=== PATIENT | female | born 1935 | race Caucasian/White ===

== ENCOUNTER 2016-12-05 21:05 | Inpatient (IN) | payer OTHER, BC ==
--- NOTE | 2016-12-05 21:24 | PDOC ---
[id number] FALL Time Seen by Provider: 12/05/16 21:24 History Source: Patient - History of Present Illness Initial Comments: 12/05/16 23:35 80 year old female s/p fall "legs feeling shaky for 2 days." while using a walker. patient hit head and c/o pain to lumbarsacral area. denies hip pain, headache, neck, fever, cough, chest pain, urinary complaints. patient has history of hypertension, DM Past History - Past Medical History Allergies/Adverse Reactions: Allergies Allergy/AdvReac Type Severity Reaction Status Date / Time amoxicillin [Amoxicillin] Allergy Verified 12/05/16 21:39 Penicillins Allergy Verified 12/05/16 21:39 escitalopram AdvReac Intermediate Verified 12/05/16 21:39 levofloxacin [Levofloxacin] AdvReac Intermediate Verified 12/05/16 21:39 Home Medications: Ambulatory Orders Atorvastatin Calcium 20 mg PO HS 11/23/15 Folic Acid 1 mg PO DAILY 11/23/15 Furosemide [Lasix -] 40 mg PO DAILY 11/23/15 Gabapentin 300 mg PO BID 11/23/15 Montelukast Na [Singulair -] 10 mg PO HS 11/23/15 Diltiazem Cd [Cardizem Cd -] 120 mg PO DAILY #30 cap.cd.24h 11/27/15 Alprazolam 1 mg PO QID #120 tablet MDD 4 03/01/16 Oxycodone HCl/Acetaminophen [Oxycodone-Acetaminophen 10-325] 1 each PO QID #120 tablet MDD 4 03/01/16 Bacitracin - [Bacitracin Topical Ointment -] 1 applic TP DAILY #1 tube 06/20/16 Cephalexin Monohydrate [Keflex -] 500 mg PO BID #14 capsule 06/20/16 Levothyroxine [Synthroid -] 25 mcg PO DAILY 12/05/16 Potassium Chloride 0 meq PO DAILY 12/05/16 Anemia: No Asthma: No Cancer: No Cardiac Disorders: No CVA: No COPD: Yes CHF: No Dementia: No Diabetes: No GI Disorders: No Disorders: Yes (uti) HTN: Yes Hypercholesterolemia: Yes Liver Disease: No Suicide Attempt (Hx): No Seizures: No Thyroid Disease: No - Surgical History Abdominal Surgery: No Cardiac Surgery: No Cholecystectomy: Yes Lung Surgery: No Neurologic Surgery: No - Immunization History Td Vaccination: Yes TDAP Vaccination: Yes Immunization Up to Date: Yes - Psycho/Social/Smoking Cessation Hx Anxiety: No Suicidal Ideation: No Smoking Status: Yes Smoking History: Former smoker Years of Tobacco Use: 0 Have you smoked in the past 12 months: Yes Number of Cigarettes Smoked Daily: 20 If you are a former smoker, when did you quit?: 2016 Cigars Per Day: 0 'Breaking Loose' booklet given: 11/23/15 Hx Alcohol Use: No Drug/Substance Use Hx: No Substance Use Type: None Hx Substance Use Treatment: No Review of Systems - Review of Systems Able to Perform ROS?: Yes Is the patient limited Greek proficient: No Constitutional: No: Symptoms Reported, See HPI, Chills, Diaphoresis, Fever, Loss of Appetite, Malaise, Night Sweats, Weakness, Weight Stable, Unintentional Wgt. Loss, Unexplained wgt Loss, Other Cardiac (ROS): No: Symptoms Reported, See HPI, Chest Pain, Edema, Irregular Heart Rate, Lightheadedness, Palpitations, Syncope, Chest Tightness, Other ABD/GI: No: Symptoms Reported, See HPI, Abdominal Distended, Abd. Pain w/ defecation, Blood Streaked Bowels, Constipated, Diarrhea, Difficulty Swallowing , Nausea, Poor Appetite, Poor Fluid Intake, Rectal Bleeding, Vomiting, Indigestion, Abdominal cramping, Tarry Stools, Other Integumentary: No: Symptoms Reported, See HPI, Bruising, Change in Color, Change in Hair/Nails, Dryness, Erythema, Flushing, Lesions, Lumps, Pallor, Pruritus, Rash, Sweating, Other Neurological: Yes: Weakness *Physical Exam - Vital Signs 12/05/16 23:41 Last Vital Signs Temp Pulse Resp BP Pulse Ox 98.9 F 103 H 20 127/61 82 L 12/05/16 21:35 12/05/16 21:35 12/05/16 21:35 12/05/16 21:35 12/05/16 21:35 12/05/16 23:52 HR: 73 o2 sat 93% on Room air - Physical Exam General Appearance: Yes: Appropriately Dressed Respiratory/Chest: positive: Lungs Clear, Normal Breath Sounds Cardiovascular: positive: Regular Rhythm, Regular Rate Gastrointestinal/Abdominal: positive: Normal Bowel Sounds, Soft Musculoskeletal: positive: Vertebral Tenderness (lumbar sacral area tenderness) Extremity: positive: Normal Capillary Refill, Normal Inspection, Normal Range of Motion Integumentary: positive: Normal Color, Dry, Warm Neurologic: positive: Fully Oriented ED Treatment Course - LABORATORY CBC & Chemistry Diagram: 12/05/16 21:49 12/05/16 21:49 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 - 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: A: near syncope, elderly fall hypokalemia P: potassium replacement cbc cmp ct head cervical spine lumbar sacral spine. patient signed out to Dr. yoo. patient to be admitted under Dr. finley's service *DC/Admit/Observation/Transfer Diagnosis at time of Disposition: Near syncope, Fall in elderly patient, Hypokalemia - Discharge Dispostion Admit: Yes - Referrals
[2016-12-05 22:15] LABS: BASOPHIL 0.2 % (0-2.0); MCHC 33.4 g/dl (32.0-36.0); MEAN CELL VOLUME 92.9 fl (80-96); MEAN PLT VOLUME 8.4 fl (7.5-11.1); NEUTROPHILS 85.3 % (42.8-82.8); PLATELET COUNT 296 K/MM3 (134-434)
[2016-12-05 22:21] LABS: INR 1.19 (0.82-1.09); PROTHROMBIN TIME (PATIENT) 13.1 SEC (9.98-11.88)
[2016-12-05 22:56] LABS: ALBUMIN 3.6 g/dl (3.4-5.0); ANION GAP 12 (8-16); BILIRUBIN,TOTAL 1.2 mg/dL (0.2-1.0); CALCIUM 9.4 mg/dL (8.5-10.1); CO2 43 mmol/L (21-32); COCKROFT - GAULT 32.1215; GLUCOSE,RANDOM 123 mg/dL (74-106); MAGNESIUM 2.6 mg/dL (1.8-2.4); SGOT/AST 17 U/L (15-37); SGPT/ALT 14 U/L (12-78); TOT PROT 7.6 g/dl (6.4-8.2)
[2016-12-05 22:59] LABS: ALK PHOS 140 U/L (45-117); TROPONIN I < 0.02 ng/ml (0.00-0.05)
[2016-12-05] MEDS ORDERED: KCL 10 MEQ IVPB 100 ML IVPB SCH (23:15)
[2016-12-05] MEDS ORDERED: POTASSIUM CHLORIDE TABS 20 MEQ TABLET.ER (FP) PO ONE (23:39)
[2016-12-05] MEDS ORDERED: KCL 10 MEQ IVPB 100 ML IVPB ONE (23:52)
--- NOTE | 2016-12-06 00:12 | PDOC ---
*Physical Exam - Vital Signs Last Vital Signs Temp Pulse Resp BP Pulse Ox 98.9 F 103 H 20 127/61 82 L 12/05/16 21:35 12/05/16 21:35 12/05/16 21:35 12/05/16 21:35 12/05/16 21:35 - Physical Exam Comments: 12/06/16 00:12 The patient was examined by [LAURA Luke] under my direct supervision. I personally evaluated the patient. I concur with the above findings and the plan of care. ED Treatment Course - LABORATORY CBC & Chemistry Diagram: 12/05/16 21:49 12/05/16 21:49 - ADDITIONAL ORDERS Additional order review: Laboratory Results 12/05/16 12/05/16 21:49 21:49 INR 1.19 H Sodium 138 Potassium 2.2 L* D Chloride 83 L D Carbon Dioxide 43 H D Anion Gap 12 BUN 52 H D Creatinine 2.0 H D Creat Clearance w eGFR 23.97 Random Glucose 123 H Calcium 9.4 Magnesium 2.6 H Total Bilirubin 1.2 H D AST 17 ALT 14 D Alkaline Phosphatase 140 H Creatine Kinase 41 Troponin I < 0.02 Total Protein 7.6 Albumin 3.6 12/05/16 21:49 RBC 4.01 MCV 92.9 MCHC 33.4 RDW 16.0 H MPV 8.4 Neutrophils % 85.3 H D Lymphocytes % 7.1 L D Monocytes % 6.4 Eosinophils % 1.0 Basophils % 0.2 - RADIOLOGY Radiology Studies Ordered: Category Date Time Status CHEST X-RAY PORTABLE* [RAD] Stat Radiology 12/05/16 21:39 Completed *DC/Admit/Observation/Transfer Diagnosis at time of Disposition: Near syncope - Referrals Referrals: Lanie Teresa MD [Primary Care Provider] - - Patient Instructions - Post Discharge Activity
[2016-12-06] MEDS ORDERED: POTASSIUM CHLORIDE TABS 20 MEQ TABLET.ER (FP) PO ONE ×3 (00:15→15:32)
[2016-12-06] MEDS: KCL 10 MEQ IVPB 100 ML IVPB SCH ×4 (00:16→17:00)
[2016-12-06] MEDS ORDERED: KCL 10 MEQ IVPB 100 ML IVPB ONE ×2 (01:26→16:45)
[2016-12-06] MEDS ORDERED: LEVOTHYROXINE NA 25 MCG TABLET (FP) ONE (05:55)
[2016-12-06] MEDS: LEVOTHYROXINE NA 25 MCG TABLET (FP) PO SCH (06:04)
--- NOTE | 2016-12-06 09:03 | EKG ---
Test Reason : Blood Pressure : / mmHG Vent. Rate : 076 BPM Atrial Rate : 076 BPM P-R Int : 202 ms QRS Dur : 116 ms QT Int : 406 ms P-R-T Axes : 040 -29 034 degrees QTc Int : 456 ms NORMAL SINUS RHYTHM INCOMPLETE LEFT BUNDLE BRANCH BLOCK NONSPECIFIC ST ABNORMALITY WHEN COMPARED WITH ECG OF 17-JUN-2016 20:45, INCOMPLETE LEFT BUNDLE BRANCH BLOCK IS NOW PRESENT Confirmed by RACHNA CADENA MD ([id number]) on 12/06/2016 9:03:17 AM Referred By: Confirmed By:RACHNA CADENA MD
[2016-12-06] MEDS ORDERED: POTASSIUM CHLORIDE ORAL LIQUID 20 MEQ/15 ML PO SCH (10:00)
[2016-12-06] MEDS ORDERED: PATIENT'S OWN MEDICATION (NON-FORMULARY) (Oxycodone Hcl/Acetaminophen [Oxycodone-Acetamino PO SCH (10:00)
[2016-12-06] MEDS ORDERED: PATIENT'S OWN MEDICATION (NON-FORMULARY) (Alprazolam [Alprazolam] 0.5 MG) PO SCH (10:00)
[2016-12-06] MEDS ORDERED: FUROSEMIDE 40 MG TABLET (FP) PO SCH (10:00)
--- NOTE | 2016-12-06 10:16 | HP ---
Admitting History and Physical - Primary Care Physician PCP: Brenda Tan I - Admission Chief Complaint: fall History of Present Illness: 1 year old female s/p fall "legs feeling shaky for 2 days." while using a walker. patient hit head and c/o pain to lumbarsacral area. denies hip pain, headache, neck, fever, cough, chest pain, urinary complaints. patient has history of hypertension, DM patient was preparing her dinner and was at [facility] when she truned around to put tray on table her legs gave way and she fell no los of consciosnuss no vomitting no diarrhea in days prior to the fall she has fallen before at home History Source: Patient, Medical Record - Past Medical History [employer]: Yes: TIA Cardiovascular: Yes: HTN, Hyperlipdemia Pulmonary: Yes: COPD Gastrointestinal: Yes: GERD Musculoskeletal: Yes: Chronic low back pain Endocrine: Yes: Hypothyroidism - Past Surgical History Past Surgical History: Yes: Cholecystectomy Additional Past Surgical History: righ hip pinning - Smoking History Smoking history: Former smoker Have you smoked in the past 12 months: Yes Aproximately how many cigarettes per day: 20 If you are a former smoker, when did you quit?: 2016 - Alcohol/Substance Use Hx Alcohol Use: No Home Medications - Allergies Allergies/Adverse Reactions: Allergies Allergy/AdvReac Type Severity Reaction Status Date / Time amoxicillin [Amoxicillin] Allergy Verified 12/05/16 21:39 Penicillins Allergy Verified 12/05/16 21:39 escitalopram AdvReac Intermediate Verified 12/05/16 21:39 levofloxacin [Levofloxacin] AdvReac Intermediate Verified 12/05/16 21:39 - Home Medications Home Medications: Ambulatory Orders Atorvastatin Calcium 20 mg PO HS 11/23/15 Folic Acid 1 mg PO DAILY 11/23/15 Furosemide [Lasix -] 40 mg PO DAILY 11/23/15 Gabapentin 300 mg PO BID 11/23/15 Montelukast Na [Singulair -] 10 mg PO HS 11/23/15 Diltiazem Cd [Cardizem Cd -] 120 mg PO DAILY #30 cap.cd.24h 11/27/15 Alprazolam 1 mg PO QID #120 tablet MDD 4 03/01/16 Oxycodone HCl/Acetaminophen [Oxycodone-Acetaminophen 10-325] 1 each PO QID #120 tablet MDD 4 03/01/16 Bacitracin - [Bacitracin Topical Ointment -] 1 applic TP DAILY #1 tube 06/20/16 Cephalexin Monohydrate [Keflex -] 500 mg PO BID #14 capsule 06/20/16 Levothyroxine [Synthroid -] 25 mcg PO DAILY 12/05/16 Potassium Chloride 0 meq PO DAILY 12/05/16 Review of Systems - Review of Systems Constitutional: reports: Other (hungry) HENT: reports: No Symptoms Neck: reports: No Symptoms Cardiovascular: reports: No Symptoms Respiratory: reports: No Symptoms Gastrointestinal: reports: No Symptoms Genitourinary: reports: No Symptoms Physical Examination Vital Signs: Vital Signs Temperature 98.9 F 12/05/16 21:35 Pulse Rate 80 12/06/16 05:46 Respiratory Rate 20 12/06/16 05:46 Blood Pressure 108/52 12/06/16 05:46 O2 Sat by Pulse Oximetry (%) 82 L 12/05/16 21:35 Constitutional: Yes: Calm Neck: Yes: Trachea Midline Cardiovascular: Yes: Regular Rate and Rhythm, S1, S2 Respiratory: Yes: CTA Bilaterally Gastrointestinal: Yes: Normal Bowel Sounds, Soft Edema: Yes (trace) Neurological: Yes: Alert, Oriented Imaging - Results X-ray: Report Reviewed Cat Scan: Report Reviewed Problem List - Problems (1) Fall in elderly patient Assessment/Plan: r/o infectious eitology s eletrolyte imbalance check UA - leukocytosis on labs, hypokalemia PT eval snf placment PMR Code(s): R29.6 - REPEATED FALLS (2) Acute kidney injury Assessment/Plan: iv hydration renal sono urine analysis and lytes renal eval Code(s): N17.9 - ACUTE KIDNEY FAILURE, UNSPECIFIED (3) Hypokalemia Assessment/Plan: repleted recheck K renal on board magneusim level is ok hold duiretic urine lytes Code(s): E87.6 - HYPOKALEMIA (4) HLD (hyperlipidemia) Assessment/Plan: lipid panel statin Code(s): E78.5 - HYPERLIPIDEMIA, UNSPECIFIED (5) HTN (hypertension) Assessment/Plan: BP is ok off meds Code(s): I10 - ESSENTIAL (PRIMARY) HYPERTENSION (6) LBP (low back pain) Assessment/Plan: pain managmeent with dr mercy benson Code(s): M54.5 - LOW BACK PAIN Qualifiers: Chronicity: chronic (7) Hypothyroid Assessment/Plan: synthroid check tsh Code(s): E03.9 - HYPOTHYROIDISM, UNSPECIFIED (8) Anxiety Assessment/Plan: alprazolam Code(s): F41.9 - ANXIETY DISORDER, UNSPECIFIED
[2016-12-06 10:25] LABS: CALCIUM 9.6 mg/dL (8.5-10.1); COCKROFT - GAULT 45.8915; CREATININE 1.4 mg/dL (0.55-1.02); MAGNESIUM 2.5 mg/dL (1.8-2.4)
[2016-12-06] MEDS: FOLIC ACID 1 MG TABLET (FP) PO SCH (10:35)
[2016-12-06] MEDS: GABAPENTIN 300 MG CAPSULE (FP) PO SCH ×2 (10:36→22:40)
[2016-12-06] MEDS: oxyCODONE HCL 5 MG TABLET PO SCH ×2 (10:36→14:41)
[2016-12-06] MEDS: ACETAMINOPHEN 325 MG TABLET (FP) PO SCH ×2 (10:36→14:42)
[2016-12-06] MEDS: ALPRAZolam 0.25 MG TABLET PO SCH ×2 (10:36→14:43)
--- NOTE | 2016-12-06 11:00 | PN ---
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 (short form) - Note 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: ID Consult dictated S/P Mechanical fall Leukocytosis, source unclear Chronic leukocytosis noted on review of prior admissions Azotemia Obtain U/A, c/s Await blood c/s Observe off antibiotics
[2016-12-06] MEDS ORDERED: ACETAMINOPHEN 325 MG TABLET (FP) ONE (11:41)
[2016-12-06] MEDS ORDERED: ALPRAZolam 0.25 MG TABLET ONE (11:42)
[2016-12-06] MEDS ORDERED: dilTIAZem HCL 60 MG TABLET (FP) ONE (11:43)
[2016-12-06] MEDS ORDERED: oxyCODONE HCL 5 MG TABLET ONE ×2 (11:43→11:45)
[2016-12-06] MEDS ORDERED: FOLIC ACID 1 MG TABLET (FP) ONE (11:43)
[2016-12-06] MEDS ORDERED: GABAPENTIN 100 MG CAPSULE (FP) ONE ×2 (11:43→11:44)
--- NOTE | 2016-12-06 11:58 | CON.CARD ---
Consult Consult Specialty:: Cardiology Referred by:: Dr. Teresa Reason for Consultation:: Pre-syncope - History of Present Illness Chief Complaint: Fall at home History of Present Illness: This is a 80 yo former smoker F with medical history of HTN, DM, COPD, and hypothyroidism, who was admitted after falling at home. She states that she was at home when she fell after feeling her legs shaking s/p hip and head trauma. Denies LOC, weakness, STRONG. She also denies any CP, palpitations, dizziness, lightheadedness, or abnormal movements prior or after episode. No current complaints. EMS brought her to ED where she was found to have severe hypokalemia (2.2), STEVEN. Negative CT head. K has been repleted. Admitted for further treatment and work up. - History Source History Provided By: Patient Limitations to Obtaining History: No Limitations - Past Medical History [employer] POL[employer]ER HAND: Yes: TIA Cardio/Vascular: Yes: HTN, Hyperlipdemia Pulmonary: Yes: COPD Gastrointestinal: Yes: GERD Musculoskeletal: Yes: Chronic low back pain Endocrine: Yes: Hypothyroidism - Past Surgical History Past Surgical History: Yes: Cholecystectomy - Alcohol/Substance Use Hx Alcohol Use: No - Smoking History Smoking history: Former smoker Have you smoked in the past 12 months: Yes Aproximately how many cigarettes per day: 20 If you are a former smoker, when did you quit?: 2016 - Social History Usual Living Arrangement: Assisted Living Home Medications - Allergies Allergies/Adverse Reactions: Allergies Allergy/AdvReac Type Severity Reaction Status Date / Time amoxicillin [Amoxicillin] Allergy Verified 12/05/16 21:39 Penicillins Allergy Verified 12/05/16 21:39 escitalopram AdvReac Intermediate Verified 12/05/16 21:39 levofloxacin [Levofloxacin] AdvReac Intermediate Verified 12/05/16 21:39 - Home Medications Home Medications: Ambulatory Orders Atorvastatin Calcium 20 mg PO HS 11/23/15 Folic Acid 1 mg PO DAILY 11/23/15 Furosemide [Lasix -] 40 mg PO DAILY 11/23/15 Gabapentin 300 mg PO BID 11/23/15 Montelukast Na [Singulair -] 10 mg PO HS 11/23/15 Diltiazem Cd [Cardizem Cd -] 120 mg PO DAILY #30 cap.cd.24h 11/27/15 Alprazolam 1 mg PO QID #120 tablet MDD 4 03/01/16 Oxycodone HCl/Acetaminophen [Oxycodone-Acetaminophen 10-325] 1 each PO QID #120 tablet MDD 4 03/01/16 Bacitracin - [Bacitracin Topical Ointment -] 1 applic TP DAILY #1 tube 06/20/16 Cephalexin Monohydrate [Keflex -] 500 mg PO BID #14 capsule 06/20/16 Levothyroxine [Synthroid -] 25 mcg PO DAILY 12/05/16 Potassium Chloride 0 meq PO DAILY 12/05/16 Review of Systems - Review of Systems Constitutional: reports: No Symptoms Cardiovascular: reports: No Symptoms Respiratory: reports: No Symptoms Gastrointestinal: reports: No Symptoms Musculoskeletal: reports: Back Pain Neurological: reports: No Symptoms - Risk Factors Known Risk Factors: Yes: Age, Diabetes Mellitus, Hypertension, Physical Inactivity Vital Signs: Vital Signs Temperature 98.9 F 12/05/16 21:35 Pulse Rate 80 12/06/16 05:46 Respiratory Rate 20 12/06/16 05:46 Blood Pressure 108/52 12/06/16 05:46 O2 Sat by Pulse Oximetry (%) 95 12/05/16 21:40 Constitutional: Yes: Well Nourished (Dry mucosa), No Distress, Calm Eyes: Yes: WNL Respiratory: Yes: WNL, CTA Bilaterally Gastrointestinal: Yes: Normal Bowel Sounds, Soft, Abdomen, Obese Cardiovascular: Yes: Regular Rate and Rhythm JVD: No Carotid Bruit: No Heart Sounds: Yes: S1, S2. No: S3, S4, Bruit Extremities: Yes: WNL (Warm extremities. Chronic skin changes) Edema: No Peripheral Pulses WNL: Yes Neurological: Yes: Alert, Oriented - Other Data Labs, Other Data: CBC, BMP 12/06/16 09:44 INR, PTT INR 1.19 (0.82-1.09) H 12/05/16 21:49 Troponin, BNP 12/05/16 21:49 Trop onin I < 0.02 Cr: 2.0 to 1.4. NSR. Normal axis. Incomplete LBBB. Non-specific ST-T changes. Echo: Report Reviewed (10/2015: Normal EF. Normal LV size and function. Normal RV function. Trace MR. Mild Aortic sclerosis.) Ejection Fraction %: LVEF > or = 40 % (10/2015) Imaging - Results X-ray: Image Reviewed EKG: Image Reviewed Problem List - Problems (1) Acute kidney injury Code(s): N17.9 - ACUTE KIDNEY FAILURE, UNSPECIFIED (2) Fall in elderly patient Code(s): R29.6 - REPEATED FALLS (3) Hypokalemia Code(s): E87.6 - HYPOKALEMIA (4) COPD (chronic obstructive pulmonary disease) Code(s): J44.9 - CHRONIC OBSTRUCTIVE PULMONARY DISEASE, UNSPECIFIED (5) HTN (hypertension) Code(s): I10 - ESSENTIAL (PRIMARY) HYPERTENSION Assessment/Plan 80 yo former smoker F with medical history of HTN, DM, COPD, and hypothyroidism , admitted after a mechanical fall at home. Patient was found to have STEVEN and severe hypokalemia. No CV symptoms. There are no signs of HF, fluid overload, or active CV ischemia. STEVEN likely pre-renal? Work-up by primary team Hypokalemia: No evidence of tachy - bradyarrhythmias. Recs. Telemetry Follow ECG until normalization of electrolytes. Replete K to keep it within the normal limits (4-5). Gentle hydration. Avoid nephrotoxic meds for now. Hold diuretics. Continue other medical therapy. Recommend echocardiogram for functional evaluation. Recommendations discussed with primary team Will follow with you. Thank you.
--- NOTE | 2016-12-06 12:08 | CONS ---
DATE OF CONSULTATION: DATE OF DICTATION: 12/06/2016 HISTORY OF PRESENT ILLNESS: The patient is an 80-year-old female who is evaluated for leukocytosis. Patient was seen in the emergency department. She was taken to the hospital after a mechanical fall at home. Patient states that she was in her kitchen when she lost her balance, her legs gave out, and she fell, sustaining trauma to her coccyx and posterior head. No loss of consciousness was reported. She was evaluated in the emergency room, where a CAT scan of the head was negative for infarct or bleed. She was noted to be hypokalemic. In addition, she was noted to have an elevated white blood cell count. Chest x-ray showed increased markings bilaterally. At the present time, she is awake and alert. She denies any recent febrile illness. She denies any focal complaint other than pain in the coccyx area. No complaints of recent respiratory tract illness. Denies chest pain, shortness of breath, cough, or sputum production. Denies any vomiting or diarrhea. No dysuria or hematuria. No complaints of infected skin wounds. PAST MEDICAL HISTORY: Positive for COPD, hypertension, hyperlipidemia, hypothyroidism, history of cellulitis of the lower extremities in the past. PAST SURGICAL HISTORY: Status post cholecystectomy and hip surgery. ALLERGIES: PENICILLIN and FLUOROQUINOLONES. Patient reports developing rash years ago to PENICILLIN. No history of anaphylaxis. She has tolerated cephalosporins in the past. The nature of the QUINOLONE allergy not clear. SOCIAL HISTORY: Patient lives in the community. She is a former smoker; she stopped 9 months ago after a 50-year history of tobacco use. SYSTEMS REVIEW:Neurologic: No loss of consciousness, seizure activity, or focal weakness. Cardiac: Negative chest pain or palpitations. Respiratory: Negative cough or sputum production. Gastrointestinal: Negative vomiting or diarrhea. Genitourinary: Negative for urinary tract infection. LABORATORY DATA: White count 13.0, 85 neutrophils, 7 lymphocytes, 6 monocytes, hematocrit 37.2, platelet count 296. Chest x-ray shows increased markings bilaterally, no focal infiltrate. PHYSICAL EXAMINATION: General: She is awake and alert, lying in the stretcher. She is in no acute distress. Vital Signs: Temperature 98.9, blood pressure 108/52, pulse 80, regular, respirations 20 per minute. HEENT: Sclerae anicteric. Cardiac: Heart sounds S1, S2. Lungs: Clear. No rhonchi, rales, or wheezing. Abdomen: Soft, obese. No tenderness elicited. No mass, rebound, or rigidity. Extremities: Negative for edema. There was chronic venostasis dermatitis. No cellulitis is noted. IMPRESSION: 1. Leukocytosis, unclear source. 2. Status post mechanical fall with sacral and head trauma. 3. Azotemia. RECOMMENDATIONS: Source of leukocytosis not clear. Obtain urinalysis and urine culture. In the absence of any evidence of urinary tract infection, would observe off antibiotic therapy. Await blood culture results. Repeat CBC. Will follow. Thank you for the kind referral. RACHNA GARNER M.D. JOVANNA/[id number]
[2016-12-06 12:42] LABS: URINE APPEARANCE CLEAR; URINE BILIRUBIN NEGATIVE (NEGATIVE); URINE COLOR STRAW; URINE GLUCOSE (UA) NEGATIVE (NEGATIVE); URINE KETONE NEGATIVE (NEGATIVE); URINE LEUK ESTERASE NEGATIVE (NEGATIVE); URINE NITRITE NEGATIVE (NEGATIVE); URINE PROTEIN NEGATIVE (NEGATIVE); URINE UROBILINOGEN NEGATIVE E.U./dl (0.2-1.0)
[2016-12-06 12:45] LABS: URINE BLOOD 2+ (NEGATIVE)
[2016-12-06 12:47] LABS: URINE HYALINE CAST 8 /lpf; URINE MUCUS RARE; URINE RBC 4 /hpf (0-3); URINE WBC <1 /hpf (3-5)
--- NOTE | 2016-12-06 12:48 | CONSULT ---
Consult - text type - Consultation Consultation Note: Renal Consult for STEVEN and Hypokalemia This is a 80 year old woman with PMhx of Hypertension, Hypothyrodism, COPD, Osteoarthritis who presented s/p fall at home with STEVEN with BUN/Cr of 52/2. Pt reports that her legs felt weak and gave out on her. Denies any LOC or head trauma. No chest pain, palpitations, ABd pain, N/V/D. Pt has been on lasix for mangement of LE edema. Reports not eating or drinking well the last few days. No flank pain. Denies any NSAID use. No recent abx use. No rash. Given KCl supplamentation and IVF in the ED. PMhx: as above Allergies: As per EMR Family Hx: NC Social Hx: Former smoker ROS: As per HPI, all other pertient ros negative Home Meds: Home Medications Medication Instructions Recorded Atorvastatin Calcium 20 mg PO HS 11/23/15 Folic Acid 1 mg PO DAILY 11/23/15 Furosemide [Lasix -] 40 mg PO DAILY 11/23/15 Gabapentin 300 mg PO BID 11/23/15 Montelukast Na [Singulair -] 10 mg PO HS 11/23/15 Diltiazem Cd [Cardizem Cd -] 120 mg PO DAILY #30 cap.cd.24h 11/27/15 Alprazolam 1 mg PO QID #120 tablet MDD 4 03/01/16 Oxycodone HCl/Acetaminophen 1 each PO QID #120 tablet MDD 4 03/01/16 [Oxycodone-Acetaminophen 10-325] Bacitracin - [Bacitracin Topical 1 applic TP DAILY #1 tube 06/20/16 Ointment -] Cephalexin Monohydrate [Keflex -] 500 mg PO BID #14 capsule 06/20/16 Levothyroxine [Synthroid -] 25 mcg PO DAILY 12/05/16 Potassium Chloride 0 meq PO DAILY 12/05/16 Vital Signs Temperature 98.9 F 12/05/16 21:35 Pulse Rate 80 12/06/16 05:46 Respiratory Rate 20 12/06/16 05:46 Blood Pressure 108/52 12/06/16 05:46 O2 Sat by Pulse Oximetry (%) 95 12/05/16 21:40 Intake & Output 12/03/16 12/04/16 12/05/16 12/06/16 23:59 23:59 23:59 23:59 Weight 200 lb Gen: NAD, awake and alert HEENT: NC/AT, Dry MM, No JVD CVS: RRR, No M/R Lungs: + congestion at lung bases Abd: soft NT/ND Ext: Trace edema in LE, no clubbing or cyanosis : No bladder distension CBC, BMP 12/05/16 21:49 12/06/16 09:44 Laboratory Tests 12/05/16 12/05/16 12/06/16 21:49 21:49 09:44 Lymphocytes % 7.1 L D BUN 52 H D 41 H D Creatinine 2.0 H D 1.4 H D Calcium 9.6 Magnesium 2.5 H Urine Protein Urine Blood U Random Total Protein Ur Random Sodium Ur Random Urea Nitrogn 12/06/16 12/06/16 12/06/16 12:26 12:26 12:26 Lymphocytes % BUN Creatinine Calcium Magnesium Urine Protein Negative Urine Blood 2+ H U Random Total Protein Ur Random Sodium Pending Ur Random Urea Nitrogn Pending 12/06/16 12:26 Lymphocytes % BUN Creatinine Calcium Magnesium Urine Protein Urine Blood U Random Total Protein Pending Ur Random Sodium Ur Random Urea Nitrogn Current Medications Acetaminophen (Tylenol -) 325 mg PO QID [facility] Last Admin: 12/06/16 10:36 Dose: 325 mg Alprazolam (Xanax -) 0.5 mg PO QID [facility] Last Admin: 12/06/16 10:36 Dose: 0.5 mg Atorvastatin Calcium (Lipitor -) 20 mg PO [facility] Bacitracin (Bacitracin -) 1 applic TP DAILY [facility] Diltiazem HCl (Cardizem Cd -) 120 mg PO DAILY [facility] Last Admin: 12/06/16 11:35 Dose: 120 mg Folic Acid (Folic Acid -) 1 mg PO DAILY [facility] Last Admin: 12/06/16 10:35 Dose: 1 mg Gabapentin (Neurontin -) 300 mg PO BID [facility] Last Admin: 12/06/16 10:36 Dose: 300 mg Heparin Sodium (Porcine) (Heparin -) 5,000 unit SQ BID [facility] Potassium Chloride (Potassium Chloride 10 Meq Premix Ivpb -) 100 mls @ 100 mls/ hr IVPB Q60M [facility] Stop: 12/06/16 13:59 Potassium Chloride 40 meq/ (Sodium Chloride) 1,020 mls @ 75 mls/hr IVPB ASDIR [facility] Stop: 12/07/16 12:59 Levothyroxine Sodium (Synthroid -) 25 mcg PO DAILY@0700 [facility] Last Admin: 12/06/16 06:04 Dose: 25 mcg Montelukast Sodium (Singulair -) 10 mg PO HS [facility] Oxycodone HCl (Roxicodone -) 10 mg PO QID [facility] Last Admin: 12/06/16 10:36 Dose: 10 mg Potassium Chloride (Potassium Chloride Oral Liquid) 40 meq PO DAILY [facility] Potassium Chloride (Potassium Chloride Oral Liquid) 40 meq PO ONCE ONE Stop: 12/06/16 12:47 A/P 80 year old woman with PMhx of Hypertension, Hypothyrodism, COPD, Osteoarthritis who presented s/p fall at home with STEVEN with BUN/Cr of 52/2. #Acute Kidney Injruy likely due to intravascular volume depletion UA showed nor protein + Blood with only a few RBC's -> heme pigment vs. Rhabdo pigment check repeat CPK FeNa, FeUrea pending Gentle IVF 1/2NS with 40 KCl at 75cc per hour for 24 hours Trend BUN/Cr Dose all meds for Cr Cl less then 30 hold Lasix Avoid JACQUES/ARB for now #Near Syncope/Fall Cardiology following Fall precautions #Hypokalemia with normal serum Mg likey due to diuretics (pt was not taking KCL supplementation) KCL 40meq PO this am and 20meq IV Repeat BMP in evening may benefit from aldactone once volume status is improved #Hypertension BP is at goal Continue Cardizem #High Serum Bicarb (Metabolic alkalosis vs. Metabolic compensation for Respiratory acidosis) Check ABG Thank you Cong Rosa DO
[2016-12-06 13:47] VITALS: BMI 33.6
[2016-12-06 14:00] LABS: ARTERIAL BLD GAS O2 SATURATION 95.6 % (90-98.9); ARTERIAL BLOOD GAS BASE EXCESS 18.4 meq/l (-2-2); ARTERIAL BLOOD GAS HCO3 44.5 meq/L (22-26); ARTERIAL BLOOD GAS PO2 72.9 mmHg (68-100)
[2016-12-06] MEDS ORDERED: POTASSIUM CHLORIDE ORAL LIQUID 20 MEQ/15 ML PO ONE (14:00)
[2016-12-06 14:01] LABS: ALLENS TEST POSITIVE; ART PUNCT SITE RIGHT RADIAL; LPM/O2% 3L; PT. ON O2? YES; TYPE OF O2 NASAL O2
[2016-12-06 14:02] LABS: ARTERIAL BLOOD GAS pH 7.54 (7.35-7.45)
[2016-12-06 15:48] LABS: CALCIUM 9.2 mg/dL (8.5-10.1); COCKROFT - GAULT 38.148; CREATININE 1.6 mg/dL (0.55-1.02)
[2016-12-06] MEDS: SODIUM CHLORIDE 0.45% 1,000 ML with POTASSIUM CHLORIDE 40 MEQ IVPB SCH (16:40)
[2016-12-06] MEDS ORDERED: ACETAMINOPHEN 325 MG TABLET (FP) PO PRN (17:40)
[2016-12-06] MEDS ORDERED: oxyCODONE HCL 5 MG TABLET PO SCH (18:00)
[2016-12-06] MEDS: ALPRAZolam 0.25 MG TABLET PO PRN (22:40)
[2016-12-06] MEDS: ATORVASTATIN CA 20 MG TABLET (FP) PO SCH (22:40)
[2016-12-06] MEDS: MONTELUKAST NA 10 MG TABLET PO SCH (22:40)
[2016-12-06] MEDS: oxyCODONE HCL 5 MG TABLET PO PRN (22:42)
[2016-12-06] MEDS: HEPARIN NA (PORCINE) 5,000 UNITS/ML 1ML VIAL SQ SCH (22:43)
[2016-12-07] MEDS: LEVOTHYROXINE NA 25 MCG TABLET (FP) PO SCH (06:02)
[2016-12-07 07:54] LABS: MEAN PLT VOLUME 8.6 fl (7.5-11.1)
[2016-12-07 08:25] LABS: TROPONIN I < 0.02 ng/ml (0.00-0.05)
[2016-12-07 08:27] LABS: ALBUMIN 3.3 g/dl (3.4-5.0); BILIRUBIN,TOTAL 0.9 mg/dL (0.2-1.0); COCKROFT - GAULT 46.954; CREATININE 1.3 mg/dL (0.55-1.02); MAGNESIUM 2.4 mg/dL (1.8-2.4); PHOSPHOROUS 2.2 mg/dL (2.5-4.9); THYROID STIMULATING HORMONE 3.04 uIU/ml (0.358-3.74); TOT PROT 7.2 g/dl (6.4-8.2)
[2016-12-07 09:06] LABS: WHITE BLOOD COUNT 8.8 K/mm3 (4.0-10.0)
[2016-12-07 09:07] LABS: BASOPHIL 0.6 % (0-2.0); EOSINOPHIL 5.6 % (0-4.5); MCH 31.6 pg (25.7-33.7); MEAN CELL VOLUME 95.7 fl (80-96); NEUTROPHILS 60.4 % (42.8-82.8); PLATELET COUNT 261 K/MM3 (134-434); RDW 16.6 % (11.6-15.6)
--- NOTE | 2016-12-07 09:28 | PN ---
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, Physician Chief Complaint: IN [facility] - Current Medication List Current Medications: Active Medications Acetaminophen (Tylenol -) 325 mg PO Q6H PRN Last Admin: 12/06/16 22:40 Dose: 325 mg Alprazolam (Xanax -) 0.5 mg PO Q6H PRN Last Admin: 12/06/16 22:40 Dose: 0.5 mg Atorvastatin Calcium (Lipitor -) 20 mg PO [facility] Last Admin: 12/06/16 22:40 Dose: 20 mg Bacitracin (Bacitracin -) 1 applic TP DAILY [facility] Diltiazem HCl (Cardizem Cd -) 120 mg PO DAILY [facility] Last Admin: 12/06/16 11:35 Dose: 120 mg Folic Acid (Folic Acid -) 1 mg PO DAILY [facility] Last Admin: 12/06/16 10:35 Dose: 1 mg Gabapentin (Neurontin -) 300 mg PO BID [facility] Last Admin: 12/06/16 22:40 Dose: 300 mg Heparin Sodium (Porcine) (Heparin -) 5,000 unit SQ BID [facility] Last Admin: 12/06/16 22:43 Dose: 5,000 unit Potassium Chloride 40 meq/ (Sodium Chloride) 1,020 mls @ 75 mls/hr IVPB ASDIR [facility] Stop: 12/07/16 14:59 Last Admin: 12/06/16 16:40 Dose: 75 mls/hr Levothyroxine Sodium (Synthroid -) 25 mcg PO DAILY@0700 [facility] Last Admin: 12/07/16 06:02 Dose: 25 mcg Montelukast Sodium (Singulair -) 10 mg PO [facility] Last Admin: 12/06/16 22:40 Dose: 10 mg Oxycodone HCl (Roxicodone -) 10 mg PO Q6H PRN Last Admin: 12/06/16 22:42 Dose: 10 mg Potassium Chloride (Potassium Chloride Oral Liquid) 40 meq PO DAILY [facility] - Objective Vital Signs: Vital Signs Temperature 97.2 F L 12/07/16 02:00 Pulse Rate 60 12/07/16 02:00 Respiratory Rate 20 12/07/16 02:00 Blood Pressure 103/52 12/07/16 02:00 O2 Sat by Pulse Oximetry (%) 95 12/06/16 13:00 Constitutional: Yes: Calm Neck: Yes: WNL Cardiovascular: Yes: WNL Respiratory: Yes: WNL Gastrointestinal: Yes: WNL Edema: No Labs: CBC, BMP 12/07/16 06:30 12/07/16 06:30 INR, PTT INR 1.19 (0.82-1.09) H 12/05/16 21:49 Problem List - Problems (1) Leukocytosis Code(s): D72.829 - ELEVATED WHITE BLOOD CELL COUNT, UNSPECIFIED (2) Acute kidney injury Code(s): N17.9 - ACUTE KIDNEY FAILURE, UNSPECIFIED (3) Fall in elderly patient Code(s): R29.6 - REPEATED FALLS (4) Hypothyroid Code(s): E03.9 - HYPOTHYROIDISM, UNSPECIFIED (5) COPD (chronic obstructive pulmonary disease) Code(s): J44.9 - CHRONIC OBSTRUCTIVE PULMONARY DISEASE, UNSPECIFIED (6) HTN (hypertension) Code(s): I10 - ESSENTIAL (PRIMARY) HYPERTENSION Assessment/Plan (1) Fall in elderly patient Assessment/Plan: PT eval snf placment PMR Code(s): R29.6 - REPEATED FALLS (2) Acute kidney injury Assessment/Plan: iv hydration improved renal eval Code(s): N17.9 - ACUTE KIDNEY FAILURE, UNSPECIFIED (3) Hypokalemia Assessment/Plan: renal on board improving Code(s): E87.6 - HYPOKALEMIA (4) HLD (hyperlipidemia) Assessment/Plan: lipid panel statin Code(s): E78.5 - HYPERLIPIDEMIA, UNSPECIFIED (5) HTN (hypertension) Assessment/Plan: BP is ok echo noted -> defer to cardio Code(s): I10 - ESSENTIAL (PRIMARY) HYPERTENSION (6) LBP (low back pain) Assessment/Plan: pain managmeent with dr mercy benson Code(s): M54.5 - LOW BACK PAIN Qualifiers: Chronicity: chronic (7) Hypothyroid Assessment/Plan: synthroid check tsh -> wnl Code(s): E03.9 - HYPOTHYROIDISM, UNSPECIFIED (8) Anxiety Assessment/Plan: alprazolam Code(s): F41.9 - ANXIETY DISORDER, UNSPECIFIED (9) Leukocytosis Code(s): D72.829 - ELEVATED WHITE BLOOD CELL COUNT, UNSPECIFIED bcx +braulio being monitored off abx id on case wbc now normal [facility] FM
[2016-12-07] MEDS: FOLIC ACID 1 MG TABLET (FP) PO SCH (10:23)
[2016-12-07] MEDS: POTASSIUM CHLORIDE ORAL LIQUID 20 MEQ/15 ML PO ONE ×2 (10:24→10:25)
[2016-12-07] MEDS: GABAPENTIN 300 MG CAPSULE (FP) PO SCH ×2 (10:24→21:32)
[2016-12-07] MEDS: HEPARIN NA (PORCINE) 5,000 UNITS/ML 1ML VIAL SQ SCH ×2 (10:24→21:32)
[2016-12-07] MEDS: BACITRACIN 30 GM TUBE TOPICAL OINTMENT TP SCH (10:25)
--- NOTE | 2016-12-07 10:40 | PN ---
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 (short form) - Note 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: Renal Follow up for STEVEN/Hypokalemia Pt seen and examined at the bedside no acute complaints wants to go home no N/V/D on IVF Vital Signs Temperature 97.2 F L 12/07/16 02:00 Pulse Rate 60 12/07/16 02:00 Respiratory Rate 20 12/07/16 02:00 Blood Pressure 103/52 12/07/16 02:00 O2 Sat by Pulse Oximetry (%) 95 12/06/16 13:00 Intake & Output 12/04/16 12/05/16 12/06/16 12/07/16 23:59 23:59 23:59 23:59 Intake Total 300 400 Balance 300 400 Weight 200 lb 190 lb Gen: NAD, awake and alert CVS: RRR, No M/R Lungs: + congestion at lung bases Abd: soft NT/ND Ext: Trace edema in LE, no clubbing or cyanosis CBC, BMP 12/07/16 06:30 12/07/16 06:30 Current Medications Acetaminophen (Tylenol -) 325 mg PO Q6H PRN Last Admin: 12/06/16 22:40 Dose: 325 mg Alprazolam (Xanax -) 0.5 mg PO Q6H PRN Last Admin: 12/06/16 22:40 Dose: 0.5 mg Atorvastatin Calcium (Lipitor -) 20 mg PO HS [facility] Last Admin: 12/06/16 22:40 Dose: 20 mg Bacitracin (Bacitracin -) 1 applic TP DAILY [facility] Last Admin: 12/07/16 10:25 Dose: 1 applic Diltiazem HCl (Cardizem Cd -) 120 mg PO DAILY [facility] Last Admin: 12/07/16 10:23 Dose: 120 mg Folic Acid (Folic Acid -) 1 mg PO DAILY [facility] Last Admin: 12/07/16 10:23 Dose: 1 mg Gabapentin (Neurontin -) 300 mg PO BID [facility] Last Admin: 12/07/16 10:24 Dose: 300 mg Heparin Sodium (Porcine) (Heparin -) 5,000 unit SQ BID [facility] Last Admin: 12/07/16 10:24 Dose: 5,000 unit Potassium Chloride 40 meq/ (Sodium Chloride) 1,020 mls @ 75 mls/hr IVPB ASDIR [facility] Stop: 12/07/16 14:59 Last Admin: 12/06/16 16:40 Dose: 75 mls/hr Levothyroxine Sodium (Synthroid -) 25 mcg PO DAILY@0700 [facility] Last Admin: 12/07/16 06:02 Dose: 25 mcg Montelukast Sodium (Singulair -) 10 mg PO HS [facility] Last Admin: 12/06/16 22:40 Dose: 10 mg Oxycodone HCl (Roxicodone -) 10 mg PO Q6H PRN Last Admin: 12/06/16 22:42 Dose: 10 mg Potassium Chloride (Potassium Chloride Oral Liquid) 40 meq PO DAILY [facility] Potassium Phos/Sodium Phos (Phos-Nak Packet -) 1 packet PO TID [facility] Stop: 12/09/16 06:01 A/P 80 year old woman with PMhx of Hypertension, Hypothyrodism, COPD, Osteoarthritis who presented s/p fall at home with STEVEN with BUN/Cr of 52/2. #Acute Kidney Injruy likely due to intravascular volume depletion FeUrea consistent with pre-renal injury from volume depletion renal function improving continue gentle IVF Hydration #Near Syncope/Fall Cardiology following Fall precautions #Hypokalemia with normal serum Mg likey due to diuretics (pt was not taking KCL supplementation) Give KCL 80meq PO today and continue Kcl in IVF #Hypertension BP is at goal Continue Cardizem #High Serum Bicarb (Metabolic alkalosis vs. Metabolic compensation for Respiratory acidosis) ABG showed metabolic alkalosis likely from volume contraction #Hypoxia on O2 Continue supplemental O2, work up as per primary Thank you Cong Rosa DO
[2016-12-07] MEDS: POTASSIUM CHLORIDE ORAL LIQUID 20 MEQ/15 ML PO SCH (11:44)
[2016-12-07] MEDS: SODIUM CHLORIDE 0.45% 1,000 ML with POTASSIUM CHLORIDE 40 MEQ IVPB SCH (11:45)
[2016-12-07 12:20] LABS: TROPONIN I < 0.02 ng/ml (0.00-0.05)
--- NOTE | 2016-12-07 12:41 | PN ---
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, Physician History of Present Illness: Lab reports +BC GPCCL x 2 bottles Pt awake and alert Offers no complaints Afebrile WBC now WNL - Current Medication List Current Medications: Active Medications Acetaminophen (Tylenol -) 325 mg PO Q6H PRN Last Admin: 12/06/16 22:40 Dose: 325 mg Alprazolam (Xanax -) 0.5 mg PO Q6H PRN Last Admin: 12/06/16 22:40 Dose: 0.5 mg Atorvastatin Calcium (Lipitor -) 20 mg PO HS [facility] Last Admin: 12/06/16 22:40 Dose: 20 mg Bacitracin (Bacitracin -) 1 applic TP DAILY [facility] Last Admin: 12/07/16 10:25 Dose: 1 applic Diltiazem HCl (Cardizem Cd -) 120 mg PO DAILY [facility] Last Admin: 12/07/16 10:23 Dose: 120 mg Folic Acid (Folic Acid -) 1 mg PO DAILY [facility] Last Admin: 12/07/16 10:23 Dose: 1 mg Gabapentin (Neurontin -) 300 mg PO BID [facility] Last Admin: 12/07/16 10:24 Dose: 300 mg Heparin Sodium (Porcine) (Heparin -) 5,000 unit SQ BID [facility] Last Admin: 12/07/16 10:24 Dose: 5,000 unit Potassium Chloride 40 meq/ (Sodium Chloride) 1,020 mls @ 75 mls/hr IVPB ASDIR [facility] Stop: 12/07/16 14:59 Last Admin: 12/07/16 11:45 Dose: 75 mls/hr Levothyroxine Sodium (Synthroid -) 25 mcg PO DAILY@0700 [facility] Last Admin: 12/07/16 06:02 Dose: 25 mcg Montelukast Sodium (Singulair -) 10 mg PO [facility] Last Admin: 12/06/16 22:40 Dose: 10 mg Oxycodone HCl (Roxicodone -) 10 mg PO Q6H PRN Last Admin: 12/06/16 22:42 Dose: 10 mg Potassium Chloride (Potassium Chloride Oral Liquid) 40 meq PO DAILY [facility] Last Admin: 12/07/16 11:44 Dose: 40 meq Potassium Phos/Sodium Phos (Phos-Nak Packet -) 1 packet PO TID [facility] Stop: 12/09/16 06:01 - Objective Vital Signs: Vital Signs Temperature 97.2 F L 12/07/16 02:00 Pulse Rate 60 12/07/16 02:00 Respiratory Rate 20 12/07/16 02:00 Blood Pressure 103/52 12/07/16 02:00 O2 Sat by Pulse Oximetry (%) 95 12/06/16 13:00 Constitutional: Yes: No Distress Eyes: Yes: Conjunctiva Clear Cardiovascular: Yes: Regular Rate and Rhythm, S1, S2 Respiratory: Yes: CTA Bilaterally Gastrointestinal: Yes: Normal Bowel Sounds, Soft. No: Tenderness Extremities: Yes: Other (+ chronic venous stasis dermatitis) Edema: LLE: Trace, RLE: Trace Labs: CBC, BMP 12/07/16 06:30 12/07/16 06:30 INR, PTT INR 1.19 (0.82-1.09) H 12/05/16 21:49 Assessment/Plan + BC ? significance Leukocytosis-resolved Azotemia Repeat BC x2 Pending c/s, empiric vancomycin
[2016-12-07] MEDS ORDERED: VANCOMYCIN 1 GRAM (PRE-DOCKED) 250 ML IVPB ONE (14:00)
[2016-12-07] MEDS: NAPH,MB-DB/K PH,MBDB POWDER PACKET PO SCH ×2 (14:20→21:33)
[2016-12-07] MEDS: oxyCODONE HCL 5 MG TABLET PO PRN ×2 (15:00→21:32)
[2016-12-07 15:47] LABS: CALCIUM 9.5 mg/dL (8.5-10.1); COCKROFT - GAULT 43.5965; CREATININE 1.4 mg/dL (0.55-1.02)
--- NOTE | 2016-12-07 18:18 | CONSULT ---
Consult - text type - Consultation Consultation Note: NEUROLOGY CONSULTATION is greatly appreciated: This 80 yo RH woman lives one. She claims her son helps out. PMH sig for HTN, Hypothyroidism, Chol, COPD, and chronic back and leg pains. s/ p R hip ORIF. Walks with walker. Maintained on L-thyroxin, diltiazem, atorvastatin, lasix, singulair, alprazolam (1 mg QID), gabapentin (300 mg TID) and oxycodone. Now admitted after few days of increasing weakness in her legs culminating in a fall without LOC. In ER WBC= 13 K. K= 2.2 mg%. Blood cultures x 2 grew Gram + cocci. Now on Vancomicin. CT of head (reviewed): Moderately severe, diffuse atrophy with diffuse periventricular microvascular changes. 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 JONO: No evidence of external head trauma. No bruits. Atrophic changes both shins. Unkempt. NEURO: Awake, alert, Confused. [facility] in [place]. Not [facility]. Cannot recall month or year. Obama. Recalls 0 of 3 at 3 mins. + Glabella, snout. Fluent speech CN: II-XII: Normal Motor: Rigid tone. Minimal cogwheeling on Right. No drift. Normal strength. Reduced KJ's. Normal AJ's. Plantars downgoing. Coord: No FTN dystaxia Sensory: Reduced vibration in feet. Gait: Stands with assistance. Frozen. Spontaneous retropulsion. IMP: Moderately severe, B/L, cerebral dysfunction. OMS, Chronic features. Alzheimers disease +/- Microvascular dementia. Lumbosacral spinal stenosis. Mild extrapyramidal features on the right. All of the above will result in a chronic gait dysfunction and will worsen with toxic- metabolic encephalopathy due to sepsis. SUGGEST: Check B12, TSH, PRP. Continue antibiotics and hydration. Mobilize OOB to chair. PT for gait assessment and Rx with walker. Taper and D/C alprazolam and oxycodine- both will increase risk of falls in the elderly. Begin donepezil 5 mg q AM after breakfast. Neuro f/u as outpatient. support services specialist- patient should not go home alone without significant supervision by [employer]IST or family. Thank you very much, Shankar De Leon MD
[2016-12-07] MEDS: ATORVASTATIN CA 20 MG TABLET (FP) PO SCH (21:32)
[2016-12-07] MEDS: MONTELUKAST NA 10 MG TABLET PO SCH (21:32)
[2016-12-08] MEDS: NAPH,MB-DB/K PH,MBDB POWDER PACKET PO SCH ×3 (06:19→22:24)
[2016-12-08] MEDS: LEVOTHYROXINE NA 25 MCG TABLET (FP) PO SCH (06:19)
--- NOTE | 2016-12-08 08:04 | PN ---
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, Physician Chief Complaint: IN [facility] - Current Medication List Current Medications: Active Medications Acetaminophen (Tylenol -) 325 mg PO Q6H PRN Last Admin: 12/06/16 22:40 Dose: 325 mg Alprazolam (Xanax -) 0.5 mg PO Q6H PRN Last Admin: 12/06/16 22:40 Dose: 0.5 mg Atorvastatin Calcium (Lipitor -) 20 mg PO [facility] Last Admin: 12/07/16 21:32 Dose: 20 mg Bacitracin (Bacitracin -) 1 applic TP DAILY [facility] Last Admin: 12/07/16 10:25 Dose: 1 applic Diltiazem HCl (Cardizem Cd -) 120 mg PO DAILY [facility] Last Admin: 12/07/16 10:23 Dose: 120 mg Donepezil HCl (Aricept -) 5 mg PO DAILY [facility] Folic Acid (Folic Acid -) 1 mg PO DAILY [facility] Last Admin: 12/07/16 10:23 Dose: 1 mg Gabapentin (Neurontin -) 300 mg PO BID [facility] Last Admin: 12/07/16 21:32 Dose: 300 mg Heparin Sodium (Porcine) (Heparin -) 5,000 unit SQ BID [facility] Last Admin: 12/07/16 21:32 Dose: 5,000 unit Levothyroxine Sodium (Synthroid -) 25 mcg PO DAILY@0700 [facility] Last Admin: 12/08/16 06:19 Dose: 25 mcg Montelukast Sodium (Singulair -) 10 mg PO [facility] Last Admin: 12/07/16 21:32 Dose: 10 mg Oxycodone HCl (Roxicodone -) 10 mg PO Q6H PRN Last Admin: 12/07/16 21:32 Dose: 10 mg Potassium Chloride (Potassium Chloride Oral Liquid) 40 meq PO DAILY [facility] Last Admin: 12/07/16 11:44 Dose: 40 meq Potassium Phos/Sodium Phos (Phos-Nak Packet -) 1 packet PO TID [facility] Stop: 12/09/16 06:01 Last Admin: 12/08/16 06:19 Dose: 1 packet - Objective Vital Signs: Vital Signs Temperature 98.1 F 12/08/16 06:00 Pulse Rate 73 12/08/16 06:00 Respiratory Rate 18 12/08/16 06:00 Blood Pressure 112/54 12/08/16 06:00 O2 Sat by Pulse Oximetry (%) 94 L 12/07/16 21:00 Constitutional: Yes: Calm Neck: Yes: WNL Cardiovascular: Yes: WNL Respiratory: Yes: WNL Gastrointestinal: Yes: WNL Edema: No Labs: CBC, BMP 12/07/16 06:30 INR, PTT INR 1.19 (0.82-1.09) H 12/05/16 21:49 Problem List - Problems (1) Leukocytosis Code(s): D72.829 - ELEVATED WHITE BLOOD CELL COUNT, UNSPECIFIED (2) Acute kidney injury Code(s): N17.9 - ACUTE KIDNEY FAILURE, UNSPECIFIED (3) Fall in elderly patient Code(s): R29.6 - REPEATED FALLS (4) Hypothyroid Code(s): E03.9 - HYPOTHYROIDISM, UNSPECIFIED (5) COPD (chronic obstructive pulmonary disease) Code(s): J44.9 - CHRONIC OBSTRUCTIVE PULMONARY DISEASE, UNSPECIFIED (6) HTN (hypertension) Code(s): I10 - ESSENTIAL (PRIMARY) HYPERTENSION Assessment/Plan (1) Fall in elderly patient Assessment/Plan: PT eval snf placment PMR Code(s): R29.6 - REPEATED FALLS (2) Acute kidney injury Assessment/Plan: iv hydration improved -> f/u renal eval Code(s): N17.9 - ACUTE KIDNEY FAILURE, UNSPECIFIED (3) Hypokalemia Assessment/Plan: renal on board improving Code(s): E87.6 - HYPOKALEMIA (4) HLD (hyperlipidemia) Assessment/Plan: lipid panel statin Code(s): E78.5 - HYPERLIPIDEMIA, UNSPECIFIED (5) HTN (hypertension) Assessment/Plan: BP is ok echo noted -> defer to cardio Code(s): I10 - ESSENTIAL (PRIMARY) HYPERTENSION (6) LBP (low back pain) Assessment/Plan: pain managmeent with dr mercy benson Code(s): M54.5 - LOW BACK PAIN Qualifiers: Chronicity: chronic (7) Hypothyroid Assessment/Plan: synthroid check tsh -> wnl Code(s): E03.9 - HYPOTHYROIDISM, UNSPECIFIED (8) Anxiety Assessment/Plan: alprazolam Code(s): F41.9 - ANXIETY DISORDER, UNSPECIFIED (9) Leukocytosis Code(s): D72.829 - ELEVATED WHITE BLOOD CELL COUNT, UNSPECIFIED bcx +braulio being monitored off abx id on case wbc now normal [employer] [facility]
[2016-12-08 08:08] LABS: COCKROFT - GAULT 55.4965; CREATININE 1.1 mg/dL (0.55-1.02)
[2016-12-08 08:17] LABS: THYROID STIMULATING HORMONE 1.7 uIU/ml (0.358-3.74)
[2016-12-08] MEDS: FOLIC ACID 1 MG TABLET (FP) PO SCH (09:37)
[2016-12-08] MEDS: GABAPENTIN 300 MG CAPSULE (FP) PO SCH ×2 (09:37→22:24)
[2016-12-08] MEDS: DONEPEZIL HCL 5 MG TABLET (FP) PO SCH (09:37)
[2016-12-08] MEDS: HEPARIN NA (PORCINE) 5,000 UNITS/ML 1ML VIAL SQ SCH ×2 (09:38→22:25)
[2016-12-08] MEDS: BACITRACIN 30 GM TUBE TOPICAL OINTMENT TP SCH ×2 (09:47→10:32)
[2016-12-08] MEDS: POTASSIUM CHLORIDE ORAL LIQUID 20 MEQ/15 ML PO SCH (10:43)
--- NOTE | 2016-12-08 11:35 | PN ---
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 (short form) - Note 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: Renal Follow up for STEVEN/Hypokalemia Pt seen and examined at the bedside feel better good urine output Vital Signs Temperature 98.1 F 12/08/16 06:00 Pulse Rate 73 12/08/16 06:00 Respiratory Rate 18 12/08/16 06:00 Blood Pressure 112/54 12/08/16 06:00 O2 Sat by Pulse Oximetry (%) 94 L 12/07/16 21:00 Intake & Output 12/05/16 12/06/16 12/07/16 12/08/16 23:59 23:59 23:59 23:59 Intake Total 300 2004 1020 Balance 300 2004 1020 Weight 200 lb 190 lb Gen: NAD, awake and alert CVS: RRR, No M/R Lungs: + congestion at lung bases Abd: soft NT/ND Ext: Trace edema in LE, no clubbing or cyanosis CBC, BMP 12/07/16 06:30 12/08/16 06:15 Current Medications Acetaminophen (Tylenol -) 325 mg PO Q6H PRN Last Admin: 12/06/16 22:40 Dose: 325 mg Alprazolam (Xanax -) 0.5 mg PO Q6H PRN Last Admin: 12/06/16 22:40 Dose: 0.5 mg Atorvastatin Calcium (Lipitor -) 20 mg PO HS [facility] Last Admin: 12/07/16 21:32 Dose: 20 mg Bacitracin (Bacitracin -) 1 applic TP DAILY [facility] Last Admin: 12/08/16 09:47 Dose: 1 applic Diltiazem HCl (Cardizem Cd -) 120 mg PO DAILY [facility] Last Admin: 12/08/16 09:38 Dose: 120 mg Donepezil HCl (Aricept -) 5 mg PO DAILY [facility] Last Admin: 12/08/16 09:37 Dose: 5 mg Folic Acid (Folic Acid -) 1 mg PO DAILY [facility] Last Admin: 12/08/16 09:37 Dose: 1 mg Gabapentin (Neurontin -) 300 mg PO BID [facility] Last Admin: 12/08/16 09:37 Dose: 300 mg Heparin Sodium (Porcine) (Heparin -) 5,000 unit SQ BID [facility] Last Admin: 12/08/16 09:38 Dose: 5,000 unit Levothyroxine Sodium (Synthroid -) 25 mcg PO DAILY@0700 [facility] Last Admin: 12/08/16 06:19 Dose: 25 mcg Montelukast Sodium (Singulair -) 10 mg PO HS [facility] Last Admin: 12/07/16 21:32 Dose: 10 mg Oxycodone HCl (Roxicodone -) 10 mg PO Q6H PRN Last Admin: 12/07/16 21:32 Dose: 10 mg Potassium Chloride (Potassium Chloride Oral Liquid) 40 meq PO DAILY [facility] Last Admin: 12/07/16 11:44 Dose: 40 meq Potassium Phos/Sodium Phos (Phos-Nak Packet -) 1 packet PO TID [facility] Stop: 12/09/16 06:01 Last Admin: 12/08/16 06:19 Dose: 1 packet A/P 80 year old woman with PMhx of Hypertension, Hypothyrodism, COPD, Osteoarthritis who presented s/p fall at home with STEVEN with BUN/Cr of 52/2. #Acute Kidney Injruy likely due to intravascular volume depletion FeUrea consistent with pre-renal injury from volume depletion renal function improved d/c IVF Trend BUN/cr #Near Syncope/Fall Cardiology following Fall precautions #Hypokalemia with normal serum Mg likey due to diuretics (pt was not taking KCL supplementation) continue oral daily KCL for now trend K and Mg #Hypertension BP is at goal Continue Cardizem #High Serum Bicarb (Metabolic alkalosis vs. Metabolic compensation for Respiratory acidosis) ABG showed metabolic alkalosis likely from volume contraction #Hypoxia on O2 Continue supplemental O2, work up as per primary Thank you Cong Rosa DO
[2016-12-08] MEDS: oxyCODONE HCL 5 MG TABLET PO PRN (15:05)
[2016-12-08] MEDS: ALPRAZolam 0.25 MG TABLET PO PRN ×2 (15:42→22:25)
[2016-12-08] MEDS: MONTELUKAST NA 10 MG TABLET PO SCH (22:24)
[2016-12-08] MEDS: ATORVASTATIN CA 20 MG TABLET (FP) PO SCH (22:24)
[2016-12-09] MEDS: LEVOTHYROXINE NA 25 MCG TABLET (FP) PO SCH (06:21)
[2016-12-09] MEDS: NAPH,MB-DB/K PH,MBDB POWDER PACKET PO SCH (06:21)
[2016-12-09 07:16] LABS: BASOPHIL 0.9 % (0-2.0); MCH 31.9 pg (25.7-33.7); MCHC 33.6 g/dl (32.0-36.0); MEAN CELL VOLUME 95.1 fl (80-96); MEAN PLT VOLUME 8.8 fl (7.5-11.1); NEUTROPHILS 68.6 % (42.8-82.8); PLATELET COUNT 253 K/MM3 (134-434); WHITE BLOOD COUNT 9.4 K/mm3 (4.0-10.0)
[2016-12-09 08:06] LABS: ALBUMIN 3.1 g/dl (3.4-5.0); BILIRUBIN,TOTAL 0.7 mg/dL (0.2-1.0); CALCIUM 9.2 mg/dL (8.5-10.1)
[2016-12-09] MEDS: DONEPEZIL HCL 5 MG TABLET (FP) PO SCH (09:02)
[2016-12-09] MEDS: GABAPENTIN 300 MG CAPSULE (FP) PO SCH (09:02)
[2016-12-09] MEDS: POTASSIUM CHLORIDE ORAL LIQUID 20 MEQ/15 ML PO SCH (09:03)
[2016-12-09] MEDS: FOLIC ACID 1 MG TABLET (FP) PO SCH (09:03)
[2016-12-09] MEDS: HEPARIN NA (PORCINE) 5,000 UNITS/ML 1ML VIAL SQ SCH (09:04)
[2016-12-09] MEDS: BACITRACIN 30 GM TUBE TOPICAL OINTMENT TP SCH (09:06)
--- NOTE | 2016-12-09 11:44 | PN ---
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 (short form) - Note 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: Renal Follow up for STEVEN/Hypokalemia Pt seen and examined at the bedside no acute complaints no sob or chest pain no fever or chills good urine output Vital Signs Temperature 99 F 12/09/16 06:23 Pulse Rate 75 12/09/16 06:23 Respiratory Rate 16 12/09/16 06:23 Blood Pressure 107/67 12/09/16 06:23 O2 Sat by Pulse Oximetry (%) 87 L 12/09/16 09:00 Intake & Output 12/06/16 12/07/16 12/08/16 12/09/16 23:59 23:59 23:59 23:59 Intake Total 300 2004 1170 200 Balance 300 2004 1170 200 Weight 190 lb Gen: NAD, awake and alert CVS: RRR, No M/R Lungs: + congestion at lung bases Abd: soft NT/ND Ext: Trace edema in LE, no clubbing or cyanosis CBC, BMP 12/09/16 05:40 12/09/16 05:40 Laboratory Tests 12/09/16 05:40 Calcium 9.2 Albumin 3.1 L Current Medications Acetaminophen (Tylenol -) 325 mg PO Q6H PRN Last Admin: 12/06/16 22:40 Dose: 325 mg Alprazolam (Xanax -) 0.5 mg PO Q6H PRN Last Admin: 12/08/16 22:25 Dose: 0.5 mg Atorvastatin Calcium (Lipitor -) 20 mg PO HS [facility] Last Admin: 12/08/16 22:24 Dose: 20 mg Bacitracin (Bacitracin -) 1 applic TP DAILY [facility] Last Admin: 12/09/16 09:06 Dose: 1 applic Diltiazem HCl (Cardizem Cd -) 120 mg PO DAILY [facility] Last Admin: 12/09/16 09:03 Dose: 120 mg Donepezil HCl (Aricept -) 5 mg PO DAILY [facility] Last Admin: 12/09/16 09:02 Dose: 5 mg Folic Acid (Folic Acid -) 1 mg PO DAILY [facility] Last Admin: 12/09/16 09:03 Dose: 1 mg Gabapentin (Neurontin -) 300 mg PO BID [facility] Last Admin: 12/09/16 09:02 Dose: 300 mg Heparin Sodium (Porcine) (Heparin -) 5,000 unit SQ BID [facility] Last Admin: 12/09/16 09:04 Dose: 5,000 unit Levothyroxine Sodium (Synthroid -) 25 mcg PO DAILY@0700 [facility] Last Admin: 12/09/16 06:21 Dose: 25 mcg Montelukast Sodium (Singulair -) 10 mg PO HS [facility] Last Admin: 12/08/16 22:24 Dose: 10 mg Oxycodone HCl (Roxicodone -) 10 mg PO Q6H PRN Last Admin: 12/08/16 15:05 Dose: 10 mg Potassium Chloride (Potassium Chloride Oral Liquid) 40 meq PO DAILY [facility] Last Admin: 12/09/16 09:03 Dose: 40 meq A/P 80 year old woman with PMhx of Hypertension, Hypothyrodism, COPD, Osteoarthritis who presented s/p fall at home with STEVEN with BUN/Cr of 52/2. #Acute Kidney Injury secondary to intravascular volume depletion Renal function now improved to baseline off diuretics, would continue to hold for now. Can restart if pt develops LE edema. will need monitoring of renal function as outaptient #Hypokalemia with normal serum Mg likey due to diuretics (pt was not taking KCL supplementation) now K WNL #Hypertension BP is at goal Continue Cardizem #High Serum Bicarb (Metabolic alkalosis vs. Metabolic compensation for Respiratory acidosis) ABG showed metabolic alkalosis likely from volume contraction #Hypoxia on O2 Continue supplemental O2, work up as per primary Thank you Cong Rosa DO
--- NOTE | 2016-12-09 12:53 | DS ---
Physical Examination Vital Signs: Vital Signs Temperature 98.3 F 12/09/16 10:00 Pulse Rate 76 12/09/16 10:00 Respiratory Rate 18 12/09/16 10:00 Blood Pressure 121/64 12/09/16 10:00 O2 Sat by Pulse Oximetry (%) 87 L 12/09/16 09:00 Constitutional: Yes: Calm Cardiovascular: Yes: Regular Rate and Rhythm, S1, S2 Respiratory: Yes: CTA Bilaterally Gastrointestinal: Yes: Soft Edema: No Neurological: Yes: Alert, Oriented Labs: CBC, BMP 12/09/16 05:40 12/09/16 05:40 Discharge Summary Reason For Visit: LOW BACK PAIN/PRE SYNCOPE/HYPOKALEMIA Current Active Problems Acute kidney injury (Acute) Bacteremia (Acute) Fall in elderly patient (Acute) Hypokalemia (Acute) Hypothyroid (Acute) Leukocytosis (Acute) Near syncope (Acute) Hospital Course: - Primary Care Physician PCP: Brenda Tan I - Admission Chief Complaint: fall History of Present Illness: 1 year old female s/p fall "legs feeling shaky for 2 days." while using a walker. patient hit head and c/o pain to lumbarsacral area. denies hip pain, headache, neck, fever, cough, chest pain, urinary complaints. 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 Cardiovascular: Yes: HTN, Hyperlipdemia Pulmonary: Yes: COPD Gastrointestinal: Yes: GERD Musculoskeletal: Yes: Chronic low back pain Endocrine: Yes: Hypothyroidism - Past Surgical History Past Surgical History: Yes: Cholecystectomy Additional Past Surgical History: righ hip pinning - Smoking History Smoking history: Former smoker Have you smoked in the past 12 months: Yes Aproximately how many cigarettes per day: 20 If you are a former smoker, when did you quit?: 2016 - Alcohol/Substance Use Hx Alcohol Use: No found to be severly hypokalemic was not taking her KCL supplelement bc it was large pill to swallow and was taking her duiretic thus her renal function elevated and K low- got ivf and extra K and now labs improved 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, multiple falls at home lasix held as edema is better if leg edema starts then restart lasix 20mg daily and monitor lytes and renal fucntion seen by neurology donezapil started xanax once daily as needed pain meds reduced to tid as needed Condition: Improved - Instructions Diet, Activity, Other Instructions: bmp twice a week restart lasix 20mg daily if leg edema develops 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, lives alone ,mulitple falls at home Referrals: Lanie Teresa MD [Primary Care Provider] - [facility] - Home Medications Comprehensive Discharge Medication List: Ambulatory Orders Atorvastatin Calcium 20 mg PO HS 11/23/15 Folic Acid 1 mg PO DAILY 11/23/15 Furosemide [Lasix -] 40 mg PO DAILY 11/23/15 Gabapentin 300 mg PO BID 11/23/15 Montelukast Na [Singulair -] 10 mg PO HS 11/23/15 Diltiazem Cd [Cardizem Cd -] 120 mg PO DAILY #30 cap.cd.24h 11/27/15 Alprazolam 1 mg PO QID #120 tablet MDD 4 03/01/16 Oxycodone HCl/Acetaminophen [Oxycodone-Acetaminophen 10-325] 1 each PO QID #120 tablet MDD 4 03/01/16 Bacitracin - [Bacitracin Topical Ointment -] 1 applic TP DAILY #1 tube 06/20/16 Cephalexin Monohydrate [Keflex -] 500 mg PO BID #14 capsule 06/20/16 Levothyroxine [Synthroid -] 25 mcg PO DAILY 12/05/16 Potassium Chloride 10 meq PO DAILY 12/05/16
--- NOTE | 2016-12-09 12:54 | PN ---
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 (short form) - Note 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: SPOKE TO SON all questions answered awaitng bed [facility] Problem List - Problems (1) Fall in elderly patient Code(s): R29.6 - REPEATED FALLS (2) Acute kidney injury Code(s): N17.9 - ACUTE KIDNEY FAILURE, UNSPECIFIED (3) Hypokalemia Code(s): E87.6 - HYPOKALEMIA (4) HLD (hyperlipidemia) Code(s): E78.5 - HYPERLIPIDEMIA, UNSPECIFIED (5) HTN (hypertension) Code(s): I10 - ESSENTIAL (PRIMARY) HYPERTENSION (6) LBP (low back pain) Code(s): M54.5 - LOW BACK PAIN Qualifiers: Chronicity: chronic (7) Hypothyroid Code(s): E03.9 - HYPOTHYROIDISM, UNSPECIFIED (8) Anxiety Code(s): F41.9 - ANXIETY DISORDER, UNSPECIFIED
[2016-12-09] MEDS ORDERED: oxyCODONE HCL 5 MG TABLET PO PRN (12:55)
[2016-12-09] MEDS ORDERED: ALPRAZolam 0.25 MG TABLET PO PRN (12:55)
[2016-12-09 15:02] VITALS: BP 134/61; PULSE 83; TEMP 98.4
== END 2016-12-09 17:30 | DRG 683 ==
LOC: JER 21:05 → JERBED 23:40 → UNDOADMIN 23:54 → JERBED 23:54 → J4S 12-06 13:06
PROVIDERS: ADMIT Family Medicine; ATTEND Family Medicine
DX: N17.9 Acute kidney failure, unspecified (principal); R78.81 Bacteremia; E87.3 Alkalosis; E87.6 Hypokalemia; R55 Syncope and collapse; E03.9 Hypothyroidism, unspecified; D72.829 Elevated white blood cell count, unspecified; I10 Essential (primary) hypertension; E11.9 Type 2 diabetes mellitus without complications; K21.9 Gastro-esophageal reflux disease without esophagitis; Z87.891 Personal history of nicotine dependence; J44.9 Chronic obstructive pulmonary disease, unspecified; F41.9 Anxiety disorder, unspecified; M54.5 Low back pain; M48.07 Spinal stenosis, lumbosacral region; M19.90 Unspecified osteoarthritis, unspecified site; R29.6 Repeated falls; R09.02 Hypoxemia
CPT/HCPCS: 36415; 36600; 70450-TC; 71010-TC; 72100-TC; 72125-TC; 76775-TC; 80048; 80053; 81003; 81015; 82550; 82570; 82607; 82803; 83735; 84100; 84156; 84300; 84443; 84484; 84540; 85025; 85610; 86593; 87040; 87086; 87186; 93005; 93010; 93306-TC; 97116-GP; 97161-GP; 99285-25; J1644

== ENCOUNTER 2018-08-17 10:43 | Inpatient (IN) | payer OTHER, BC ==
[2018-08-17 12:28] LABS: BASO % 1.3 % (0-2.0); EOS % 3.6 % (0-4.5); HEMATOCRIT 37.1 % (32.4-45.2); HEMOGLOBIN 11.5 GM/dL (10.7-15.3); LYMPH % 8.8 % (8-40); MCH 28.8 pg (25.7-33.7); MEAN CELL VOLUME 92.9 fl (80-96); MEAN PLT VOLUME 7.8 fl (7.5-11.1); MONO % 6.8 % (3.8-10.2); NEUT % 79.5 % (42.8-82.8); PLATELET COUNT 329 K/MM3 (134-434); RDW 16.9 % (11.6-15.6)
[2018-08-17 12:39] LABS: INR 1.13 (0.83-1.09); PROTHROMBIN TIME (PATIENT) 13.4 SEC (9.7-13.0)
[2018-08-17 12:42] LABS: ACTIVATED PTT 27.5 SECONDS (25.2-36.5)
[2018-08-17 12:56] LABS: ALBUMIN 2.6 g/dl (3.4-5.0); ALK PHOS 110 U/L (45-117); ANION GAP 6 MMOL/L (8-16); BILIRUBIN,TOTAL 0.4 mg/dL (0.2-1); BLOOD UREA NITROGEN 16 mg/dL (7-18); CALCIUM 8.6 mg/dL (8.5-10.1); CHLORIDE 101 mmol/L (98-107); CO2 33 mmol/L (21-32); CREATININE 1.3 mg/dL (0.55-1.3); GLUCOSE,RANDOM 85 mg/dL (74-106); POTASSIUM 3.9 mmol/L (3.5-5.1); SGOT/AST 12 U/L (15-37); SGPT/ALT 12 U/L (13-61); SODIUM 139 mmol/L (136-145); TOT PROT 7.3 g/dl (6.4-8.2)
[2018-08-17] MEDS ORDERED: VANCOMYCIN 1 GRAM (PRE-DOCKED) 1,000 MG/250 ML BAG IVPB ONE ×2 (13:29→13:54)
[2018-08-17] MEDS ORDERED: AZTREONAM 2 GM in DEXTROSE 5%-WATER 100 ML IVPB ONE (13:29)
--- NOTE | 2018-08-17 14:01 | PDOC ---
History of Present Illness - General History Source: Patient, Family Exam Limitations: No Limitations <Adiel Segundo - Last Filed: 08/17/18 14:25> - History of Present Illness Initial Comments: 08/17/18 16:19 The patient is an 82 year old female with a past medical history of TIA, chronic LE wounds, HTN, and HLD who presents to the emergency department for evaluation of bilateral lower extremity wounds and cellulitis. Patient reports bilateral lower extremity wound with redness. Patient reports she was sent here by her speech and language specialist for IV antibiotics and ID consultation after her wound was swabbed positive for MRSA. She reports she was subsequently given oral antibiotics which caused a yeast infection to develop. Allergies: Amoxicillin, penicillins, silver sulfadiazine, escitalopram, levofloxacin Social History: No reported substance use. PCP: Dr. Teresa <Mohan Back - Last Filed: 08/17/18 16:25> - General Chief Complaint: Wound Stated Complaint: FOOT INFECTION Time Seen by Provider: 08/17/18 11:43 Past History - Past Medical History Anemia: No Asthma: No Cancer: No Cardiac Disorders: No CVA: No COPD: Yes CHF: No Dementia: No Diabetes: No GI Disorders: No Disorders: Yes (uti) HTN: Yes Hypercholesterolemia: Yes Liver Disease: No Seizures: No Thyroid Disease: No - Surgical History Abdominal Surgery: No Cardiac Surgery: No Cholecystectomy: Yes Lung Surgery: No Neurologic Surgery: No - Immunization History Td Vaccination: Yes TDAP Vaccination: Yes Immunization Up to Date: Yes - Suicide/Smoking/Psychosocial Hx Smoking Status: Yes Smoking History: Never smoked Years of Tobacco Use: 0 Have you smoked in the past 12 months: No Number of Cigarettes Smoked Daily: 20 If you are a former smoker, when did you quit?: 2016 Cigars Per Day: 0 Information on smoking cessation initiated: No 'Breaking Loose' booklet given: 11/23/15 Hx Alcohol Use: No Drug/Substance Use Hx: No Substance Use Type: None Hx Substance Use Treatment: No <Adiel Segundo - Last Filed: 08/17/18 14:25> <Mohan Back - Last Filed: 08/17/18 16:25> - Past Medical History Allergies/Adverse Reactions: Allergies Allergy/AdvReac Type Severity Reaction Status Date / Time amoxicillin [Amoxicillin] Allergy Verified 03/16/18 16:01 Penicillins Allergy Verified 03/16/18 16:01 silver sulfadiazine Allergy Verified 07/03/18 13:55 [From Silvadene] escitalopram AdvReac Intermediate Verified 03/16/18 16:01 levofloxacin [Levofloxacin] AdvReac Intermediate Verified 03/16/18 16:01 Home Medications: Ambulatory Orders Atorvastatin Calcium 20 mg PO HS 11/23/15 Folic Acid 1 mg PO DAILY 11/23/15 Gabapentin 300 mg PO BID 11/23/15 Montelukast Na [Singulair -] 10 mg PO HS 11/23/15 Diltiazem Cd [Cardizem Cd -] 120 mg PO DAILY #30 cap.cd.24h 11/27/15 Bacitracin - [Bacitracin Topical Ointment -] 1 applic TP DAILY #1 tube 06/20/16 Alprazolam [Xanax] 1 mg PO DAILY PRN #7 tablet MDD 1 12/09/16 Donepezil HCl [Aricept -] 5 mg PO DAILY #30 tablet 12/09/16 Oxycodone HCl/Acetaminophen [Oxycodone-Acetaminophen 5-325] 1 each PO TID PRN # 10 tablet MDD 3 12/09/16 Potassium Chloride [Potassium Chloride Oral Liquid] 20 meq PO DAILY #60 ml 12/09 Nystatin Powder [Nystop Powder -] 60 gm TP BID #1 powder 08/10/18 Review of Systems - Review of Systems Able to Perform ROS?: Yes Comments:: GENERAL/CONSTITUTIONAL: No fever or chills. No weakness. HEAD, EYES, EARS, NOSE AND THROAT: No change in vision. No ear pain or discharge. No sore throat. CARDIOVASCULAR: No chest pain or shortness of breath. RESPIRATORY: No cough, wheezing, or hemoptysis. GASTROINTESTINAL: No nausea, vomiting, diarrhea or constipation. GENITOURINARY: No dysuria, frequency, or change in urination. MUSCULOSKELETAL: (+)Lower extremity pain with redness. SKIN: No rash NEUROLOGIC: No headache, vertigo, loss of consciousness, or change in strength/ sensation. ENDOCRINE: No increased thirst. No abnormal weight change. HEMATOLOGIC/LYMPHATIC: No anemia, easy bleeding, or history of blood clots. ALLERGIC/IMMUNOLOGIC: No hives or skin allergy. <Mohan Back - Last Filed: 08/17/18 16:25> *Physical Exam - Vital Signs Last Vital Signs Temp Pulse Resp BP Pulse Ox 98.5 F 82 16 86/54 L 95 08/17/18 11:06 08/17/18 11:06 08/17/18 11:06 08/17/18 11:06 08/17/18 11:06 <Adiel Segundo - Last Filed: 08/17/18 14:25> - Vital Signs Last Vital Signs Temp Pulse Resp BP Pulse Ox 98.5 F 82 16 86/54 L 95 08/17/18 11:06 08/17/18 11:06 08/17/18 11:06 08/17/18 11:06 08/17/18 11:06 - Physical Exam Comments: 08/17/18 16:21 GENERAL: Awake, alert, and fully oriented, in no acute distress HEAD: No signs of trauma EYES: PERRLA, EOMI, sclera anicteric, conjunctiva clear ENT: Auricles normal inspection, hearing grossly normal, nares patent. NECK: Normal ROM, supple, no lymphadenopathy, JVD, or masses LUNGS: Breath sounds equal, clear to auscultation bilaterally. No wheezes, and no crackles HEART: Regular rate and rhythm, normal S1 and S2, no murmurs, rubs or gallops ABDOMEN: Soft, nontender, normoactive bowel sounds. No guarding, no rebound. No masses EXTREMITIES: (+)Weeping lower extremities. (+)Desquamation and diffuse erythema along lower extremities from midshine to feet bilaterally. +DP pulses palpable NEUROLOGICAL: Cranial nerves II through XII grossly intact. Normal speech, normal gait SKIN: Warm, Dry, normal turgor, no rashes or lesions noted <Mohan Back - Last Filed: 08/17/18 16:25> Moderate Sedation - Procedure Monitoring Vital Signs: Procedure Monitoring Vital Signs Temperature 98.5 F 08/17/18 11:06 Pulse Rate 82 08/17/18 11:06 Respiratory Rate 16 08/17/18 11:06 Blood Pressure 86/54 L 08/17/18 11:06 O2 Sat by Pulse Oximetry (%) 95 08/17/18 11:06 <Adiel Segundo - Last Filed: 08/17/18 14:25> - Procedure Monitoring Vital Signs: Procedure Monitoring Vital Signs Temperature 98.5 F 08/17/18 11:06 Pulse Rate 82 08/17/18 11:06 Respiratory Rate 16 08/17/18 11:06 Blood Pressure 86/54 L 08/17/18 11:06 O2 Sat by Pulse Oximetry (%) 95 08/17/18 11:06 <Mohan Back - Last Filed: 08/17/18 16:25> Heart Score/ECG Review #1 ECG reviewed & interpreted by me at: 12:00 08/17/18 14:25 NSR 77, low voltage QRS, no std/anna, QTC 416 msec <Adiel Segundo - Last Filed: 08/17/18 14:25> ED Treatment Course - LABORATORY CBC & Chemistry Diagram: 08/17/18 12:04 08/17/18 12:04 - ADDITIONAL ORDERS Additional order review: Laboratory Results 08/17/18 08/17/18 08/17/18 12:04 12:04 12:04 PT with INR INR PTT (Actin FS) Sodium Potassium Chloride Carbon Dioxide Anion Gap BUN Creatinine Creat Clearance w eGFR Random Glucose Lactic Acid 1.3 Calcium Total Bilirubin AST ALT Alkaline Phosphatase Troponin I < 0.02 C-Reactive Protein Cancelled 6.6 H Total Protein Albumin 08/17/18 08/17/18 12:04 12:04 PT with INR 13.40 H INR 1.13 H PTT (Actin FS) 27.5 Sodium 139 Potassium 3.9 Chloride 101 Carbon Dioxide 33 H Anion Gap 6 L BUN 16 Creatinine 1.3 Creat Clearance w eGFR 39.21 Random Glucose 85 Lactic Acid Calcium 8.6 Total Bilirubin 0.4 AST 12 L ALT 12 L Alkaline Phosphatase 110 Troponin I C-Reactive Protein Total Protein 7.3 Albumin 2.6 L 08/17/18 12:04 RBC 4.00 MCV 92.9 MCHC 31.0 L RDW 16.9 H MPV 7.8 D Neutrophils % 79.5 Lymphocytes % 8.8 D Monocytes % 6.8 Eosinophils % 3.6 Basophils % 1.3 - RADIOLOGY Radiology Studies Ordered: Category Date Time Status CHEST X-RAY PORTABLE* [RAD] Stat Radiology 08/17/18 11:43 Taken <Adiel Segundo - Last Filed: 08/17/18 14:25> - LABORATORY CBC & Chemistry Diagram: 08/17/18 12:04 08/17/18 12:04 - ADDITIONAL ORDERS Additional order review: Laboratory Results 08/17/18 08/17/18 08/17/18 12:04 12:04 12:04 PT with INR INR PTT (Actin FS) Sodium Potassium Chloride Carbon Dioxide Anion Gap BUN Creatinine Creat Clearance w eGFR Random Glucose Lactic Acid 1.3 Calcium Total Bilirubin AST ALT Alkaline Phosphatase Troponin I < 0.02 C-Reactive Protein Cancelled 6.6 H Total Protein Albumin 08/17/18 08/17/18 12:04 12:04 PT with INR 13.40 H INR 1.13 H PTT (Actin FS) 27.5 Sodium 139 Potassium 3.9 Chloride 101 Carbon Dioxide 33 H Anion Gap 6 L BUN 16 Creatinine 1.3 Creat Clearance w eGFR 39.21 Random Glucose 85 Lactic Acid Calcium 8.6 Total Bilirubin 0.4 AST 12 L ALT 12 L Alkaline Phosphatase 110 Troponin I C-Reactive Protein Total Protein 7.3 Albumin 2.6 L 08/17/18 12:04 RBC 4.00 MCV 92.9 MCHC 31.0 L RDW 16.9 H MPV 7.8 D Neutrophils % 79.5 Lymphocytes % 8.8 D Monocytes % 6.8 Eosinophils % 3.6 Basophils % 1.3 - Medications Given in the ED: ED Medications Discontinued Medications Generic Name Dose Route Start Last Admin Trade Name Freq PRN Reason Stop Dose Admin Vancomycin HCl 1,000 mg 08/17/18 13:29 08/17/18 13:57 Vancomycin (Pre-Docked) IVPB 08/17/18 13:30 1,000 mg ONCE ONE Administration Protocol <Mohan Back - Last Filed: 08/17/18 16:25> Medical Decision Making - Medical Decision Making 08/17/18 14:01 A portion of this note was documented by scribe services under my direction. I have reviewed the details of the note, within reason, and agree with the documentation with the following case summary and management plan written by me. Patient treated in the ED. Nursing notes are reviewed and incorporated into the medical decision-making. Vital signs reviewed. Peripheral IV access obtained by the nurse, laboratory studies are drawn and sent, reviewed and interpreted by myself. Vital Signs Temp Pulse Resp BP Pulse Ox 98.5 F 82 16 86/54 L 95 08/17/18 11:06 08/17/18 11:06 08/17/18 11:06 08/17/18 11:06 08/17/18 11:06 82-year-old female with Past medical history of TIA, hypertension, hyperlipidemia, COPD, GERD, hypothyroidism presents with bilateral lower extremity cellulitis and infection. The patient has been managing as an outpatient for her wounds. However, they progressively worsened. Patient saw her vascular surgeon, Dr. Medeiros, who directed the patient to the ER for admission for IV antibiotics and infectious disease consultation. Patient denies fevers. I agreed the patient has severe cellulitis. We'll initiate vancomycin and aztreonam. Infectious disease specialist, Dr. Julian, was consulted and he is aware the patient. We'll admit the patient to the hospital. 08/17/18 14:12 CBC, BMP 08/17/18 12:04 08/17/18 12:04 CMP Sodium 139 mmol/L (136-145) 08/17/18 12:04 Potassium 3.9 mmol/L (3.5-5.1) 08/17/18 12:04 Chloride 101 mmol/L (98-107) 08/17/18 12:04 Carbon Dioxide 33 mmol/L (21-32) H 08/17/18 12:04 Anion Gap 6 MMOL/L (8-16) L 08/17/18 12:04 BUN 16 mg/dL (7-18) 08/17/18 12:04 Creatinine 1.3 mg/dL (0.55-1.3) 08/17/18 12:04 Creat Clearance w eGFR 39.21 (>60) 08/17/18 12:04 Random Glucose 85 mg/dL (74-106) 08/17/18 12:04 Lactic Acid 1.3 mmol/L (0.4-2.0) 08/17/18 12:04 Calcium 8.6 mg/dL (8.5-10.1) 08/17/18 12:04 Total Bilirubin 0.4 mg/dL (0.2-1) 08/17/18 12:04 AST 12 U/L (15-37) L 08/17/18 12:04 ALT 12 U/L (13-61) L 08/17/18 12:04 Alkaline Phosphatase 110 U/L (45-117) 08/17/18 12:04 Troponin I < 0.02 ng/ml (0.00-0.05) 08/17/18 12:04 C-Reactive Protein 6.6 MG/DL (0.00-0.3) H 08/17/18 12:04 Total Protein 7.3 g/dl (6.4-8.2) 08/17/18 12:04 Albumin 2.6 g/dl (3.4-5.0) L 08/17/18 12:[address] De Anda. Patient accepted to med/surg admission. Case discussed in detail with admitting physician including history, physical exam and ancillary studies. Admitting physician has assumed care for the patient, will follow all pending diagnostics and will complete the evaluation and treatment. <Adiel Segundo - Last Filed: 08/17/18 14:25> *DC/Admit/Observation/Transfer - Discharge Dispostion Decision to Admit order: Yes <Adiel Segundo - Last Filed: 08/17/18 14:25> - Attestations Scribe Attestion: Documentation prepared by Mohan Back, acting as medical receptionist for Adiel Segundo MD. <Mohan Back - Last Filed: 08/17/18 16:25> Diagnosis at time of Disposition: Cellulitis Qualifiers: Site of cellulitis: extremity Site of cellulitis of extremity: lower extremity Laterality: unspecified laterality Qualified Code(s): L03.119 - Cellulitis of unspecified part of limb - Discharge Dispostion Condition at time of disposition: Stable
--- NOTE | 2018-08-17 14:41 | HP ---
Admitting History and Physical - Primary Care Physician PCP: Lanie Teresa - Admission History of Present Illness: 82-year-old female with Past medical history of TIA, hypertension, hyperlipidemia, COPD, GERD, hypothyroidism presents with bilateral lower extremity cellulitis and infection. The patient has been managing as an outpatient with oral abx for her wounds. However, they progressively worsened. Patient saw her vascular surgeon, Dr. Santizo, who directed the patient to the ER for admission for IV antibiotics and infectious disease consultation. Patient denies fevers. I agreed the patient has severe cellulitis. We'll initiate vancomycin and aztreonam. Infectious disease specialist, Dr. Julian, was consulted and he is aware the patient. We'll admit the patient to the hospital. 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 Cardiovascular: Yes: HTN, Hyperlipdemia Pulmonary: Yes: COPD Gastrointestinal: Yes: GERD Musculoskeletal: Yes: Chronic low back pain Endocrine: Yes: Hypothyroidism - Past Surgical History Past Surgical History: Yes: Cholecystectomy - Smoking History Smoking history: Never smoked Have you smoked in the past 12 months: No Aproximately how many cigarettes per day: 20 If you are a former smoker, when did you quit?: 2016 - Alcohol/Substance Use Hx Alcohol Use: No Home Medications - Allergies Allergies/Adverse Reactions: Allergies Allergy/AdvReac Type Severity Reaction Status Date / Time amoxicillin [Amoxicillin] Allergy Verified 03/16/18 16:01 Penicillins Allergy Verified 03/16/18 16:01 silver sulfadiazine Allergy Verified 07/03/18 13:55 [From Silvadene] escitalopram AdvReac Intermediate Verified 03/16/18 16:01 levofloxacin [Levofloxacin] AdvReac Intermediate Verified 03/16/18 16:01 - Home Medications Home Medications: Ambulatory Orders Atorvastatin Calcium 20 mg PO HS 11/23/15 Folic Acid 1 mg PO DAILY 11/23/15 Gabapentin 300 mg PO BID 11/23/15 Montelukast Na [Singulair -] 10 mg PO HS 11/23/15 Diltiazem Cd [Cardizem Cd -] 120 mg PO DAILY #30 cap.cd.24h 11/27/15 Bacitracin - [Bacitracin Topical Ointment -] 1 applic TP DAILY #1 tube 06/20/16 Alprazolam [Xanax] 1 mg PO DAILY PRN #7 tablet MDD 1 12/09/16 Donepezil HCl [Aricept -] 5 mg PO DAILY #30 tablet 12/09/16 Oxycodone HCl/Acetaminophen [Oxycodone-Acetaminophen 5-325] 1 each PO TID PRN # 10 tablet MDD 3 12/09/16 Potassium Chloride [Potassium Chloride Oral Liquid] 20 meq PO DAILY #60 ml 12/09 Nystatin Powder [Nystop Powder -] 60 gm TP BID #1 powder 08/10/18 Review of Systems - Review of Systems Integumentary: reports: Wound Physical Examination Vital Signs: Vital Signs Temperature 98.5 F 08/17/18 11:06 Pulse Rate 82 08/17/18 11:06 Respiratory Rate 16 08/17/18 11:06 Blood Pressure 86/54 L 08/17/18 11:06 O2 Sat by Pulse Oximetry (%) 95 08/17/18 11:06 Constitutional: Yes: Calm Cardiovascular: Yes: Regular Rate and Rhythm, S1, S2 Respiratory: Yes: CTA Bilaterally Gastrointestinal: Yes: Normal Bowel Sounds, Soft Extremities: Yes: Erythema, Other (left leg erythematous wound with swelling of foot and leg right leg leg erythematous less than left leg) Labs: CBC, BMP 08/17/18 12:04 08/17/18 12:04 Imaging - Results Chest X-ray: Report Reviewed (no active disease) Problem List - Problems (1) Cellulitis Assessment/Plan: elevated wbc ESR and CRP start iv abx per IDwound consult dr santizo dvt ppx blood cultures pending dvt ppx pain control Code(s): L03.90 - CELLULITIS, UNSPECIFIED Qualifiers: Site of cellulitis: extremity Site of cellulitis of extremity: lower extremity Laterality: unspecified laterality Qualified Code(s): L03.119 - Cellulitis of unspecified part of limb (2) Anxiety Assessment/Plan: xanax prn Code(s): F41.9 - ANXIETY DISORDER, UNSPECIFIED (3) HLD (hyperlipidemia) Assessment/Plan: statin Code(s): E78.5 - HYPERLIPIDEMIA, UNSPECIFIED (4) Hypothyroid Assessment/Plan: tsh synthroid Code(s): E03.9 - HYPOTHYROIDISM, UNSPECIFIED (5) HTN (hypertension) Assessment/Plan: hold cardizem given low BP Code(s): I10 - ESSENTIAL (PRIMARY) HYPERTENSION
[2018-08-17] MEDS ORDERED: oxyCODONE HCL 5 MG TABLET PO PRN (14:49)
[2018-08-17] MEDS ORDERED: ALPRAZolam 0.25 MG TABLET PO PRN (14:50)
[2018-08-17] MEDS ORDERED: ACETAMINOPHEN 325 MG TABLET (FP) PO PRN (14:57)
--- NOTE | 2018-08-17 15:27 | PN ---
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 (short form) - Note 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: ID Consult dictated Cellulitis feet bilaterally with "scalded skin" appearance Multiple antibiotic allergies Hx MRSA/ Pseudomonas ? Scabies Empiric vanco/aztreonam/ clinda Contact precautions Elimite
--- NOTE | 2018-08-17 15:41 | EKG ---
Test Reason : Blood Pressure : / mmHG Vent. Rate : 077 BPM Atrial Rate : 077 BPM P-R Int : 168 ms QRS Dur : 088 ms QT Int : 368 ms P-R-T Axes : 046 -22 036 degrees QTc Int : 416 ms NORMAL SINUS RHYTHM LOW VOLTAGE QRS CANNOT RULE OUT ANTERIOR INFARCT , AGE UNDETERMINED ABNORMAL ECG WHEN COMPARED WITH ECG OF 05-DEC-2016 22:25, NO SIGNIFICANT CHANGE WAS FOUND Confirmed by JESE JENNINGS MD ([id number]) on 08/17/2018 3:40:53 PM Referred By: Confirmed By:JESE JENNINGS MD
[2018-08-17] MEDS ORDERED: VANCOMYCIN 1,000 MG in DEXTROSE 5%-WATER - 250 ML IVPB SCH (15:45)
[2018-08-17] MEDS ORDERED: PERMETHRIN 5% TOPICAL CREAM 60 GM TUBE TP ONE (16:30)
--- NOTE | 2018-08-17 17:35 | CONS ---
DATE OF CONSULTATION: DATE OF DICTATION: 08/17/2018 INFECTIOUS DISEASE CONSULTATION HISTORY OF PRESENT ILLNESS: The patient is an 82-year-old female who is evaluated for bilateral lower extremity cellulitis. History was obtained from the patient as well as her son, who is present at the time. On examination, she reports worsening erythema, warmth, and swelling of the lower extremities bilaterally. She had been evaluated by a route sales specialist as well as her primary care physician. She was prescribed an antibiotic, however was unable to give me the name of the antibiotic. In the interim, she had developed a rash involving her back, chest, abdomen, and extremities, which they felt was a fungal rash. She has multiple ANTIBIOTIC ALLERGIES, however was not able to tell me the exact nature of the allergies. She denies any associated fever or chills. She has had purulent drainage from between the toes on the feet bilaterally. PAST MEDICAL HISTORY: Positive for TIA, hyperlipidemia, hypertension, gastroesophageal reflux, COPD, hypothyroidism. PAST SURGICAL HISTORY: Status post cholecystectomy. ALLERGIES: AMOXICILLIN, PENICILLIN, LEVAQUIN, LEXAPRO. Patient states the PENICILLIN allergy occurred many years ago and was unaware of the exact nature of the allergy. SYSTEMS REVIEW: Neurologic: No loss of consciousness, seizure activity, focal weakness. Cardiac: Negative for chest pain or palpitations. Respiratory: Negative for cough or sputum production. Gastrointestinal: Negative vomiting or diarrhea. Genitourinary: Negative for urinary tract infection. LABORATORY DATA: White count 11.0, hematocrit 37.1, platelet count 329, creatinine 1.3. ESR 90, C-reactive protein 6.6. Chest x-ray negative. PHYSICAL EXAMINATION: General: On exam, she is awake and alert. Vital signs: Temperature 98.5, blood pressure 86/54, pulse 82 regular, respirations 18 per minute. HEENT: Sclerae anicteric. Cardiovascular: Heart sounds S1, S2. Lungs: Clear. Abdomen: Obese. Soft, nontender. Extremities: Examination of the lower extremities, there is chronic stasis dermatitis involving both lower extremities bilaterally from below the knees to the feet. There is superimposed erythema and warmth as well as excoriations. There is a "scalded skin" appearance to the distal feet bilaterally, right greater than left, extending from the dorsum of the foot, and involving all the toes. There is purulent drainage noted between and toes. Skin: Examination of the skin, there is encrusted papular rash as well as excoriation involving the back, chest, and abdomen, also involves the hands bilaterally and appears more encrusted. IMPRESSION: 1. Cellulitis feet bilaterally with scalded skin appearance. 2. Multiple antibiotic allergies. 3. History of methicillin-resistant Staphylococcus aureus. 4. Possible scabies. We will empirically cover for possible toxin mediated soft tissue infection with clindamycin 600 mg IV piggyback every 8 hours. Will also treat with vancomycin and Azactam in light of previous wound culture for MRSA and pseudomonas. Local wound care will empirically treat with Elimite and place on contact isolation. Thank you for the kind referral. Case is discussed with patient's son present at the time of the examination. RACHNA GARNER M.D. [id number]
[2018-08-17] MEDS ORDERED: PT OWN MED DRAWER 7, Y5N ONE (20:33)
[2018-08-17] MEDS: CLINDAMYCIN 600MG PREMIX IVPB 600 MG/50 ML BAG IVPB SCH (20:40)
[2018-08-17] MEDS: AZTREONAM 1 GM in DEXTROSE 5%-WATER - 50 ML IVPB SCH (20:41)
[2018-08-17] MEDS ORDERED: ALPRAZolam 0.25 MG TABLET PO ONE (20:58)
--- NOTE | 2018-08-17 21:20 | CONSULT ---
Consult - text type - Consultation Consultation Note: NEUROLOGY CONSULTATION is greatly appreciated: This 82 yo woman with h/o HTN, Chol, Hypothyroidism, PVD and "dementia" is admitted for poorly healing leg wounds. She lives alone with her son "nearby." She claims she is independently ambulatory but has a cane and walker at home. She claims she is independent in ADL's. On: L-thyroxin; Atorvastatin; Folic Acid; Gabapentin 300 mg PO BID; Singulair; Diltiazem; Alprazolam; Donepezil 5 mg; Oxycodone; and Nystatin. Pt notes diffuse rash beginning at home x 1 week but denies any new meds started around that time. Now on Aztreonam, Clindamicin and vancomicin. ESR=90 mm/hr; CRP=6.6 mg%; WBC= 11K JONO: No evidence of external head trauma. No bruits. Cor: Reg. Atrophic skin changes both calves. Flat, punctate, erythematous rash left arm Min contracture left knee NEURO: MS: awake, alert, Ox [facility], Aug (middle) 2016..."no 18." Trump. Recall 2 of 3 at 3 mins. + Glabella. Speech: Fluent CN II-XII: normal Motor: No drift. + Myoclonic jerks. Normal strength. Areflexic in the legs. Downgoing toes. + cogwheeling with reinforcement. Sl reduced STERLING's. Coord: No FTN Dystaxia Sensory: Decreased vibration and touch to the mid-calf. Romberg ++ Gait: Stiff, flexed, frozen and retropulsive. IMP: Mild B/L cerebral Dysfunction (OMS, Chronic) Extrapyramidal (Parkinsonian) features Peripheral Neuropathy ( Myoclonic jerks suggesting Toxic metabolic Encephalopathy. SUGGEST: Continue antibiotics while following levels Check B12, TSH, RPR, glycosylated A1-C CT of head. Trial of L-Dopa when stable Increase donepezil to 10 mg q AM PT for gait with walker. financial services specialist: Patient requires assistance/ supervision at home. Thank you very much, Shankar De Leon MD
[2018-08-17] MEDS: HEPARIN NA (PORCINE) 5,000 UNITS/ML 1ML VIAL SQ SCH (21:39)
[2018-08-17] MEDS: ATORVASTATIN CA 20 MG TABLET (FP) PO SCH (21:39)
[2018-08-17] MEDS: DOCUSATE SODIUM 100 MG CAPSULE (FP) PO SCH (21:39)
[2018-08-17] MEDS ORDERED: GABAPENTIN 300 MG CAPSULE (FP) PO SCH (22:00)
[2018-08-17 23:17] VITALS: BMI 26.6
[2018-08-18] MEDS: CLINDAMYCIN 600MG PREMIX IVPB 600 MG/50 ML BAG IVPB SCH ×3 (02:20→17:34)
[2018-08-18] MEDS: AZTREONAM 1 GM in DEXTROSE 5%-WATER - 50 ML IVPB SCH ×3 (02:50→17:34)
[2018-08-18] MEDS: VANCOMYCIN 1 GRAM (PRE-DOCKED) 1,000 MG/250 ML BAG IVPB SCH ×2 (03:12→14:12)
[2018-08-18] MEDS: LEVOTHYROXINE NA 25 MCG TABLET (FP) PO SCH (06:00)
[2018-08-18 06:21] LABS: BASO % 0.7 % (0-2.0); EOS % 4.3 % (0-4.5); HEMATOCRIT 34.8 % (32.4-45.2); HEMOGLOBIN 10.9 GM/dL (10.7-15.3); MCHC 31.4 g/dl (32.0-36.0); MEAN CELL VOLUME 92.6 fl (80-96); MEAN PLT VOLUME 7.8 fl (7.5-11.1); MONO % 6.9 % (3.8-10.2); NEUT % 74.1 % (42.8-82.8); PLATELET COUNT 314 K/MM3 (134-434); RBC 3.76 M/mm3 (3.60-5.2); RDW 16.8 % (11.6-15.6)
[2018-08-18 06:37] LABS: INR 1.18 (0.83-1.09); PROTHROMBIN TIME (PATIENT) 13.9 SEC (9.7-13.0)
[2018-08-18 06:40] LABS: ACTIVATED PTT 26.9 SECONDS (25.2-36.5)
[2018-08-18 07:04] LABS: ALBUMIN 2.3 g/dl (3.4-5.0); ALK PHOS 99 U/L (45-117); ANION GAP 4 MMOL/L (8-16); BILIRUBIN,TOTAL 0.7 mg/dL (0.2-1); BLOOD UREA NITROGEN 10 mg/dL (7-18); CALCIUM 8.4 mg/dL (8.5-10.1); CHLORIDE 98 mmol/L (98-107); CO2 34 mmol/L (21-32); CREATININE 0.9 mg/dL (0.55-1.3); GLUCOSE,RANDOM 73 mg/dL (74-106); PHOSPHOROUS 2.7 mg/dL (2.5-4.9); POTASSIUM 3.7 mmol/L (3.5-5.1); SGOT/AST 12 U/L (15-37); SGPT/ALT 11 U/L (13-61); SODIUM 137 mmol/L (136-145); TOT PROT 6.7 g/dl (6.4-8.2)
[2018-08-18] MEDS ORDERED: PT OWN MED DRAWER 7, Y5N ONE ×4 (09:22→20:54)
[2018-08-18] MEDS ORDERED: DONEPEZIL HCL 5 MG TABLET (FP) PO SCH (10:00)
[2018-08-18] MEDS: HEPARIN NA (PORCINE) 5,000 UNITS/ML 1ML VIAL SQ SCH ×2 (10:28→21:11)
[2018-08-18] MEDS ORDERED: oxyCODONE HCL 5 MG TABLET PO PRN (11:07)
[2018-08-18] MEDS: ALPRAZolam 2 MG TABLET PO PRN (11:29)
[2018-08-18] MEDS: FOLIC ACID 1 MG TABLET (FP) PO SCH (11:30)
[2018-08-18] MEDS: GABAPENTIN 300 MG CAPSULE (FP) PO SCH ×2 (11:30→21:11)
[2018-08-18] MEDS: NYSTATIN POWDER 100,000 UNITS/GM - 15 GM TOPICAL POWDER TP SCH ×2 (12:39→22:35)
--- NOTE | 2018-08-18 13:57 | CONSULT ---
- Consultation REQUESTING PROVIDER: CONSULT REQUEST: We have been asked to surgically evaluate this patient for ( bilateral foot ulcerations). PCP:Neetu Langston HISTORY OF PRESENT ILLNESS: 82 y/o F w/ PMHx TIA, chronic LE wounds, HTN, ankylosing spondylitis, psoriatic arthritis and HLD admitted for bilateral lower extremity wounds/cellulitis. Pt states wounds have been present for the past few months. Has been following in wound care with Dr Medeiros. Topical treatments have included Calcium alginate, gentamycin ointment, and most recently medihoney. Reports some burning with application of topical treatments. Denies use of abx, trauma, new medications etc prior to onset of rash. Denies fevers/chills at home. denies sob, cp, n/v/d. At baseline pt lives home on her own with son in proximity. Ambulates with cane/ walker. Has VNS 3 times per week. PMHx: as above PSHx: cholecystectomy Home Medications Medication Instructions Recorded Atorvastatin Calcium 20 mg PO HS 11/23/15 Folic Acid 1 mg PO DAILY 11/23/15 Gabapentin 300 mg PO BID 11/23/15 Montelukast Na [Singulair -] 10 mg PO HS 11/23/15 Diltiazem Cd [Cardizem Cd -] 120 mg PO DAILY #30 cap.cd.24h 11/27/15 Bacitracin - [Bacitracin Topical 1 applic TP DAILY #1 tube 06/20/16 Ointment -] Alprazolam [Xanax] 1 mg PO DAILY PRN #7 tablet MDD 1 12/09/16 Donepezil HCl [Aricept -] 5 mg PO DAILY #30 tablet 12/09/16 Oxycodone HCl/Acetaminophen 1 each PO TID PRN #10 tablet MDD 3 12/09/16 [Oxycodone-Acetaminophen 5-325] Potassium Chloride [Potassium 20 meq PO DAILY #60 ml 12/09/16 Chloride Oral Liquid] Nystatin Powder [Nystop Powder -] 60 gm TP BID #1 powder 08/10/18 Allergies Allergy/AdvReac Type Severity Reaction Status Date / Time amoxicillin [Amoxicillin] Allergy Verified 03/16/18 16:01 Penicillins Allergy Verified 03/16/18 16:01 silver sulfadiazine Allergy Verified 07/03/18 13:55 [From Silvadene] escitalopram AdvReac Intermediate Verified 03/16/18 16:01 levofloxacin [Levofloxacin] AdvReac Intermediate Verified 03/16/18 16:01 REVIEW OF SYSTEMS: CONSTITUTIONAL: Absent: fever, chills CARDIOVASCULAR: Absent: chest pain, syncope RESPIRATORY: Absent: cough, shortness of breath GASTROINTESTINAL: Absent: abdominal pain SKIN: + rash PHYSICAL EXAM: GENERAL: Awake, alert, and fully oriented, in no acute distress. HEAD: Normal with no signs of trauma. LOWER EXTREMITIES: Bilateral feet with desquamation of skin over forefoot and toes (more prominent over plantar surface) R>>L. No blistering noted. + erythema up to ankles b/l. +fibrinous exudate between toes. Vas: 2+ dp/pt b/l. Vital Signs Temperature 98.3 F 08/18/18 06:12 Pulse Rate 77 08/18/18 06:12 Respiratory Rate 18 08/18/18 09:00 Blood Pressure 109/53 L 08/18/18 06:12 O2 Sat by Pulse Oximetry (%) 95 08/18/18 09:00 Lab Results WBC 10.0 K/mm3 (4.0-10.0) 08/18/18 05:50 RBC 3.76 M/mm3 (3.60-5.2) 08/18/18 05:50 Hgb 10.9 GM/dL (10.7-15.3) 08/18/18 05:50 Hct 34.8 % (32.4-45.2) 08/18/18 05:50 MCV 92.6 fl (80-96) 08/18/18 05:50 MCHC 31.4 g/dl (32.0-36.0) L 08/18/18 05:50 RDW 16.8 % (11.6-15.6) H 08/18/18 05:50 Plt Count 314 K/MM3 (134-434) 08/18/18 05:50 Sodium 137 mmol/L (136-145) 08/18/18 05:50 Potassium 3.7 mmol/L (3.5-5.1) 08/18/18 05:50 Chloride 98 mmol/L (98-107) 08/18/18 05:50 Carbon Dioxide 34 mmol/L (21-32) H 08/18/18 05:50 Anion Gap 4 MMOL/L (8-16) L 08/18/18 05:50 BUN 10 mg/dL (7-18) 08/18/18 05:50 Creatinine 0.9 mg/dL (0.55-1.3) 08/18/18 05:50 Random Glucose 73 mg/dL (74-106) L 08/18/18 05:50 Calcium 8.4 mg/dL (8.5-10.1) L 08/18/18 05:50 INR 1.18 (0.83-1.09) H 08/18/18 05:50 A/P: 82 y/o F w/ PMHx TIA, chronic LE wounds, HTN, ankylosing spondylitis, psoriatic arthritis and HLD admitted for bilateral lower extremity wounds/ cellulitis. B/L forefoot with desquamation of skin, R>L. Pt without memory of preceding event/trauma. Now with cellulitis. -Recommend dry gauze between toes, change bid to prevent maceration -zinc ointment ordered (pt allergic to Sulfadiazine) -Dermatology contacted for evaluation-Dr Samira Bettencourt -Abx per ID -Remainder of care per primary team d/w attending Dr Medeiros
[2018-08-18] MEDS ORDERED: ZINC OXIDE 20% TOPICAL OINTMENT 30 GM TUBE TP ONE (14:15)
[2018-08-18] MEDS: oxyCODONE HCL 5 MG TABLET PO SCH (17:33)
[2018-08-18] MEDS: DOCUSATE SODIUM 100 MG CAPSULE (FP) PO SCH (21:10)
[2018-08-18] MEDS: MONTELUKAST NA 10 MG TABLET PO SCH (21:10)
[2018-08-18] MEDS: ATORVASTATIN CA 20 MG TABLET (FP) PO SCH (21:10)
[2018-08-18] MEDS: TRIAMCINOLONE ACET 0.1% OINT 15 GM TUBE TP SCH (21:11)
[2018-08-18] MEDS: ZINC OXIDE 20% TOPICAL OINTMENT 30 GM TUBE TP SCH (21:12)
[2018-08-19] MEDS: oxyCODONE HCL 5 MG TABLET PO SCH ×4 (00:45→17:57)
[2018-08-19] MEDS ORDERED: PT OWN MED DRAWER 7, Y5N ONE ×2 (01:20→14:21)
[2018-08-19] MEDS: CLINDAMYCIN 600MG PREMIX IVPB 600 MG/50 ML BAG IVPB SCH ×2 (01:28→09:46)
[2018-08-19] MEDS: AZTREONAM 1 GM in DEXTROSE 5%-WATER - 50 ML IVPB SCH ×3 (02:22→17:58)
[2018-08-19] MEDS: VANCOMYCIN 1 GRAM (PRE-DOCKED) 1,000 MG/250 ML BAG IVPB SCH ×2 (02:55→14:32)
[2018-08-19] MEDS: LEVOTHYROXINE NA 25 MCG TABLET (FP) PO SCH (06:04)
[2018-08-19 08:06] LABS: SERUM IRON SATURATION 19 % (15-55); TOTAL IRON BINDING CAPACITY 214 ug/dL (250-450); UIBC 174 ug/dL (118-369)
--- NOTE | 2018-08-19 08:27 | PN ---
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, Physician Chief Complaint: note for 08/18/18 BLLE celullitis History of Present Illness: c/o BLLE pain Seen by ID for BLLE cellulitis Has been treated outpatient by wound care center with multiple oral and topical agents with no improvement On IV abx here - Current Medication List Current Medications: Active Medications Acetaminophen (Tylenol -) 650 mg PO Q6H PRN PRN Reason: PAIN LEVEL 4 - 6 Acetaminophen (Tylenol -) 325 mg PO TID PRN PRN Reason: PAIN 7-10 Alprazolam (Xanax -) 1 mg PO DAILY PRN PRN Reason: ANXIETY Last Admin: 08/18/18 11:29 Dose: 1 mg Atorvastatin Calcium (Lipitor -) 20 mg PO HS [facility] Last Admin: 08/18/18 21:10 Dose: 20 mg Carbidopa/Levodopa (Sinemet *Cr* 25/100 -) 0.5 combo PO TIDCM RICK Stop: 08/20/18 17:31 Last Admin: 08/19/18 07:42 Dose: 0.5 combo Carbidopa/Levodopa (Sinemet *Cr* 25/100 -) 1 combo PO TIDCM RICK Diltiazem HCl (Cardizem Cd -) 120 mg PO DAILY [facility] Last Admin: 08/18/18 11:30 Dose: 120 mg Docusate Sodium (Colace -) 300 mg PO HS [facility] Last Admin: 08/18/18 21:10 Dose: 300 mg Donepezil HCl (Aricept -) 10 mg PO DAILY [facility] Folic Acid (Folic Acid -) 1 mg PO DAILY [facility]ICK Last Admin: 08/18/18 11:30 Dose: 1 mg Gabapentin (Neurontin -) 300 mg PO BID [facility] Last Admin: 08/18/18 21:11 Dose: 300 mg Heparin Sodium (Porcine) (Heparin -) 5,000 unit SQ BID [facility]ICK Last Admin: 08/18/18 21:11 Dose: 5,000 unit Aztreonam 1 gm/ Dextrose 50 mls @ 100 mls/hr IVPB Q8H-IV RICK; Protocol Last Admin: 08/19/18 02:22 Dose: 100 mls/hr Clindamycin Phosphate (Cleocin 600 Mg Premix Ivpb -) 600 mg in 50 mls @ 100 mls /hr IVPB Q8H-IV RICK; Protocol Last Admin: 08/19/18 01:28 Dose: 100 mls/hr Levothyroxine Sodium (Synthroid -) 25 mcg PO DAILY@0700 [facility] Last Admin: 08/19/18 06:04 Dose: 25 mcg Montelukast Sodium (Singulair -) 10 mg PO HS [facility] Last Admin: 08/18/18 21:10 Dose: 10 mg Multi-Ingredient Ointment (Zinc Oxide) 1 applic TP BID [facility] Last Admin: 08/18/18 21:12 Dose: 1 applic Nystatin (Nystop Powder -) 1 applic TP BID [facility] Last Admin: 08/18/18 22:35 Dose: 1 appful Oxycodone HCl (Roxicodone -) 10 mg PO Q6HPO [facility] Last Admin: 08/19/18 06:05 Dose: 10 mg Triamcinolone Acetonide (Aristocort 0.1% Ointment -) 1 applic TP BID [facility] Last Admin: 08/18/18 21:11 Dose: 1 applic Vancomycin HCl (Vancomycin (Pre-Docked)) 1,000 mg IVPB BID@0200,1400 [facility] Last Admin: 08/19/18 02:55 Dose: 1,000 mg - Objective Vital Signs: Vital Signs Temperature 97.7 F 08/19/18 06:46 Pulse Rate 73 08/19/18 06:46 Respiratory Rate 20 08/19/18 06:46 Blood Pressure 119/60 08/19/18 06:46 O2 Sat by Pulse Oximetry (%) 95 08/18/18 21:00 Constitutional: Yes: Well Nourished, No Distress, Calm Cardiovascular: Yes: Regular Rate and Rhythm Respiratory: Yes: Regular Gastrointestinal: Yes: Normal Bowel Sounds, Soft Musculoskeletal: Yes: Muscle Weakness Extremities: Yes: Erythema (BLLE) Edema: No Peripheral Pulses WNL: Yes Wound/Incision: Yes: Dressing Dry and Intact Neurological: Yes: Alert, Oriented Psychiatric: Yes: Alert, Oriented Labs: CBC, BMP 08/18/18 05:50 08/18/18 05:50 INR, PTT INR 1.18 (0.83-1.09) H 08/18/18 05:50 Problem List - Problems (1) Chronic low back pain Assessment/Plan: -restart Oxycodone 10 mg QID Code(s): M54.5 - LOW BACK PAIN; G89.29 - OTHER CHRONIC PAIN (2) Cellulitis Assessment/Plan: -ID consult -Vascular surgery consult -IV abx -Cultures pending: Microbiology 08/17/18 12:04 Blood - Peripheral Venous Blood Culture - Preliminary NO GROWTH OBTAINED AFTER 48 HOURS, INCUBATION TO CONTINUE FOR 3 DAYS. 08/17/18 12:04 Blood - Peripheral Venous Blood Culture - Preliminary NO GROWTH OBTAINED AFTER 48 HOURS, INCUBATION TO CONTINUE FOR 3 DAYS. 08/17/18 13:15 Foot - Right Gram Stain - Final 08/17/18 13:15 Foot - Right Wound Culture - Preliminary Pseudomonas Aeruginosa Staphylococcus Aureus Group D Strep Or Entero Coccus -afebrile Code(s): L03.90 - CELLULITIS, UNSPECIFIED Qualifiers: Site of cellulitis: extremity Site of cellulitis of extremity: lower extremity Laterality: unspecified laterality Qualified Code(s): L03.119 - Cellulitis of unspecified part of limb (3) PAD (peripheral artery disease) Code(s): I73.9 - PERIPHERAL VASCULAR DISEASE, UNSPECIFIED Assessment/Plan see problem list Physical therapy DVT prophylaxis
--- NOTE | 2018-08-19 08:27 | PN ---
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, Physician Chief Complaint: BLLE cellulitis History of Present Illness: Feels a bit better seen by Neurology for dementia and parkinsonian symptoms Spoke to Dermatology Dr Samira Bettencourt, who has treated patient in the past for BLLE eczema, given triamcinolone with improvement Also started on Sinemet CT head unremarkable Seen by ID for BLLE cellulitis Has been treated outpatient by wound care center with multiple oral and topical agents with no improvement On IV abx here - Current Medication List Current Medications: Active Medications Acetaminophen (Tylenol -) 650 mg PO Q6H PRN PRN Reason: PAIN LEVEL 4 - 6 Acetaminophen (Tylenol -) 325 mg PO TID PRN PRN Reason: PAIN 7-10 Alprazolam (Xanax -) 1 mg PO DAILY PRN PRN Reason: ANXIETY Last Admin: 08/18/18 11:29 Dose: 1 mg Atorvastatin Calcium (Lipitor -) 20 mg PO HS [facility] Last Admin: 08/18/18 21:10 Dose: 20 mg Carbidopa/Levodopa (Sinemet *Cr* 25/100 -) 0.5 combo PO TIDCM [facility] Stop: 08/20/18 17:31 Last Admin: 08/19/18 07:42 Dose: 0.5 combo Carbidopa/Levodopa (Sinemet *Cr* 25/100 -) 1 combo PO TIDCM [facility] Diltiazem HCl (Cardizem Cd -) 120 mg PO DAILY [facility] Last Admin: 08/18/18 11:30 Dose: 120 mg Docusate Sodium (Colace -) 300 mg PO HS [facility] Last Admin: 08/18/18 21:10 Dose: 300 mg Donepezil HCl (Aricept -) 10 mg PO DAILY [facility] Folic Acid (Folic Acid -) 1 mg PO DAILY [facility] Last Admin: 08/18/18 11:30 Dose: 1 mg Gabapentin (Neurontin -) 300 mg PO BID [facility] Last Admin: 08/18/18 21:11 Dose: 300 mg Heparin Sodium (Porcine) (Heparin -) 5,000 unit SQ BID [facility] Last Admin: 08/18/18 21:11 Dose: 5,000 unit Aztreonam 1 gm/ Dextrose 50 mls @ 100 mls/hr IVPB Q8H-IV RICK; Protocol Last Admin: 08/19/18 02:22 Dose: 100 mls/hr Clindamycin Phosphate (Cleocin 600 Mg Premix Ivpb -) 600 mg in 50 mls @ 100 mls /hr IVPB Q8H-IV RICK; Protocol Last Admin: 08/19/18 01:28 Dose: 100 mls/hr Levothyroxine Sodium (Synthroid -) 25 mcg PO DAILY@0700 [facility] Last Admin: 08/19/18 06:04 Dose: 25 mcg Montelukast Sodium (Singulair -) 10 mg PO HS [facility] Last Admin: 08/18/18 21:10 Dose: 10 mg Multi-Ingredient Ointment (Zinc Oxide) 1 applic TP BID [facility] Last Admin: 08/18/18 21:12 Dose: 1 applic Nystatin (Nystop Powder -) 1 applic TP BID [facility] Last Admin: 08/18/18 22:35 Dose: 1 appful Oxycodone HCl (Roxicodone -) 10 mg PO Q6HPO [facility] Last Admin: 08/19/18 06:05 Dose: 10 mg Triamcinolone Acetonide (Aristocort 0.1% Ointment -) 1 applic TP BID [facility] Last Admin: 08/18/18 21:11 Dose: 1 applic Vancomycin HCl (Vancomycin (Pre-Docked)) 1,000 mg IVPB BID@0200,1400 [facility] Last Admin: 08/19/18 02:55 Dose: 1,000 mg - Objective Vital Signs: Vital Signs Temperature 97.7 F 08/19/18 06:46 Pulse Rate 73 08/19/18 06:46 Respiratory Rate 20 08/19/18 06:46 Blood Pressure 119/60 08/19/18 06:46 O2 Sat by Pulse Oximetry (%) 95 08/18/18 21:00 Constitutional: Yes: Well Nourished, No Distress, Calm Cardiovascular: Yes: Regular Rate and Rhythm Respiratory: Yes: Regular Gastrointestinal: Yes: Normal Bowel Sounds, Soft Genitourinary: Yes: WNL Musculoskeletal: Yes: Muscle Weakness Extremities: Yes: Erythema (BLLE) Edema: No Peripheral Pulses WNL: Yes Neurological: Yes: Alert, Oriented, Unsteady Gait, Weakness Psychiatric: Yes: Alert, Oriented Labs: CBC, BMP 08/18/18 05:50 08/18/18 05:50 INR, PTT INR 1.18 (0.83-1.09) H 08/18/18 05:50 Problem List - Problems (1) Cellulitis Assessment/Plan: -ID consult -Vascular surgery consult -IV abx -Cultures pending: Microbiology 08/17/18 12:04 Blood - Peripheral Venous Blood Culture - Preliminary NO GROWTH OBTAINED AFTER 48 HOURS, INCUBATION TO CONTINUE FOR 3 DAYS. 08/17/18 12:04 Blood - Peripheral Venous Blood Culture - Preliminary NO GROWTH OBTAINED AFTER 48 HOURS, INCUBATION TO CONTINUE FOR 3 DAYS. 08/17/18 13:15 Foot - Right Gram Stain - Final 08/17/18 13:15 Foot - Right Wound Culture - Preliminary Pseudomonas Aeruginosa Staphylococcus Aureus Group D Strep Or Entero Coccus -afebrile Code(s): L03.90 - CELLULITIS, UNSPECIFIED Qualifiers: Site of cellulitis: extremity Site of cellulitis of extremity: lower extremity Laterality: unspecified laterality Qualified Code(s): L03.119 - Cellulitis of unspecified part of limb (2) Chronic low back pain Assessment/Plan: -restart Oxycodone 10 mg QID Code(s): M54.5 - LOW BACK PAIN; G89.29 - OTHER CHRONIC PAIN (3) PAD (peripheral artery disease) Code(s): I73.9 - PERIPHERAL VASCULAR DISEASE, UNSPECIFIED Assessment/Plan see problem list Physical therapy DVT prophylaxis
[2018-08-19] MEDS: DONEPEZIL HCL 10 MG TABLET (FP) PO SCH (09:46)
[2018-08-19] MEDS: GABAPENTIN 300 MG CAPSULE (FP) PO SCH ×2 (09:46→21:30)
[2018-08-19] MEDS: FOLIC ACID 1 MG TABLET (FP) PO SCH (09:46)
[2018-08-19] MEDS: HEPARIN NA (PORCINE) 5,000 UNITS/ML 1ML VIAL SQ SCH ×2 (09:47→21:30)
[2018-08-19] MEDS: TRIAMCINOLONE ACET 0.1% OINT 15 GM TUBE TP SCH ×2 (09:47→21:29)
[2018-08-19] MEDS: ZINC OXIDE 20% TOPICAL OINTMENT 30 GM TUBE TP SCH ×2 (09:47→21:28)
[2018-08-19] MEDS: NYSTATIN POWDER 100,000 UNITS/GM - 15 GM TOPICAL POWDER TP SCH ×2 (09:47→21:30)
[2018-08-19] MEDS: ACETAMINOPHEN 325 MG TABLET (FP) PO PRN ×2 (12:23→17:59)
--- NOTE | 2018-08-19 16:08 | PN ---
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, Physician History of Present Illness: Awake, alert No complaints offerred Afebrile Tolerating antibiotics - Current Medication List Current Medications: Active Medications Acetaminophen (Tylenol -) 650 mg PO Q6H PRN PRN Reason: PAIN LEVEL 4 - 6 Acetaminophen (Tylenol -) 325 mg PO TID PRN PRN Reason: PAIN 7-10 Last Admin: 08/19/18 12:23 Dose: 325 mg Alprazolam (Xanax -) 1 mg PO DAILY PRN PRN Reason: ANXIETY Last Admin: 08/18/18 11:29 Dose: 1 mg Atorvastatin Calcium (Lipitor -) 20 mg PO HS [facility] Last Admin: 08/18/18 21:10 Dose: 20 mg Carbidopa/Levodopa (Sinemet *Cr* 25/100 -) 0.5 combo PO TIDCM RICK Stop: 08/20/18 17:31 Last Admin: 08/19/18 12:23 Dose: 0.5 combo Carbidopa/Levodopa (Sinemet *Cr* 25/100 -) 1 combo PO TIDCM RICK Diltiazem HCl (Cardizem Cd -) 120 mg PO DAILY [facility] Last Admin: 08/19/18 09:46 Dose: 120 mg Docusate Sodium (Colace -) 300 mg PO HS [facility] Last Admin: 08/18/18 21:10 Dose: 300 mg Donepezil HCl (Aricept -) 10 mg PO DAILY [facility] Last Admin: 08/19/18 09:46 Dose: 10 mg Folic Acid (Folic Acid -) 1 mg PO DAILY [facility] Last Admin: 08/19/18 09:46 Dose: 1 mg Gabapentin (Neurontin -) 300 mg PO BID [facility] Last Admin: 08/19/18 09:46 Dose: 300 mg Heparin Sodium (Porcine) (Heparin -) 5,000 unit SQ BID [facility] Last Admin: 08/19/18 09:47 Dose: 5,000 unit Aztreonam 1 gm/ Dextrose 50 mls @ 100 mls/hr IVPB Q8H-IV RICK; Protocol Last Admin: 08/19/18 09:47 Dose: 100 mls/hr Clindamycin Phosphate (Cleocin 600 Mg Premix Ivpb -) 600 mg in 50 mls @ 100 mls /hr IVPB Q8H-IV RICK; Protocol Last Admin: 08/19/18 09:46 Dose: 100 mls/hr Levothyroxine Sodium (Synthroid -) 25 mcg PO DAILY@0700 [facility] Last Admin: 08/19/18 06:04 Dose: 25 mcg Montelukast Sodium (Singulair -) 10 mg PO HS [facility] Last Admin: 08/18/18 21:10 Dose: 10 mg Multi-Ingredient Ointment (Zinc Oxide) 1 applic TP BID [facility] Last Admin: 08/19/18 09:47 Dose: 1 applic Nystatin (Nystop Powder -) 1 applic TP BID [facility] Last Admin: 08/19/18 09:47 Dose: 1 appful Oxycodone HCl (Roxicodone -) 10 mg PO Q6HPO [facility] Last Admin: 08/19/18 12:22 Dose: 10 mg Triamcinolone Acetonide (Aristocort 0.1% Ointment -) 1 applic TP BID [facility] Last Admin: 08/19/18 09:47 Dose: 1 applic Vancomycin HCl (Vancomycin (Pre-Docked)) 1,000 mg IVPB BID@0200,1400 [facility] Last Admin: 08/19/18 14:32 Dose: 1,000 mg - Objective Vital Signs: Vital Signs Temperature 97.8 F 08/19/18 09:00 Pulse Rate 86 08/19/18 09:00 Respiratory Rate 20 08/19/18 09:00 Blood Pressure 120/73 08/19/18 09:00 O2 Sat by Pulse Oximetry (%) 95 08/19/18 09:00 Constitutional: Yes: No Distress Eyes: Yes: Conjunctiva Clear Cardiovascular: Yes: Regular Rate and Rhythm, S1, S2 Respiratory: Yes: CTA Bilaterally Gastrointestinal: Yes: Normal Bowel Sounds, Soft. No: Tenderness Extremities: Yes: Other (erythema LE largely resolved. Rash improved) Labs: CBC, BMP 08/18/18 05:50 08/18/18 05:50 INR, PTT INR 1.18 (0.83-1.09) H 08/18/18 05:50 Assessment/Plan Cellulitis LE bilaterally - improved Hx + wound c/s Pseudomonas/ MRSA Multiple antibiotic allergies Continue vanco/ aztreonam D/C clindamycin Local wound care
--- NOTE | 2018-08-19 20:23 | PN ---
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 (short form) - Note 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: NEUROLOGY PROGRESS: Events reviewed and discussed with son at bedside. He questions why a Neurology consultation was requested since his mother "cant walk because of her feet." Pt still complains of "Burning in her feet." B12, TSH, RPR- normal or negative EXAM: Cellulitis improved. No edema. Right boot bandaged. NEURO: Ox3. Reverses Trump. Recalls 2 of 3. Speech fluent Facial expressiveness is improved. Decreased Myoclonus. Decreased tremors. Decreased cogwheeling. Gait is much improved, shuffling. IMP: Non-focal exam Toxic-Metabolic encephalopathy- improved on antibiotics for cellulitis. OMS improved with TME, increased Donepezil Parkinsonism improved with TME and L-Dopa. Burning in legs at night likely due to PD-related Restless Legs Syndrome (RLS). SUGGEST: Continue antibiotics and wound care Continue Donepezil 10 mg q AM Increase Sinemet to CR 25/100 (ie: full tab) TID at 7, 12, and 5 PT for gait with walker. Could try Pramipexole qHS for burning dysesthesiae and insomnia. Begin with 0.125 mg x 4 days then 0.25 mg Neuro f/u and continued PT as out patient. Thank you very much, Shankar De Leon MD
[2018-08-19] MEDS: DOCUSATE SODIUM 100 MG CAPSULE (FP) PO SCH (21:29)
[2018-08-19] MEDS: ATORVASTATIN CA 20 MG TABLET (FP) PO SCH (21:29)
[2018-08-19] MEDS: MONTELUKAST NA 10 MG TABLET PO SCH (21:30)
[2018-08-20] MEDS: oxyCODONE HCL 5 MG TABLET PO SCH ×4 (00:01→17:27)
[2018-08-20] MEDS: VANCOMYCIN 1 GRAM (PRE-DOCKED) 1,000 MG/250 ML BAG IVPB SCH ×2 (01:15→14:11)
[2018-08-20] MEDS: AZTREONAM 1 GM in DEXTROSE 5%-WATER - 50 ML IVPB SCH ×3 (02:08→17:27)
[2018-08-20] MEDS: LEVOTHYROXINE NA 25 MCG TABLET (FP) PO SCH (06:24)
[2018-08-20] MEDS ORDERED: PT OWN MED DRAWER 7, Y5N ONE ×3 (09:04→17:22)
[2018-08-20] MEDS: GABAPENTIN 300 MG CAPSULE (FP) PO SCH ×2 (10:07→21:18)
[2018-08-20] MEDS: HEPARIN NA (PORCINE) 5,000 UNITS/ML 1ML VIAL SQ SCH ×2 (10:09→21:18)
[2018-08-20] MEDS: FOLIC ACID 1 MG TABLET (FP) PO SCH (10:09)
[2018-08-20] MEDS: DONEPEZIL HCL 10 MG TABLET (FP) PO SCH (10:09)
[2018-08-20] MEDS: NYSTATIN POWDER 100,000 UNITS/GM - 15 GM TOPICAL POWDER TP SCH ×2 (10:49→21:19)
[2018-08-20] MEDS: TRIAMCINOLONE ACET 0.1% OINT 15 GM TUBE TP SCH ×2 (10:49→21:19)
[2018-08-20] MEDS: ZINC OXIDE 20% TOPICAL OINTMENT 30 GM TUBE TP SCH ×2 (10:49→21:19)
--- NOTE | 2018-08-20 15:47 | PN ---
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, Physician Chief Complaint: Bilateral lower extremity cellulitis History of Present Illness: previous noted and events reviewed awake and alert NAD Recentyl yeniferal by Neurology for dementia and Parkinsonian symtpoms and recommendations to start Sinemet CR, spoke with patient son Noble Vasquez and he states that patient has own outpatient neurologist Dr. Shantell Levi and she was never placed on Sinement before and wishes for it to be discontinued after he spoke with Dr. Levi today - Current Medication List Current Medications: Active Medications Acetaminophen (Tylenol -) 650 mg PO Q6H PRN PRN Reason: PAIN LEVEL 4 - 6 Acetaminophen (Tylenol -) 325 mg PO TID PRN PRN Reason: PAIN 7-10 Last Admin: 08/19/18 17:59 Dose: 325 mg Alprazolam (Xanax -) 1 mg PO DAILY PRN PRN Reason: ANXIETY Last Admin: 08/18/18 11:29 Dose: 1 mg Atorvastatin Calcium (Lipitor -) 20 mg PO HS [facility] Last Admin: 08/19/18 21:29 Dose: 20 mg Carbidopa/Levodopa (Sinemet *Cr* 25/100 -) 0.5 combo PO TIDCM [facility]ICK Stop: 08/20/18 17:31 Last Admin: 08/20/18 12:11 Dose: 0.5 combo Carbidopa/Levodopa (Sinemet *Cr* 25/100 -) 1 combo PO TIDCM RICK Diltiazem HCl (Cardizem Cd -) 120 mg PO DAILY [facility] Last Admin: 08/20/18 10:09 Dose: 120 mg Docusate Sodium (Colace -) 300 mg PO HS [facility] Last Admin: 08/19/18 21:29 Dose: 300 mg Donepezil HCl (Aricept -) 10 mg PO DAILY [facility] Last Admin: 08/20/18 10:09 Dose: 10 mg Folic Acid (Folic Acid -) 1 mg PO DAILY [facility] Last Admin: 08/20/18 10:09 Dose: 1 mg Gabapentin (Neurontin -) 300 mg PO BID [facility] Last Admin: 08/20/18 10:07 Dose: 300 mg Heparin Sodium (Porcine) (Heparin -) 5,000 unit SQ BID [facility] Last Admin: 08/20/18 10:09 Dose: 5,000 unit Aztreonam 1 gm/ Dextrose 50 mls @ 100 mls/hr IVPB Q8H-IV [facility]; Protocol Last Admin: 08/20/18 10:25 Dose: 100 mls/hr Levothyroxine Sodium (Synthroid -) 25 mcg PO DAILY@0700 [facility] Last Admin: 08/20/18 06:24 Dose: 25 mcg Montelukast Sodium (Singulair -) 10 mg PO HS [facility] Last Admin: 08/19/18 21:30 Dose: 10 mg Multi-Ingredient Ointment (Zinc Oxide) 1 applic TP BID [facility] Last Admin: 08/19/18 21:28 Dose: 1 applic Nystatin (Nystop Powder -) 1 applic TP BID [facility] Last Admin: 08/19/18 21:30 Dose: 1 appful Oxycodone HCl (Roxicodone -) 10 mg PO Q6HPO [facility] Last Admin: 08/20/18 12:10 Dose: 10 mg Triamcinolone Acetonide (Aristocort 0.1% Ointment -) 1 applic TP BID [facility] Last Admin: 08/19/18 21:29 Dose: 1 applic Vancomycin HCl (Vancomycin (Pre-Docked)) 1,000 mg IVPB BID@0200,1400 [facility] Last Admin: 08/20/18 14:11 Dose: 1,000 mg - Objective Vital Signs: Vital Signs Temperature 97.8 F 08/20/18 13:57 Pulse Rate 82 08/20/18 13:57 Respiratory Rate 18 08/20/18 09:00 Blood Pressure 132/62 08/20/18 13:57 O2 Sat by Pulse Oximetry (%) 98 08/20/18 09:00 Constitutional: Yes: Well Nourished, No Distress Neck: Yes: Supple Cardiovascular: Yes: WNL, Regular Rate and Rhythm Respiratory: Yes: Regular, CTA Bilaterally Gastrointestinal: Yes: WNL, Soft Musculoskeletal: Yes: Muscle Weakness Extremities: Yes: Erythema (Bilateral lower extremity) Edema: No Neurological: Yes: Alert, Oriented, Pre-Existing Deficit Psychiatric: Yes: Alert, Oriented Labs: CBC, BMP 08/18/18 05:50 08/18/18 05:50 INR, PTT INR 1.18 (0.83-1.09) H 08/18/18 05:50 Problem List - Problems (1) Bilateral cellulitis of lower leg Code(s): L03.116 - CELLULITIS OF LEFT LOWER LIMB; L03.115 - CELLULITIS OF RIGHT LOWER LIMB (2) COPD (chronic obstructive pulmonary disease) Code(s): J44.9 - CHRONIC OBSTRUCTIVE PULMONARY DISEASE, UNSPECIFIED (3) HTN (hypertension) Code(s): I10 - ESSENTIAL (PRIMARY) HYPERTENSION (4) PAD (peripheral artery disease) Code(s): I73.9 - PERIPHERAL VASCULAR DISEASE, UNSPECIFIED Assessment/Plan cont IV ABT ID on board daily wound care wound cx positive, continue isolation precaution Sinement discontinued cont with BP meds dvt ppx
[2018-08-20] MEDS: MONTELUKAST NA 10 MG TABLET PO SCH (21:19)
[2018-08-20] MEDS: DOCUSATE SODIUM 100 MG CAPSULE (FP) PO SCH (21:19)
[2018-08-20] MEDS: ATORVASTATIN CA 20 MG TABLET (FP) PO SCH (21:19)
[2018-08-21] MEDS: oxyCODONE HCL 5 MG TABLET PO SCH ×4 (00:50→17:24)
[2018-08-21] MEDS: AZTREONAM 1 GM in DEXTROSE 5%-WATER - 50 ML IVPB SCH ×3 (01:14→17:24)
[2018-08-21] MEDS: VANCOMYCIN 1 GRAM (PRE-DOCKED) 1,000 MG/250 ML BAG IVPB SCH ×2 (02:03→13:26)
[2018-08-21] MEDS: ACETAMINOPHEN 325 MG TABLET (FP) PO PRN ×3 (06:32→17:24)
[2018-08-21] MEDS: LEVOTHYROXINE NA 25 MCG TABLET (FP) PO SCH (06:32)
[2018-08-21 07:39] LABS: HEMATOCRIT 36.9 % (32.4-45.2); HEMOGLOBIN 11.5 GM/dL (10.7-15.3); MCH 28.5 pg (25.7-33.7); MCHC 31.1 g/dl (32.0-36.0); MEAN CELL VOLUME 91.8 fl (80-96); MEAN PLT VOLUME 7.3 fl (7.5-11.1); PLATELET COUNT 315 K/MM3 (134-434); RBC 4.02 M/mm3 (3.60-5.2); RDW 17.1 % (11.6-15.6); WHITE BLOOD COUNT 7.6 K/mm3 (4.0-10.0)
[2018-08-21 08:46] LABS: ALBUMIN 2.1 g/dl (3.4-5.0); ALK PHOS 92 U/L (45-117); ANION GAP 8 MMOL/L (8-16); BILIRUBIN,TOTAL 0.4 mg/dL (0.2-1); BLOOD UREA NITROGEN 8 mg/dL (7-18); CALCIUM 8.9 mg/dL (8.5-10.1); CHLORIDE 101 mmol/L (98-107); CO2 28 mmol/L (21-32); CREATININE 0.7 mg/dL (0.55-1.3); GLUCOSE,RANDOM 81 mg/dL (74-106); SGOT/AST 21 U/L (15-37); SGPT/ALT 14 U/L (13-61); SODIUM 137 mmol/L (136-145); TOT PROT 6.6 g/dl (6.4-8.2)
[2018-08-21] MEDS: ALPRAZolam 2 MG TABLET PO PRN (10:36)
[2018-08-21] MEDS: FOLIC ACID 1 MG TABLET (FP) PO SCH (10:37)
[2018-08-21] MEDS: ZINC OXIDE 20% TOPICAL OINTMENT 30 GM TUBE TP SCH ×2 (10:37→21:43)
[2018-08-21] MEDS: TRIAMCINOLONE ACET 0.1% OINT 15 GM TUBE TP SCH ×2 (10:37→21:43)
[2018-08-21] MEDS: HEPARIN NA (PORCINE) 5,000 UNITS/ML 1ML VIAL SQ SCH ×2 (10:37→21:43)
[2018-08-21] MEDS: GABAPENTIN 300 MG CAPSULE (FP) PO SCH ×2 (10:37→21:42)
[2018-08-21] MEDS: DONEPEZIL HCL 10 MG TABLET (FP) PO SCH (10:37)
[2018-08-21] MEDS: NYSTATIN POWDER 100,000 UNITS/GM - 15 GM TOPICAL POWDER TP SCH ×2 (10:37→21:50)
--- NOTE | 2018-08-21 15:29 | PN ---
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, Physician History of Present Illness: Awake, alert No complaints of foot pain Afebrile Tolerating antibiotics WBC improved- WNL - Current Medication List Current Medications: Active Medications Acetaminophen (Tylenol -) 650 mg PO Q6H PRN PRN Reason: PAIN LEVEL 4 - 6 Acetaminophen (Tylenol -) 325 mg PO TID PRN PRN Reason: PAIN 7-10 Last Admin: 08/21/18 11:51 Dose: 325 mg Alprazolam (Xanax -) 1 mg PO DAILY PRN PRN Reason: ANXIETY Last Admin: 08/21/18 10:36 Dose: 1 mg Atorvastatin Calcium (Lipitor -) 20 mg PO HS [facility] Last Admin: 08/20/18 21:19 Dose: 20 mg Diltiazem HCl (Cardizem Cd -) 120 mg PO DAILY [facility] Last Admin: 08/21/18 10:37 Dose: 120 mg Docusate Sodium (Colace -) 300 mg PO HS [facility] Last Admin: 08/20/18 21:19 Dose: 300 mg Donepezil HCl (Aricept -) 10 mg PO DAILY [facility] Last Admin: 08/21/18 10:37 Dose: 10 mg Folic Acid (Folic Acid -) 1 mg PO DAILY [facility] Last Admin: 08/21/18 10:37 Dose: 1 mg Gabapentin (Neurontin -) 300 mg PO BID [facility] Last Admin: 08/21/18 10:37 Dose: 300 mg Heparin Sodium (Porcine) (Heparin -) 5,000 unit SQ BID [facility] Last Admin: 08/21/18 10:37 Dose: 5,000 unit Aztreonam 1 gm/ Dextrose 50 mls @ 100 mls/hr IVPB Q8H-IV [facility]; Protocol Last Admin: 08/21/18 10:36 Dose: 100 mls/hr Levothyroxine Sodium (Synthroid -) 25 mcg PO DAILY@0700 [facility] Last Admin: 08/21/18 06:32 Dose: 25 mcg Montelukast Sodium (Singulair -) 10 mg PO HS [facility] Last Admin: 08/20/18 21:19 Dose: 10 mg Multi-Ingredient Ointment (Zinc Oxide) 1 applic TP BID [facility] Last Admin: 08/21/18 10:37 Dose: 1 applic Nystatin (Nystop Powder -) 1 applic TP BID [facility] Last Admin: 08/21/18 10:37 Dose: 1 appful Oxycodone HCl (Roxicodone -) 10 mg PO Q6HPO [facility] Last Admin: 08/21/18 11:51 Dose: 10 mg Triamcinolone Acetonide (Aristocort 0.1% Ointment -) 1 applic TP BID [facility] Last Admin: 08/21/18 10:37 Dose: 1 applic Vancomycin HCl (Vancomycin (Pre-Docked)) 1,000 mg IVPB BID@0200,1400 [facility] Last Admin: 08/21/18 13:26 Dose: 1,000 mg - Objective Vital Signs: Vital Signs Temperature 97.3 F L 08/21/18 14:00 Pulse Rate 74 08/21/18 14:00 Respiratory Rate 18 08/21/18 10:28 Blood Pressure 99/53 L 08/21/18 14:00 O2 Sat by Pulse Oximetry (%) 94 L 08/21/18 09:00 Constitutional: Yes: No Distress Eyes: Yes: Conjunctiva Clear Cardiovascular: Yes: Regular Rate and Rhythm, S1, S2 Respiratory: Yes: CTA Bilaterally Gastrointestinal: Yes: Normal Bowel Sounds, Soft. No: Tenderness Extremities: Yes: Other (erythema L LE resolved. erythema R LE nearly resolved) Labs: CBC, BMP 08/21/18 06:15 08/21/18 06:15 INR, PTT INR 1.18 (0.83-1.09) H 08/18/18 05:50 Assessment/Plan Cellulitis LE bilaterally - improved Hx + wound c/s Pseudomonas/ MRSA Multiple antibiotic allergies Continue vanco/ aztreonam May substitute Keflex 500mg po bid x 7d PATIENT HAS TOLERATED CEPHALOSPORINS IN THE PAST Local wound care
--- NOTE | 2018-08-21 17:13 | PN ---
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, Physician Chief Complaint: Bilateral lower extremity cellulitis History of Present Illness: previous noted and events reviewed awake and alert NAD afebrile WBC down trend - Current Medication List Current Medications: Active Medications Acetaminophen (Tylenol -) 650 mg PO Q6H PRN PRN Reason: PAIN LEVEL 4 - 6 Acetaminophen (Tylenol -) 325 mg PO TID PRN PRN Reason: PAIN 7-10 Last Admin: 08/21/18 11:51 Dose: 325 mg Alprazolam (Xanax -) 1 mg PO DAILY PRN PRN Reason: ANXIETY Last Admin: 08/21/18 10:36 Dose: 1 mg Atorvastatin Calcium (Lipitor -) 20 mg PO HS [facility] Last Admin: 08/20/18 21:19 Dose: 20 mg Cephalexin HCl (Keflex -) 500 mg PO BID [facility] Stop: 08/28/18 22:01 Diltiazem HCl (Cardizem Cd -) 120 mg PO DAILY [facility] Last Admin: 08/21/18 10:37 Dose: 120 mg Docusate Sodium (Colace -) 300 mg PO HS [facility] Last Admin: 08/20/18 21:19 Dose: 300 mg Donepezil HCl (Aricept -) 10 mg PO DAILY [facility] Last Admin: 08/21/18 10:37 Dose: 10 mg Folic Acid (Folic Acid -) 1 mg PO DAILY [facility] Last Admin: 08/21/18 10:37 Dose: 1 mg Gabapentin (Neurontin -) 300 mg PO BID [facility] Last Admin: 08/21/18 10:37 Dose: 300 mg Heparin Sodium (Porcine) (Heparin -) 5,000 unit SQ BID [facility] Last Admin: 08/21/18 10:37 Dose: 5,000 unit Aztreonam 1 gm/ Dextrose 50 mls @ 100 mls/hr IVPB Q8H-IV [facility]; Protocol Last Admin: 08/21/18 10:36 Dose: 100 mls/hr Levothyroxine Sodium (Synthroid -) 25 mcg PO DAILY@0700 [facility] Last Admin: 08/21/18 06:32 Dose: 25 mcg Montelukast Sodium (Singulair -) 10 mg PO HS [facility] Last Admin: 08/20/18 21:19 Dose: 10 mg Multi-Ingredient Ointment (Zinc Oxide) 1 applic TP BID [facility] Last Admin: 08/21/18 10:37 Dose: 1 applic Nystatin (Nystop Powder -) 1 applic TP BID [facility] Last Admin: 08/21/18 10:37 Dose: 1 appful Oxycodone HCl (Roxicodone -) 10 mg PO Q6HPO [facility] Last Admin: 08/21/18 11:51 Dose: 10 mg Triamcinolone Acetonide (Aristocort 0.1% Ointment -) 1 applic TP BID [facility] Last Admin: 08/21/18 10:37 Dose: 1 applic Vancomycin HCl (Vancomycin (Pre-Docked)) 1,000 mg IVPB BID@0200,1400 [facility] Last Admin: 08/21/18 13:26 Dose: 1,000 mg - Objective Vital Signs: Vital Signs Temperature 97.3 F L 08/21/18 14:00 Pulse Rate 74 08/21/18 14:00 Respiratory Rate 18 08/21/18 10:28 Blood Pressure 99/53 L 08/21/18 14:00 O2 Sat by Pulse Oximetry (%) 94 L 08/21/18 09:00 Constitutional: Yes: Well Nourished, No Distress, Calm Neck: Yes: Supple Cardiovascular: Yes: WNL, Regular Rate and Rhythm Respiratory: Yes: Regular, CTA Bilaterally Gastrointestinal: Yes: Normal Bowel Sounds, Soft Musculoskeletal: Yes: Muscle Weakness Extremities: Yes: Erythema (RLE) Edema: Yes Edema: RLE: 1+ Neurological: Yes: Alert, Oriented Psychiatric: Yes: Alert, Oriented Labs: CBC, BMP 08/21/18 06:15 08/21/18 06:15 INR, PTT INR 1.18 (0.83-1.09) H 08/18/18 05:50 Problem List - Problems (1) Bilateral cellulitis of lower leg Code(s): L03.116 - CELLULITIS OF LEFT LOWER LIMB; L03.115 - CELLULITIS OF RIGHT LOWER LIMB (2) COPD (chronic obstructive pulmonary disease) Code(s): J44.9 - CHRONIC OBSTRUCTIVE PULMONARY DISEASE, UNSPECIFIED (3) HTN (hypertension) Code(s): I10 - ESSENTIAL (PRIMARY) HYPERTENSION (4) PAD (peripheral artery disease) Code(s): I73.9 - PERIPHERAL VASCULAR DISEASE, UNSPECIFIED Assessment/Plan ID on board to start on PO ABT 08/22/18 daily wound care wound cx positive, continue isolation precaution cont with BP meds dvt ppx
[2018-08-21] MEDS ORDERED: PT OWN MED DRAWER 7, Y5N ONE (21:18)
[2018-08-21] MEDS: MONTELUKAST NA 10 MG TABLET PO SCH (21:42)
[2018-08-21] MEDS: DOCUSATE SODIUM 100 MG CAPSULE (FP) PO SCH (21:42)
[2018-08-21] MEDS: ATORVASTATIN CA 20 MG TABLET (FP) PO SCH (21:42)
[2018-08-22] MEDS: oxyCODONE HCL 5 MG TABLET PO SCH ×4 (00:36→18:30)
[2018-08-22] MEDS: LEVOTHYROXINE NA 25 MCG TABLET (FP) PO SCH (06:31)
[2018-08-22] MEDS: GABAPENTIN 300 MG CAPSULE (FP) PO SCH ×2 (10:13→21:30)
[2018-08-22] MEDS: CEPHALEXIN MONOHYDRATE 500 MG CAPSULE (UD) PO SCH ×2 (10:14→21:30)
[2018-08-22] MEDS: FOLIC ACID 1 MG TABLET (FP) PO SCH (10:14)
[2018-08-22] MEDS: DONEPEZIL HCL 10 MG TABLET (FP) PO SCH (10:14)
[2018-08-22] MEDS: TRIAMCINOLONE ACET 0.1% OINT 15 GM TUBE TP SCH ×2 (10:16→21:30)
[2018-08-22] MEDS: ZINC OXIDE 20% TOPICAL OINTMENT 30 GM TUBE TP SCH ×2 (10:17→21:31)
[2018-08-22] MEDS: HEPARIN NA (PORCINE) 5,000 UNITS/ML 1ML VIAL SQ SCH ×2 (10:17→21:30)
[2018-08-22] MEDS: NYSTATIN POWDER 100,000 UNITS/GM - 15 GM TOPICAL POWDER TP SCH ×2 (10:17→21:30)
[2018-08-22] MEDS: ACETAMINOPHEN 325 MG TABLET (FP) PO PRN (18:32)
[2018-08-22] MEDS: MONTELUKAST NA 10 MG TABLET PO SCH (21:30)
[2018-08-22] MEDS: DOCUSATE SODIUM 100 MG CAPSULE (FP) PO SCH (21:30)
[2018-08-22] MEDS: ATORVASTATIN CA 20 MG TABLET (FP) PO SCH (21:30)
--- NOTE | 2018-08-22 22:24 | PN ---
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, Physician Chief Complaint: Bilateral lower extremity cellulitis History of Present Illness: previous noted and events reviewed awake and alert NAD afebrile tolerating PO ABT - Current Medication List Current Medications: Active Medications Acetaminophen (Tylenol -) 650 mg PO Q6H PRN PRN Reason: PAIN LEVEL 4 - 6 Acetaminophen (Tylenol -) 325 mg PO TID PRN PRN Reason: PAIN 7-10 Last Admin: 08/22/18 18:32 Dose: 325 mg Atorvastatin Calcium (Lipitor -) 20 mg PO [facility] Last Admin: 08/22/18 21:30 Dose: 20 mg Cephalexin HCl (Keflex -) 500 mg PO BID [facility] Stop: 08/28/18 22:01 Last Admin: 08/22/18 21:30 Dose: 500 mg Diltiazem HCl (Cardizem Cd -) 120 mg PO DAILY [facility] Last Admin: 08/22/18 10:13 Dose: 120 mg Docusate Sodium (Colace -) 300 mg PO [facility] Last Admin: 08/22/18 21:30 Dose: 300 mg Donepezil HCl (Aricept -) 10 mg PO DAILY [facility] Last Admin: 08/22/18 10:14 Dose: 10 mg Folic Acid (Folic Acid -) 1 mg PO DAILY [facility] Last Admin: 08/22/18 10:14 Dose: 1 mg Gabapentin (Neurontin -) 300 mg PO BID [facility] Last Admin: 08/22/18 21:30 Dose: 300 mg Heparin Sodium (Porcine) (Heparin -) 5,000 unit SQ BID [facility] Last Admin: 08/22/18 21:30 Dose: 5,000 unit Levothyroxine Sodium (Synthroid -) 25 mcg PO DAILY@0700 [facility] Last Admin: 08/22/18 06:31 Dose: 25 mcg Montelukast Sodium (Singulair -) 10 mg PO HS [facility] Last Admin: 08/22/18 21:30 Dose: 10 mg Multi-Ingredient Ointment (Zinc Oxide) 1 applic TP BID [facility] Last Admin: 08/22/18 21:31 Dose: 1 applic Nystatin (Nystop Powder -) 1 applic TP BID [facility] Last Admin: 08/22/18 21:30 Dose: 1 appful Oxycodone HCl (Roxicodone -) 10 mg PO Q6HPO [facility] Last Admin: 08/22/18 18:30 Dose: 10 mg Triamcinolone Acetonide (Aristocort 0.1% Ointment -) 1 applic TP BID [facility] Last Admin: 08/22/18 21:30 Dose: 1 applic - Objective Vital Signs: Vital Signs Temperature 98.6 F 08/22/18 20:10 Pulse Rate 78 08/22/18 20:10 Respiratory Rate 20 08/22/18 20:36 Blood Pressure 142/70 08/22/18 20:10 O2 Sat by Pulse Oximetry (%) 94 L 08/22/18 20:36 Constitutional: Yes: No Distress, Calm Cardiovascular: Yes: Regular Rate and Rhythm Respiratory: Yes: Regular, CTA Bilaterally Gastrointestinal: Yes: WNL, Soft Musculoskeletal: Yes: Muscle Weakness Extremities: Yes: Erythema (RLE) Neurological: Yes: Alert, Oriented Psychiatric: Yes: Alert, Oriented Labs: CBC, BMP 08/21/18 06:15 08/21/18 06:15 INR, PTT INR 1.18 (0.83-1.09) H 08/18/18 05:50 Problem List - Problems (1) Bilateral cellulitis of lower leg Code(s): L03.116 - CELLULITIS OF LEFT LOWER LIMB; L03.115 - CELLULITIS OF RIGHT LOWER LIMB (2) COPD (chronic obstructive pulmonary disease) Code(s): J44.9 - CHRONIC OBSTRUCTIVE PULMONARY DISEASE, UNSPECIFIED (3) HTN (hypertension) Code(s): I10 - ESSENTIAL (PRIMARY) HYPERTENSION (4) PAD (peripheral artery disease) Code(s): I73.9 - PERIPHERAL VASCULAR DISEASE, UNSPECIFIED Assessment/Plan ID on board cont PO ABT daily wound care wound cx positive, continue isolation precaution cont with BP meds PT eval dvt ppx
[2018-08-23] MEDS: oxyCODONE HCL 5 MG TABLET PO SCH ×3 (00:42→12:36)
[2018-08-23] MEDS: LEVOTHYROXINE NA 25 MCG TABLET (FP) PO SCH (06:26)
[2018-08-23] MEDS ORDERED: INSULIN (NOVOLOG) ASPART 100 UNITS/ML 10ML VIAL ONE (06:58)
[2018-08-23] MEDS: DONEPEZIL HCL 10 MG TABLET (FP) PO SCH (10:13)
[2018-08-23] MEDS: HEPARIN NA (PORCINE) 5,000 UNITS/ML 1ML VIAL SQ SCH (10:14)
[2018-08-23] MEDS: TRIAMCINOLONE ACET 0.1% OINT 15 GM TUBE TP SCH (10:14)
[2018-08-23] MEDS: NYSTATIN POWDER 100,000 UNITS/GM - 15 GM TOPICAL POWDER TP SCH (10:14)
[2018-08-23] MEDS: FOLIC ACID 1 MG TABLET (FP) PO SCH (10:14)
[2018-08-23] MEDS: CEPHALEXIN MONOHYDRATE 500 MG CAPSULE (UD) PO SCH (10:14)
[2018-08-23] MEDS: GABAPENTIN 300 MG CAPSULE (FP) PO SCH (10:14)
[2018-08-23] MEDS: ZINC OXIDE 20% TOPICAL OINTMENT 30 GM TUBE TP SCH (10:15)
[2018-08-23 14:06] VITALS: BP 126/64; PULSE 80; TEMP 98.1
--- NOTE | 2018-08-23 15:29 | DS ---
Physical Examination Vital Signs: Vital Signs Temperature 98.1 F 08/23/18 14:04 Pulse Rate 80 08/23/18 14:04 Respiratory Rate 20 08/23/18 10:00 Blood Pressure 126/64 08/23/18 14:04 O2 Sat by Pulse Oximetry (%) 94 L 08/22/18 20:36 Findings/Remarks: 82 y/o female patient admitted on 08/17/18 for B/L LE cellulitis. Initially treated with IV ABT and later switched to PO. Tolerated PO ABT and no reaction noted. Patient condition has improved. Jose coffey discharged home and resume VNS services. Instructed to follow up with PCP and Dr Medeiros. PT eval done to assess ambulation, as per eval patient able to ambulate with rolling walker. Constitutional: Yes: No Distress, Calm Eyes: Yes: Conjunctiva Clear Neck: Yes: Supple Cardiovascular: Yes: Regular Rate and Rhythm Respiratory: Yes: Regular, CTA Bilaterally Gastrointestinal: Yes: WNL, Soft Musculoskeletal: Yes: WNL Extremities: Yes: WNL Edema: Yes (mild, RLE) Integumentary: Yes: Erythema (RLE) Neurological: Yes: Alert, Oriented Psychiatric: Yes: Alert, Oriented Labs: CBC, BMP 08/21/18 06:15 08/21/18 06:15 Discharge Summary Reason For Visit: CELLULITIS Current Active Problems Cellulitis (Acute) Chronic low back pain (Acute) Condition: Improved - Instructions Diet, Activity, Other Instructions: Patient to have VNS services reinstated for wound care three days a week, please assess if further days needed for care Follow up with PCP 3-4 days Follow up with Dr Medeiros weekly Follow up with neurologist Dr Barry [facility] home meds as scheduled Referrals: Lanie Teresa MD [Primary Care Provider] - Disposition: HOME - Home Medications Comprehensive Discharge Medication List: Ambulatory Orders Atorvastatin Calcium 20 mg PO HS 11/23/15 Bacitracin - [Bacitracin Topical Ointment -] 1 applic TP DAILY #1 tube 06/20/16 Alprazolam [Xanax] 1 mg PO DAILY PRN #7 tablet MDD 1 12/09/16 Donepezil HCl [Aricept -] 5 mg PO DAILY #30 tablet 12/09/16 Oxycodone HCl/Acetaminophen [Oxycodone-Acetaminophen 5-325] 1 each PO TID PRN # 10 tablet MDD 3 12/09/16 Potassium Chloride [Potassium Chloride Oral Liquid] 20 meq PO DAILY #60 ml 12/09 Atorvastatin Ca [Lipitor] 20 mg PO HS #30 tablet 08/23/18 Cephalexin Monohydrate [Keflex -] 500 mg PO BID #11 capsule 08/23/18 Diltiazem Cd [Cardizem Cd -] 120 mg PO DAILY #30 cap.cd.24h 08/23/18 Docusate Sodium [Colace -] 300 mg PO HS #90 capsule 08/23/18 Donepezil HCl [Aricept -] 10 mg PO DAILY #30 tablet 08/23/18 Folic Acid 1 mg PO DAILY #30 tablet 08/23/18 Gabapentin 300 mg PO BID #180 capsule 08/23/18 Levothyroxine [Synthroid -] 25 mcg PO DAILY@0700 #30 tablet 08/23/18 Montelukast Na [Singulair -] 10 mg PO HS #30 tablet 08/23/18 Nystatin Powder [Nystop Powder -] 60 gm TP BID #1 powder 08/23/18 Triamcinolone 0.1% Ointment [Aristocort 0.1% Ointment -] 1 applic TP BID #1 applic 08/23/18 Zinc Oxide 1 applic TP BID #1 tube 08/23/18
== END 2018-08-23 16:37 | disposition home or self-care (01) | DRG 602 ==
LOC: JER 10:43 → JERBED 14:13 → J6S 17:00
PROVIDERS: ADMIT Student in an Organized Health Care Education/Training Program; ATTEND Student in an Organized Health Care Education/Training Program
DX: L03.116 Cellulitis of left lower limb (principal); G93.41 Metabolic encephalopathy; L03.115 Cellulitis of right lower limb; I10 Essential (primary) hypertension; E78.5 Hyperlipidemia, unspecified; K21.9 Gastro-esophageal reflux disease without esophagitis; E03.9 Hypothyroidism, unspecified; J44.9 Chronic obstructive pulmonary disease, unspecified; F03.90 Unspecified dementia, unspecified severity, without behavioral disturbance, psychotic disturbance, mood disturbance, and anxiety; M54.5 Low back pain; F41.9 Anxiety disorder, unspecified; G62.9 Polyneuropathy, unspecified; I73.9 Peripheral vascular disease, unspecified; B95.62 Methicillin resistant Staphylococcus aureus infection as the cause of diseases classified elsewhere; G25.81 Restless legs syndrome; G20 Parkinson's disease; Z88.1 Allergy status to other antibiotic agents; Z86.73 Personal history of transient ischemic attack (TIA), and cerebral infarction without residual deficits
CPT/HCPCS: 36415; 70450-TC; 71045-TC-FY; 80053; 82607; 82728; 83036; 83540; 83550; 83605; 83735; 84100; 84439; 84443; 84484; 85025; 85027; 85610; 85651; 85730; 86140; 86593; 87040; 87070; 87186; 87205; 93005; 93010; 97116-GP; 97161-GP; 99283-25; J1644

== ENCOUNTER 2019-02-19 10:58 | Inpatient (IN) | payer OTHER, BC | END 2019-02-24 11:48 | LOC: JER 10:58 → JERBED 17:58 → J6S 21:46 ==

== ENCOUNTER 2019-05-07 17:01 | Emergency (ER) | payer OTHER, BC ==
--- NOTE | 2019-05-07 17:03 | PDOC ---
Rapid Medical Evaluation Medical Evaluation: Allergies Allergy/AdvReac Type Severity Reaction Status Date / Time amoxicillin [Amoxicillin] Allergy Verified 02/19/19 11:45 Penicillins Allergy Verified 02/19/19 11:45 silver sulfadiazine Allergy Verified 02/19/19 11:45 [From Silvadene] escitalopram AdvReac Intermediate Verified 02/19/19 11:45 levofloxacin [Levofloxacin] AdvReac Intermediate Verified 02/19/19 11:45 05/07/19 17:03 I have performed a brief in-person evaluation of this patient. The patient presents with a chief complaint of: Pertinent physical exam findings: I have ordered the following: The patient will proceed to the ED for further evaluation.
[2019-05-07 17:24] VITALS: BMI 23.3
--- NOTE | 2019-05-07 17:35 | PDOC ---
History of Present Illness - General Chief Complaint: Injury Stated Complaint: FALL Time Seen by Provider: 05/07/19 17:34 - History of Present Illness Initial Comments: 05/07/19 17:37 83 year old female with a past medical history of COPD, TIA, chronic LE wounds, HTN, HLD recent fall requiring rehab in [facility] with recent discharge 1 week ago who presents to the emergency department with R hip pain after a fall that occurred while walking with her walker to the door. 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 She denies loss of consciousness. She denies feeling dizzy, lightheaded, chest pain or shortness of breath at the time of the fall. Denies nausea, vomiting, diarrhea, dysuria, hematuria. She reports some increase in cough productive or white phlegm. She has chronic leg wounds that have been appearing more red the past few days. She gets wound dressing MWF with home nurse. She denies any fevers or chills at home. Denies neck or back pain. SHe has no other complaints. ROS GENERAL/CONSTITUTIONAL: No fever or chills. No weakness. HEAD, EYES, EARS, NOSE AND THROAT: No change in vision. No ear pain or discharge. No sore throat. CARDIOVASCULAR: No chest pain or shortness of breath RESPIRATORY: + cough, No wheezing, or hemoptysis. GASTROINTESTINAL: No nausea, vomiting, diarrhea or constipation. GENITOURINARY: No dysuria, frequency, or change in urination. MUSCULOSKELETAL: No joint or muscle swelling or pain. No neck or back pain. SKIN: + redness at bilateral ankles NEUROLOGIC: No headache, vertigo, loss of consciousness, or change in strength/ sensation. PE GENERAL: Awake, alert, and fully oriented, in no acute distress HEAD: No signs of trauma, normocephalic, atraumatic EYES: pupils pinpoint, EOMI, sclera anicteric, conjunctiva clear ENT: oropharynx clear without exudates. Moist mucosa NECK: Normal ROM, supple LUNGS: No distress, speaks full sentences, crackles at bases bilaterally, R > L HEART: Regular rate and rhythm, normal S1 and S2, no murmurs, rubs or gallops, peripheral pulses normal and equal bilaterally. ABDOMEN: Soft, nontender, normoactive bowel sounds. No guarding, no rebound. No masses EXTREMITIES : Normal range of motion, no edema. No clubbing or cyanosis. NEUROLOGICAL: Cranial nerves II through XII grossly intact. Normal speech, normal gait, no focal sensorimotor deficits SKIN: 1cm stage 2 wound on L heel, erythematous and warm skin around feet and ankles MDM DDX including but not limited to: trauma concerning for intracranial pathology sepsis source concerning for pna vs uti vs cellulitis W/U: - sepsis set, head CT, cervical CT TX: - tylenol, ivf ED Course: Patient in C-collar Head CT: acute subdural along R lateral border of posterior pareital cerebral falx Cervical CT: small acute nondisplaced fx involving the ventral superior corner of C5 vertebral body Neurosurgery not virtualization architect Emmett called, discussed case with ER attending and Nuerosurg attending CXR : R basal PNA vanco and meropenem dosed Plan for transfer to neurosurgical evla nad management Patient agrees Negra Lowe, PGY2 Emergency Medicine Past History - Past Medical History Allergies/Adverse Reactions: Allergies Allergy/AdvReac Type Severity Reaction Status Date / Time amoxicillin [Amoxicillin] Allergy Verified 05/07/19 17:23 Penicillins Allergy Verified 05/07/19 17:23 silver sulfadiazine Allergy Verified 05/07/19 17:23 [From Silvadene] escitalopram AdvReac Intermediate Verified 05/07/19 17:23 levofloxacin [Levofloxacin] AdvReac Intermediate Verified 05/07/19 17:23 Home Medications: Ambulatory Orders Bacitracin - [Bacitracin Topical Ointment -] 1 applic TP DAILY #1 tube 06/20/16 Donepezil HCl [Aricept -] 5 mg PO DAILY #30 tablet 12/09/16 Atorvastatin Ca [Lipitor] 20 mg PO HS #30 tablet 08/23/18 Diltiazem Cd [Cardizem Cd -] 120 mg PO DAILY #30 cap.cd.24h 08/23/18 Docusate Sodium [Colace -] 300 mg PO HS #90 capsule 08/23/18 Gabapentin 300 mg PO BID #180 capsule 08/23/18 Levothyroxine [Synthroid -] 25 mcg PO DAILY@0700 #30 tablet 08/23/18 Montelukast Na [Singulair -] 10 mg PO HS #30 tablet 08/23/18 Nystatin Powder [Nystop Powder -] 60 gm TP BID #1 powder 08/23/18 Zinc Oxide 1 applic TP BID #1 tube 08/23/18 Acetaminophen [Tylenol .Regular Strength -] 325 mg PO Q8H PRN tablet 02/23/19 Alprazolam [Xanax] 1 mg PO Q12H PRN tablet MDD 2 02/23/19 Heparin - 5,000 unit SQ BID vial 02/23/19 oxyCODONE HCL [Roxicodone -] 5 mg PO Q8H PRN tablet MDD 3 02/23/19 Anemia: No Asthma: No Cancer: No Cardiac Disorders: Yes (a fib) CVA: No COPD: Yes CHF: No Dementia: No Diabetes: No GI Disorders: No Disorders: Yes (uti) HTN: Yes Hypercholesterolemia: Yes Liver Disease: No Seizures: No Thyroid Disease: No - Surgical History Abdominal Surgery: No Cardiac Surgery: No Cholecystectomy: Yes Lung Surgery: No Neurologic Surgery: No - Immunization History Td Vaccination: Yes TDAP Vaccination: Yes Immunization Up to Date: Yes - Suicide/Smoking/Psychosocial Hx Smoking Status: Yes Smoking History: Former smoker Years of Tobacco Use: 0 Have you smoked in the past 12 months: No Number of Cigarettes Smoked Daily: 20 If you are a former smoker, when did you quit?: 2016 Cigars Per Day: 0 Information on smoking cessation initiated: No 'Breaking Loose' booklet given: 11/23/15 Hx Alcohol Use: No Drug/Substance Use Hx: No Substance Use Type: None Hx Substance Use Treatment: No *Physical Exam - Vital Signs Last Vital Signs Temp Pulse Resp BP Pulse Ox 100 F H 130 H 16 141/50 L 88 L 05/07/19 17:10 05/07/19 17:10 05/07/19 17:10 05/07/19 17:10 05/07/19 17:10 ED Treatment Course - LABORATORY CBC & Chemistry Diagram: 05/07/19 20:00 05/07/19 22:48 *DC/Admit/Observation/Transfer Diagnosis at time of Disposition: Transfer dysphagia - Referrals Referrals: Jimmie Espino BELTING AND WEBBING INSPECTOR [Primary Care Provider] - - Patient Instructions - Post Discharge Activity
[2019-05-07] MEDS ORDERED: ACETAMINOPHEN 1000 MG/100 ML VIAL (NON FORMULARY) IVPB ONE (17:54)
[2019-05-07] MEDS ORDERED: SODIUM CHLORIDE 1,000 ML IV SCH (18:00)
[2019-05-07 18:18] VITALS: TEMP 99.7
--- NOTE | 2019-05-07 18:22 | PDOC ---
Attending Attestation - Resident Resident Name: Negra Lowe - ED Attending Attestation I have performed the following: I have examined & evaluated the patient, The case was reviewed & discussed with the resident, I agree w/resident's findings & plan - HPI HPI: 05/07/19 18:21 83y/o F h/o COPD, TIA, HTN, chonic lower extremity wounds, recent admission for falls/PT presents now s/p fall again, landing on her buttock. No other complaints, but on ROS pt and family report increased lung congestion and slight cough since last night. no sob/cp/abd pain/n/v/d/dysuria/frequency. slight increased redness to L ankle by wound but not unusual. - Physicial Exam PE: 05/07/19 18:23 fever, tachy, hypoxia at baseline alert and in nad, conversant and joking with staff head atraumatic, cspine nontender reg tachy, bibasilar crackles abd benign pelvis stable, tender L buttock, slight R hip ttp but no shortening/rotation and FROM of hips/knees chronic 2cm superficial L heel ulcer with blanching warm erythema around L ankle neuro nonfocal - Critical Care Time Total Critical Care Time: 40 Critical Care Statement: The care of this patient involved high complexity decision making to prevent further life threatening deterioration of the patient 's condition and/or to evaluate & treat vital organ system(s) failure or risk of failure. - Medical Decision Making 05/07/19 18:25 83-year-old female with recent admission presents now status post fall with vital signs concerning for SIRS/sepsis, possible pulmonary versus urinary source. Question early cellulitis of left lower extremity at skin ulceration, otherwise in no acute distress. Protocol initiated CT head/CT C-spine given fall Chest x-ray, pelvis x-ray Reassess, will require admission Heart Score/ECG Review #1 ECG reviewed & interpreted by me at: 17:24 General ECG Interpretation: Sinus Rhythm (tachy at 109 with PVC noted x2), Normal Intervals (qtc 422), No acute ischemic changes (PRWP, nonspecific T wave changes I/AVL)
[2019-05-07 20:40] LABS: BASO % 0.4 % (0-2.0); EOS % 0.2 % (0-4.5); HEMATOCRIT 36.4 % (32.4-45.2); HEMOGLOBIN 11.7 GM/dL (10.7-15.3); LYMPH % 2.8 % (8-40); MCH 30.8 pg (25.7-33.7); MCHC 32.2 g/dl (32.0-36.0); MEAN CELL VOLUME 95.6 fl (80-96); MONO % 6.9 % (3.8-10.2); NEUT % 89.7 % (42.8-82.8); RDW 14.7 % (11.6-15.6); WHITE BLOOD COUNT 20.7 K/mm3 (4.0-10.0)
[2019-05-07 20:43] LABS: INR 1.22 (0.83-1.09); PROTHROMBIN TIME (PATIENT) 14.4 SEC (9.7-13.0)
[2019-05-07] MEDS ORDERED: VANCOMYCIN 1,000 MG in DEXTROSE 5%-WATER - 250 ML IVPB ONE (20:54)
[2019-05-07] MEDS ORDERED: ACETAMINOPHEN INJECTION 100 ML IVPB ONE (20:55)
[2019-05-07] MEDS ORDERED: MEROPENEM 1 GM in DEXTROSE 5%-WATER 100 ML IVPB ONE (21:00)
[2019-05-07 21:07] LABS: PLATELET COUNT 216 K/MM3 (134-434)
[2019-05-07 21:08] LABS: PLATELET ESTIMATE ADEQUATE
[2019-05-07] MEDS ORDERED: MEROPENEM 1 GM VIAL (RESTRICTED TO ID) IVPB ONE (22:24)
[2019-05-07] MEDS ORDERED: VANCOMYCIN 1 GRAM (PRE-DOCKED) 1,000 MG/250 ML BAG IVPB ONE (22:56)
[2019-05-07 23:24] LABS: ALBUMIN 2.5 g/dl (3.4-5.0); BILIRUBIN,TOTAL 0.5 mg/dL (0.2-1); BLOOD UREA NITROGEN 11.4 mg/dL (7-18); CALCIUM 8.4 mg/dL (8.5-10.1); CREATININE 0.8 mg/dL (0.55-1.3); POTASSIUM 3.9 mmol/L (3.5-5.1); TOT PROT 5.8 g/dl (6.4-8.2)
[2019-05-08 02:09] VITALS: BP 114/55; PULSE 100
--- NOTE | 2019-05-09 17:05 | EKG ---
Test Reason : Blood Pressure : / mmHG Vent. Rate : 109 BPM Atrial Rate : 109 BPM P-R Int : 174 ms QRS Dur : 090 ms QT Int : 314 ms P-R-T Axes : 054 -22 073 degrees QTc Int : 422 ms SINUS TACHYCARDIA WITH OCCASIONAL PREMATURE VENTRICULAR COMPLEXES LOW VOLTAGE QRS CANNOT RULE OUT ANTERIOR INFARCT (CITED ON OR BEFORE 17-AUG-2018) ABNORMAL ECG WHEN COMPARED WITH ECG OF 19-FEB-2019 11:05, PREMATURE VENTRICULAR COMPLEXES ARE NOW PRESENT QUESTIONABLE CHANGE IN INITIAL FORCES OF SEPTAL LEADS Confirmed by JOHNY BAÑUELOS MD ([id number]) on 05/09/2019 5:05:05 PM Referred By: Confirmed By:JOHNY BAÑUELOS MD
== END 2019-05-07 23:50 | disposition short-term general hospital (02) ==
LOC: JER 17:01
DX: S09.8XXA Other specified injuries of head, initial encounter (principal); M25.551 Pain in right hip; R05 Cough; R29.6 Repeated falls; J44.9 Chronic obstructive pulmonary disease, unspecified; I10 Essential (primary) hypertension; E78.5 Hyperlipidemia, unspecified; Z86.73 Personal history of transient ischemic attack (TIA), and cerebral infarction without residual deficits; L97.421 Non-pressure chronic ulcer of left heel and midfoot limited to breakdown of skin; L97.321 Non-pressure chronic ulcer of left ankle limited to breakdown of skin; W18.39XA Other fall on same level, initial encounter; Y93.01 Activity, walking, marching and hiking; Y92.038 Other place in apartment as the place of occurrence of the external cause; Y99.8 Other external cause status; Z99.89 Dependence on other enabling machines and devices
CPT/HCPCS: 36415; 70450-TC; 71045-TC-FY; 72125-TC; 72170-TC-FY; 80053; 85025; 85610; 85730; 87040; 93005; 93010; 99284-25; J0131; J7030

== ENCOUNTER 2020-03-07 20:02 | Inpatient (IN) | payer OTHER, BC ==
[2020-03-07 20:12] VITALS: BMI 27.4
--- NOTE | 2020-03-07 20:31 | PDOC ---
Attending Attestation - Resident Resident Name: Irlanda Hernandez - ED Attending Attestation I have performed the following: I have examined & evaluated the patient, The case was reviewed & discussed with the resident, I agree w/resident's findings & plan - HPI HPI: 03/07/20 21:06 see resident hpi - Physicial Exam PE: 03/07/20 21:06 see resident exam - Medical Decision Making 03/07/20 21:06 84-year-old female with several weeks of failure to thrive recently told by PMD that she had low iron and high potassium according to son who is at the bedside She did have a fall as well for which she was not evaluated with injury to the right shoulder and head trauma involved Patient is nonambulatory at baseline but has worsened Plan for trauma/sepsis/syncope evaluation We will plan for admission pending results for further evaluation and possible placement Discharge - Discharge Information Problems reviewed: Yes Clinical Impression/Diagnosis: Failure to thrive, Fall, Open leg wound - Follow up/Referral Referrals: Lanie Teresa MD [Primary Care Provider] - - Patient Discharge Instructions - Post Discharge Activity
--- NOTE | 2020-03-07 21:17 | PDOC ---
History of Present Illness - General Chief Complaint: Weakness Stated Complaint: LETHARGY Time Seen by Provider: 03/07/20 20:31 History Source: Patient, Family (son) Exam Limitations: No Limitations - History of Present Illness Initial Comments: 03/07/20 22:06 84y F with PMH of HLD, HTN, TIA, chronic LE wounds presenting to the ER for lethargy for 2 weeks. Son noticed that patient has not been eating as much, has been weak. She had a fall 2 weeks ago, unwitnessed by son but no LOC. Son states that he went to the PMD last week, was told that patient was hyperkalemic and had low iron. Denies chest pain, back pain, dysuria, n/v/d, sick contacts, COVID contacts, travel, syncope, headache, numbness, focal weakness, headache. No recent surgeries. Pt has been taking Keflex in the past for cellulitis. Not on AC. PMD: Annabi PMH: see hpi Meds: see med rec Allergies: see allergy list Past History - Medical History Allergies/Adverse Reactions: Allergies Allergy/AdvReac Type Severity Reaction Status Date / Time amoxicillin [Amoxicillin] Allergy Verified 03/07/20 20:12 Penicillins Allergy Verified 03/07/20 20:12 silver sulfadiazine Allergy Verified 03/07/20 20:12 [From Silvadene] escitalopram AdvReac Intermediate Verified 03/07/20 20:12 levofloxacin [Levofloxacin] AdvReac Intermediate Verified 03/07/20 20:12 Home Medications: Ambulatory Orders Bacitracin - [Bacitracin Topical Ointment -] 1 applic TP DAILY #1 tube 06/20/16 Donepezil HCl [Aricept -] 5 mg PO DAILY #30 tablet 12/09/16 Atorvastatin Ca [Lipitor] 20 mg PO HS #30 tablet 08/23/18 Diltiazem Cd [Cardizem Cd -] 120 mg PO DAILY #30 cap.cd.24h 08/23/18 Docusate Sodium [Colace -] 300 mg PO HS #90 capsule 08/23/18 Gabapentin 300 mg PO BID #180 capsule 08/23/18 Levothyroxine [Synthroid -] 25 mcg PO DAILY@0700 #30 tablet 08/23/18 Montelukast Na [Singulair -] 10 mg PO HS #30 tablet 08/23/18 Nystatin Powder [Nystop Powder -] 60 gm TP BID #1 powder 08/23/18 Zinc Oxide 1 applic TP BID #1 tube 08/23/18 Acetaminophen [Tylenol .Regular Strength -] 325 mg PO Q8H PRN tablet 02/23/19 Alprazolam [Xanax] 1 mg PO Q12H PRN tablet MDD 2 02/23/19 Heparin - 5,000 unit SQ BID vial 02/23/19 oxyCODONE HCL [Roxicodone -] 5 mg PO Q8H PRN tablet MDD 3 02/23/19 Anemia: No Asthma: No Cancer: No Cardiac Disorders: No CVA: No COPD: Yes CHF: No Dementia: No Diabetes: No GI Disorders: No Disorders: Yes (uti) HTN: Yes Hypercholesterolemia: Yes Liver Disease: No Seizures: No Thyroid Disease: No - Surgical History Abdominal Surgery: No Cardiac Surgery: No Cholecystectomy: Yes Lung Surgery: No Neurologic Surgery: No - Immunization History Td Vaccination: Yes TDAP Vaccination: Yes Immunization Up to Date: Yes - Psycho-Social/Smoking History Smoking Status: Yes Smoking History: Never smoked Years of Tobacco Use: 0 Have you smoked in the past 12 months: No Number of Cigarettes Smoked Daily: 20 If you are a former smoker, when did you quit?: 2016 Cigars Per Day: 0 'Breaking Loose' booklet given: 11/23/15 - Substance Abuse Hx (Audit-C & DAST Scrn) How often the patient has a drink containing alcohol: Never Score: In Men: 4 or > Positive; In Women: 3 or > Positive: 0 Screen Result (Pos requires Nsg. Audit-10AR): Negative In the last yr the pt used illegal drug/Rx for NonMed reason: No Score: Yes response is considered Positive: 0 Screen Result (Positive result requires Nsg. DAST-10): Negative Review of Systems - Review of Systems Constitutional: Yes: Loss of Appetite, Malaise, Weakness. No: Fever HEENTM: No: Symptoms Reported Respiratory: Yes: Cough Cardiac (ROS): No: Symptoms Reported ABD/GI: No: Symptoms Reported : No: Symptoms Reported Musculoskeletal: No: Symptoms Reported Integumentary: No: Symptoms Reported Neurological: No: Symptoms reported *Physical Exam - Vital Signs Last Vital Signs Temp Pulse Resp BP Pulse Ox 98.1 F 98 H 22 H 118/79 98 03/07/20 20:10 03/07/20 20:10 03/07/20 20:10 03/07/20 20:10 03/07/20 20:10 - Physical Exam General Appearance: Yes: Nourished, Appropriately Dressed. No: Apparent Distress HEENT: positive: EOMI, FARRUKH, Normal ENT Inspection Neck: positive: Trachea midline, Supple Respiratory/Chest: positive: Labored Respiration, Rhonchi, Other (upper airway sounds). negative: Chest Tender, Respiratory Distress, Rapid RR, Stridor Cardiovascular: positive: Regular Rhythm, Regular Rate, S1, S2. negative: Edema, JVD, Murmur Vascular Pulses: Dorsalis-Pedis (R): 2+, Doralis-Pedis (L): 2+ Gastrointestinal/Abdominal: positive: Normal Bowel Sounds, Soft. negative: Tender Musculoskeletal: positive: Other (sacral decubitus ulcers, no active infection. ). negative: CVA Tenderness, Decreased Range of Motion, Vertebral Tenderness Extremity: positive: Normal Capillary Refill, Erythema (to L distal LE, with old wound, no drainage. erythematous, warm, indurated. ). negative: Calf Tenderness Integumentary: positive: Normal Color, Dry, Warm. 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 NML intact, Fully Oriented, Alert, Normal Mood/Affect, Normal Response, Motor Strength 5/5 ED Treatment Course - LABORATORY CBC & Chemistry Diagram: 03/07/20 21:25 03/07/20 21:25 - RADIOLOGY Radiology Studies Ordered: Category Date Time Status CERVICAL SPINE CT W/O CONTR [CT] Stat CT Scan 03/07/20 20:[address] WITHOUT CONTRAST [CT] Stat CT Scan 03/07/20 20:37 Ordered CHEST X-RAY PORTABLE* [RAD] Stat Radiology 03/07/20 20:33 Ordered PELVIS [RAD] Stat Radiology 03/07/20 20:38 Ordered Medical Decision Making - Medical Decision Making 03/08/20 06:50 84y F with PMH of COPD, HTN presenting to the ER for weakness and fatigue. pt requiring supplemental oxgyen, increased rr, relatively hypotensive. ddx includes sepsis, pna, ptx, acs, chf, copd exacerbation, cellulitis, uti. -sepsis w/u. -gentle hydration -cefepine/vanc for cellulitis. ekg; no changes from prior ekg, no acute ischemia cxr appers to show fibrotic changes, no new interval changes from prior labs show leukocytosis 24, hgb baseline. electrolytes wnl. vbg shows acute on chronic hyperacapnea. likley copd exacerbation. will admit for cellulitis, iv abx. Discharge - Discharge Information Problems reviewed: Yes Clinical Impression/Diagnosis: Failure to thrive Qualifiers: Failure to thrive age range: in adult Qualified Code(s): R62.7 - Adult failure to thrive Fall Qualifiers: Encounter type: initial encounter Qualified Code(s): W19.XXXA - Unspecified f all, initial encounter Open leg wound Qualifiers: Encounter type: initial encounter Laterality: left Qualified Code(s): S81.802A - Unspecified open wound, left lower leg, initial encounter Cellulitis Qualifiers: Site of cellulitis: extremity Site of cellulitis of extremity: lower extremity Laterality: left Qualified Code(s): L03.116 - Cellulitis of left lower limb Condition: Stable - Admission Yes - Follow up/Referral - Patient Discharge Instructions - Post Discharge Activity
[2020-03-07] MEDS ORDERED: VANCOMYCIN 1 GM in D5W (PRE-DOCKED) 1,000 MG/250 ML IVPB ONE (21:20)
[2020-03-07] MEDS ORDERED: CEFEPIME HCL/D5W 1 GM/50 ML BAG IVPB ONE (21:20)
[2020-03-07 21:40] LABS: BASO % 0.2 % (0-2.0); EOS % 0.1 % (0-4.5); HEMOGLOBIN 12.3 GM/dL (10.7-15.3); LYMPH % 1.2 % (8-40); MCH 29.7 pg (25.7-33.7); MCHC 30.7 g/dl (32.0-36.0); MEAN CELL VOLUME 96.7 fl (80-96); MONO % 4.4 % (3.8-10.2); NEUT % 94.1 % (42.8-82.8); PLATELET COUNT 398 K/MM3 (134-434); RBC 4.14 M/mm3 (3.60-5.2); RDW 15.5 % (11.6-15.6); VENOUS O2 SATURATION 42.3 % (70-80); VENOUS PH 7.241 (7.310-7.410); WHITE BLOOD COUNT 24.6 K/mm3 (4.0-10.0)
[2020-03-07 21:41] LABS: URINE APPEARANCE CLEAR; URINE BILIRUBIN NEGATIVE (NEGATIVE); URINE COLOR YELLOW; URINE GLUCOSE (UA) NEGATIVE (NEGATIVE); URINE KETONE NEGATIVE (NEGATIVE); URINE LEUK ESTERASE NEGATIVE (NEGATIVE); URINE NITRITE NEGATIVE (NEGATIVE); URINE PROTEIN TRACE (NEGATIVE)
[2020-03-07 21:42] LABS: VENOUS PCO2 75.4 mmHg (38-52)
[2020-03-07 21:50] LABS: INR 1.45 (0.83-1.09); PROTHROMBIN TIME (PATIENT) 17.2 SEC (9.7-13.0)
[2020-03-07 21:52] LABS: ACTIVATED PTT 29.5 SECONDS (25.2-36.5)
[2020-03-07] MEDS ORDERED: SODIUM CHLORIDE 1,000 ML IV STA (22:05)
[2020-03-07] MEDS ORDERED: CEFEPIME 1 GM/100 ML BAG IVPB ONE (22:11)
[2020-03-07] MEDS ORDERED: VANCOMYCIN 1 GRAM (PRE-DOCKED) 1,000 MG/250 ML BAG IVPB ONE (22:11)
[2020-03-07 22:15] LABS: ALBUMIN 2.5 g/dl (3.4-5.0); ALK PHOS 119 U/L (45-117); ANION GAP 8 MMOL/L (8-16); BILIRUBIN,TOTAL 0.5 mg/dL (0.2-1); BLOOD UREA NITROGEN 13.7 mg/dL (7-18); CALCIUM 9.4 mg/dL (8.5-10.1); CHLORIDE 97 mmol/L (98-107); CO2 33 mmol/L (21-32); CREATININE 0.9 mg/dL (0.55-1.3); GLUCOSE,RANDOM 113 mg/dL (74-106); MAGNESIUM 2.3 mg/dL (1.8-2.4); SGOT/AST 13 U/L (15-37); SGPT/ALT 10 U/L (13-61); SODIUM 138 mmol/L (136-145); TOT PROT 7.6 g/dl (6.4-8.2)
--- NOTE | 2020-03-07 22:59 | HP ---
Admitting History and Physical - Primary Care Physician PCP: Lanie Teresa - Admission Chief Complaint: Lethargy, Weakness, Chronic LLE wound History of Present Illness: 84y F with PMH of HLD, HTN, TIA, chronic LE wounds presenting to the ER for lethargy for 2 weeks. Son noticed that patient has not been eating as much, has been weak. She had a fall 2 weeks ago, unwitnessed by son but no LOC. Son states that he went to the PMD last week, was told that patient was hyperkalemic and had low iron. Denies chest pain, back pain, dysuria, n/v/d, sick contacts, COVID contacts, travel, syncope, headache, numbness, focal weakness, headache. 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 Cardiovascular: Yes: HTN, Hyperlipdemia Pulmonary: Yes: COPD Gastrointestinal: Yes: GERD Musculoskeletal: Yes: Chronic low back pain Endocrine: Yes: Hypothyroidism - Past Surgical History Past Surgical History: Yes: Cholecystectomy - Smoking History Smoking history: Former smoker Have you smoked in the past 12 months: No Aproximately how many cigarettes per day: 20 If you are a former smoker, when did you quit?: 2016 - Alcohol/Substance Use Hx Alcohol Use: No History of Substance Use: reports: None - Social History Usual Living Arrangement: Yes: Alone ADL: Support Services History of Recent Travel: No Home Medications - Allergies Allergies/Adverse Reactions: Allergies Allergy/AdvReac Type Severity Reaction Status Date / Time amoxicillin [Amoxicillin] Allergy Verified 03/07/20 20:12 Penicillins Allergy Verified 03/07/20 20:12 silver sulfadiazine Allergy Verified 03/07/20 20:12 [From Silvadene] escitalopram AdvReac Intermediate Verified 03/07/20 20:12 levofloxacin [Levofloxacin] AdvReac Intermediate Verified 03/07/20 20:12 - Home Medications Home Medications: Ambulatory Orders Bacitracin - [Bacitracin Topical Ointment -] 1 applic TP DAILY #1 tube 06/20/16 Donepezil HCl [Aricept -] 5 mg PO DAILY #30 tablet 12/09/16 Atorvastatin Ca [Lipitor] 20 mg PO HS #30 tablet 08/23/18 Diltiazem Cd [Cardizem Cd -] 120 mg PO DAILY #30 cap.cd.24h 08/23/18 Docusate Sodium [Colace -] 300 mg PO HS #90 capsule 08/23/18 Gabapentin 300 mg PO BID #180 capsule 08/23/18 Levothyroxine [Synthroid -] 25 mcg PO DAILY@0700 #30 tablet 08/23/18 Montelukast Na [Singulair -] 10 mg PO HS #30 tablet 08/23/18 Nystatin Powder [Nystop Powder -] 60 gm TP BID #1 powder 08/23/18 Zinc Oxide 1 applic TP BID #1 tube 08/23/18 Acetaminophen [Tylenol .Regular Strength -] 325 mg PO Q8H PRN tablet 02/23/19 Alprazolam [Xanax] 1 mg PO Q12H PRN tablet MDD 2 02/23/19 Heparin - 5,000 unit SQ BID vial 02/23/19 oxyCODONE HCL [Roxicodone -] 5 mg PO Q8H PRN tablet MDD 3 02/23/19 Family Medical History Family History: Unable to Obtain Review of Systems Unable to obtain ROS, reason: Clinical Condition Physical Examination Vital Signs: Vital Signs Temperature 98.1 F 03/07/20 20:10 Pulse Rate 98 H 03/07/20 20:10 Respiratory Rate 22 H 03/07/20 20:10 Blood Pressure 118/79 03/07/20 20:10 O2 Sat by Pulse Oximetry (%) 98 03/07/20 20:10 Constitutional: Yes: No Distress, Calm Eyes: Yes: Conjunctiva Clear, EOM Intact, PERRL HENT: Yes: Atraumatic, Normocephalic Neck: Yes: Supple, Trachea Midline Cardiovascular: Yes: Regular Rate and Rhythm, S1, S2 Respiratory: Yes: Diminished, On Nasal O2, SOB on Exertion Gastrointestinal: Yes: Normal Bowel Sounds, Soft. No: Tenderness, Tenderness, Epigastrium Renal/: Yes: Incontinence Breast(s): Yes: WNL Musculoskeletal: Yes: Muscle Weakness Extremities: Yes: Erythema Edema: No Peripheral Pulses WNL: Yes Integumentary: Yes: Erythema (LLE, sacrum, left gluteal), Pressure Ulcer (sacrum, left gluteal) Wound/Incision: Yes: Reddened (LLE), Other (duane to sacrum, left gluteal) Neurological: Yes: Alert Psychiatric: Yes: Alert Labs: CBC, BMP 03/07/20 21:25 03/07/20 21:25 Laboratory Results - last 24 hr 03/07/20 03/07/20 03/07/20 21:25 21:25 21:25 WBC RBC Hgb Hct MCV MCH MCHC RDW Plt Count MPV Absolute Neuts (auto) Neutrophils % Lymphocytes % Monocytes % Eosinophils % Basophils % Nucleated RBC % PT with INR INR PTT (Actin FS) VBG pH POC VBG pCO2 POC VBG pO2 VBG HCO3 VBG O2 Sat (Praveen) VBG Base Excess Sodium Potassium Chloride Carbon Dioxide Anion Gap BUN Creatinine Est GFR (CKD-EPI)AfAm Est GFR (CKD-EPI)NonAf Random Glucose Lactic Acid 1.0 Calcium Magnesium Total Bilirubin AST ALT Alkaline Phosphatase Creatine Kinase Troponin I Total Protein Albumin TSH 0.64 Free T4 Urine Color Urine Appearance Urine pH Ur Specific [place] Urine Protein Urine Glucose (UA) Urine Ketones Urine Blood Urine Nitrite Urine Bilirubin Urine Urobilinogen Ur Leukocyte Esterase Blood Type O POSITIVE Antibody Screen Negative 03/07/20 03/07/20 03/07/20 21:25 21:25 21:25 WBC 24.6 H RBC 4.14 Hgb 12.3 Hct 40.0 MCV 96.7 H MCH 29.7 MCHC 30.7 L RDW 15.5 Plt Count 398 D MPV 8.0 D Absolute Neuts (auto) 23.2 H Neutrophils % 94.1 H Lymphocytes % 1.2 L D Monocytes % 4.4 Eosinophils % 0.1 Basophils % 0.2 Nucleated RBC % 0 PT with INR 17.20 H INR 1.45 H PTT (Actin FS) 29.5 VBG pH POC VBG pCO2 POC VBG pO2 VBG HCO3 VBG O2 Sat (Praveen) VBG Base Excess Sodium Potassium Chloride Carbon Dioxide Anion Gap BUN Creatinine Est GFR (CKD-EPI)AfAm Est GFR (CKD-EPI)NonAf Random Glucose Lactic Acid Calcium Magnesium Total Bilirubin AST ALT Alkaline Phosphatase Creatine Kinase Troponin I Total Protein Albumin TSH Free T4 Urine Color Yellow Urine Appearance Clear Urine pH 5.0 D Ur Specific [place] 1.016 Urine Protein Trace Urine Glucose (UA) Negative Urine Ketones Negative Urine Blood Negative Urine Nitrite Negative Urine Bilirubin Negative Urine Urobilinogen 1.0 Ur Leukocyte Esterase Negative Blood Type Antibody Screen 03/07/20 03/07/20 21:25 21:25 WBC RBC Hgb Hct MCV MCH MCHC RDW Plt Count MPV Absolute Neuts (auto) Neutrophils % Lymphocytes % Monocytes % Eosinophils % Basophils % Nucleated RBC % PT with INR INR PTT (Actin FS) VBG pH 7.241 L POC VBG pCO2 75.4 H* POC VBG pO2 28.6 VBG HCO3 31.7 H VBG O2 Sat (Praveen) 42.3 L VBG Base Excess 2.0 Sodium 138 Potassium 5.0 Chloride 97 L Carbon Dioxide 33 H Anion Gap 8 BUN 13.7 Creatinine 0.9 Est GFR (CKD-EPI)AfAm 68.05 Est GFR (CKD-EPI)NonAf 58.71 Random Glucose 113 H Lactic Acid Calcium 9.4 Magnesium 2.3 Total Bilirubin 0.5 AST 13 L ALT 10 L Alkaline Phosphatase 119 H Creatine Kinase 16 L Troponin I < 0.02 Total Protein 7.6 Albumin 2.5 L TSH Free T4 1.22 Urine Color Urine Appearance Urine pH Ur Specific [place] Urine Protein Urine Glucose (UA) Urine Ketones Urine Blood Urine Nitrite Urine Bilirubin Urine Urobilinogen Ur Leukocyte Esterase Blood Type Antibody Screen Intake & Output 03/04/20 03/05/20 03/06/20 03/07/20 23:59 23:59 23:59 23:59 Weight 72.575 kg [facility] Prescription Monitoring Program (ISTOP) Others' Prescriptions Patient Name: Mira Vasquez Date: 1935 Address: [address] [place] [address] Sex: Female Rx Written Rx Dispensed Drug Quantity Days Supply Prescriber Name Payment Method Dispenser 01/18/2020 01/21/2020 BUPRENORPHINE 20 MCG/HR PATCH 4 28 Marleni Miranda MD Medicare [employer] Date: 1935 Address: [address] [place] [address] Sex: Female Rx Written Rx Dispensed Drug Quantity Days Supply Prescriber Name Payment Method Dispenser 04/27/2019 04/27/2019 alprazolam 0.5 mg tablet 14 14 Anand, Anurag Medicare [employer] 04/23/2019 04/23/2019 oxycodone-acetaminophen 7.5-325 mg tablet 42 14 Anand, Anurag [employer] 04/16/2019 04/16/2019 alprazolam 0.5 mg tablet 14 14 Anand, Anurag Medicare [employer] 04/12/2019 04/12/2019 alprazolam 1 mg tablet 30 30 Johnson, Anurag Medicare [employer] 03/30/2019 04/05/2019 alprazolam 0.5 mg tablet 14 14 Johnson, Anurag Medicare [employer] 03/25/2019 04/05/2019 oxycodone-acetaminophen 7.5-325 mg tablet 42 14 Johnson, Anurag [employer] 03/30/2019 03/30/2019 alprazolam 1 mg tablet 14 14 Johnson, Anurag Medicare [employer] 03/25/2019 03/25/2019 oxycodone-acetaminophen 7.5-325 mg tablet 42 14 Johnson, Anurag [employer] 03/22/2019 03/22/2019 alprazolam 0.5 mg tablet 14 14 Johnson, Anurag Medicare [employer] Imaging - Results Chest X-ray: Report Reviewed, Image Reviewed X-ray: Report Reviewed, Image Reviewed Cat Scan: Report Reviewed, Image Reviewed EKG: Image Reviewed Problem List - Problems (1) Acute on chronic respiratory failure with hypoxia and hypercapnia Assessment/Plan: Likely secondary to Sepsis vs Pneumonia vs Aspiration vs Medication Chest Xray image- vascular congestion, cardiomegaly VBG: ph 7.24, pCo2 75.4 ABG shows- ph 7.308, pCo2 78.5- respiratory acidosis w/hypercapnia Will place on Bipap and titrate based on ABG Appreciate Pulmonology consult Monitor vitals Code(s): J96.21 - ACUTE AND CHRONIC RESPIRATORY FAILURE WITH HYPOXIA; J96.22 - ACUTE AND CHRONIC RESPIRATORY FAILURE WITH HYPERCAPNIA (2) Sepsis Assessment/Plan: Likely due to Cellulitis vs Pressure Ulcers Sepsis Criteria met: WBC 24.6 with L- shift Blood Cultures-pending Urine Cultures-pending Appreciate ID consult Cefepmie, Vancomycin initiated in ED will continue Monitor CBC Monitor vitals Maintain MAP > 65 Code(s): A41.9 - SEPSIS, UNSPECIFIED ORGANISM (3) Cellulitis Assessment/Plan: Appreciate vascular consult Appreciate ID consult WBC 24 Monitor CBC Continue Cefepime, Vancomycin Monitor vitals Code(s): L03.90 - CELLULITIS, UNSPECIFIED Qualifiers: Site of cellulitis: extremity Site of cellulitis of extremity: lower extremity Laterality: left Qualified Code(s): L03.116 - Cellulitis of left lower limb (4) Generalized weakness Assessment/Plan: Likely due to Dehydration vs medication Head CT- no ICH Hip/Pelvis Xray-reviewed PT eval Fall Precautions Monitor CBC, CMP Monitor vitals Code(s): R53.1 - WEAKNESS (5) COPD (chronic obstructive pulmonary disease) Assessment/Plan: VBG- hypercapnia Will obtain ABG Bipap as indicated Chest Xray reviewed O2 Albuterol neb Appreciate Pulm consult Code(s): J44.9 - CHRONIC OBSTRUCTIVE PULMONARY DISEASE, UNSPECIFIED (6) HLD (hyperlipidemia) Assessment/Plan: stable Continue home med Monitor LFTs Code(s): E78.5 - HYPERLIPIDEMIA, UNSPECIFIED (7) HTN (hypertension) Assessment/Plan: stable Monitor BP Continue home med Code(s): I10 - ESSENTIAL (PRIMARY) HYPERTENSION (8) Hypothyroid Assessment/Plan: Continue Synthyroid TSH 0.64 Code(s): E03.9 - HYPOTHYROIDISM, UNSPECIFIED Assessment/Plan 84y F with PMH of HLD, HTN, TIA, chronic LE wounds. Admitted to Telemetry for Acute Respiratory Failure with Hypercapnia, Cellulitis, Generalized Weakness for further evaluation of their emergent condition. Plan: See Problem List FEN PO fluids as tolerated Replete lytes prn Low Na Diet DVT ppx OOB Heparin SQ Dispo: Requires Inpatient Care Visit type - Emergency Visit Emergency Visit: Yes ED Registration Date: 03/07/20 Care time: The patient presented to the Emergency Department on the above date and was hospitalized for further evaluation of their emergent condition. - New Patient This patient is new to me today: Yes Date on this admission: 03/07/20 - Critical Care Critical Care patient: No
[2020-03-07 23:11] LABS: ANISOCYTOSIS 1+; MACROCYTOSIS 1+
[2020-03-07 23:20] LABS: PLATELET ESTIMATE ADEQUATE
[2020-03-08 00:25] LABS: ARTERIAL BLD GAS O2 SATURATION 94.2 mmHg (95-98); ARTERIAL BLOOD GAS BASE EXCESS 2.8 mmol/L (-2-2); ARTERIAL BLOOD GAS PO2 78.5 mmHg (80-100); ARTERIAL BLOOD GAS pH 7.308 (7.350-7.450)
[2020-03-08 00:27] LABS: ALLENS TEST POSITIVE
[2020-03-08] MEDS ORDERED: ACETAMINOPHEN 1000 MG/100 ML VIAL (NON FORMULARY) IVPB ONE (07:01)
[2020-03-08] MEDS ORDERED: ACETAMINOPHEN INJECTION 100 ML IVPB ONE (07:18)
[2020-03-08] MEDS ORDERED: LEVOTHYROXINE NA 25 MCG TABLET (FP) ONE (07:18)
[2020-03-08 07:26] LABS: BASO % 0.2 % (0-2.0); EOS % 0.4 % (0-4.5); HEMATOCRIT 36.6 % (32.4-45.2); HEMOGLOBIN 11.2 GM/dL (10.7-15.3); LYMPH % 2.2 % (8-40); MCH 29.1 pg (25.7-33.7); MCHC 30.7 g/dl (32.0-36.0); MEAN CELL VOLUME 94.8 fl (80-96); MEAN PLT VOLUME 7.6 fl (7.5-11.1); MONO % 4.9 % (3.8-10.2); NEUT % 92.3 % (42.8-82.8); PLATELET COUNT 388 K/MM3 (134-434); RBC 3.87 M/mm3 (3.60-5.2); RDW 15.4 % (11.6-15.6); WHITE BLOOD COUNT 21.3 K/mm3 (4.0-10.0)
[2020-03-08] MEDS: LEVOTHYROXINE NA 25 MCG TABLET (FP) PO SCH (07:26)
[2020-03-08 07:46] LABS: ALBUMIN 2.2 g/dl (3.4-5.0); BILIRUBIN,TOTAL 0.9 mg/dL (0.2-1); BLOOD UREA NITROGEN 12.4 mg/dL (7-18); CALCIUM 8.8 mg/dL (8.5-10.1); CREATININE 0.8 mg/dL (0.55-1.3); MAGNESIUM 2.2 mg/dL (1.8-2.4); PHOSPHOROUS 3.1 mg/dL (2.5-4.9); POTASSIUM 4.6 mmol/L (3.5-5.1); TOT PROT 6.9 g/dl (6.4-8.2)
--- NOTE | 2020-03-08 08:52 | CONSULT ---
- Consultation REQUESTING PROVIDER: Arsh Medeiros - Wound Care/Surgery CONSULT REQUEST: We have been asked to surgically evaluate this patient for Left randle wound PCP: Lanie Teresa History Source: Medical Chart Limitations to Obtaining History: Clinical Condition HPI: Called to enrike 84 yo patient with PMHx as noted below for wound to left randle s/p mechanical fall 2 weeks ago while ambulating with her walker. PMHx: HLD, HTN, TIA, chronic LE wounds,COPD, Chronic LBP, Hypothyroidism PSHx: Cholecystectomy Home Meds Bacitracin - [Bacitracin Topical Ointment -] 1 applic TP DAILY #1 tube 06/20/16 Donepezil HCl [Aricept -] 5 mg PO DAILY #30 tablet 12/09/16 Atorvastatin Ca [Lipitor] 20 mg PO HS #30 tablet 08/23/18 Diltiazem Cd [Cardizem Cd -] 120 mg PO DAILY #30 cap.cd.24h 08/23/18 Docusate Sodium [Colace -] 300 mg PO HS #90 capsule 08/23/18 Gabapentin 300 mg PO BID #180 capsule 08/23/18 Levothyroxine [Synthroid -] 25 mcg PO DAILY@0700 #30 tablet 08/23/18 Montelukast Na [Singulair -] 10 mg PO HS #30 tablet 08/23/18 Nystatin Powder [Nystop Powder -] 60 gm TP BID #1 powder 08/23/18 Zinc Oxide 1 applic TP BID #1 tube 08/23/18 Acetaminophen [Tylenol .Regular Strength -] 325 mg PO Q8H PRN tablet 02/23/19 Alprazolam [Xanax] 1 mg PO Q12H PRN tablet MDD 2 02/23/19 Heparin - 5,000 unit SQ BID vial 02/23/19 oxyCODONE HCL [Roxicodone -] 5 mg PO Q8H PRN tablet MDD 3 02/23/19 Allergies: PCNs. Silvadene. Escitalopram. Levofloxacin ROS: 12 system review conducted and considered negative except for what's contained in the HPI. PE: GEN: Awake, alert, in no acute distress. LE: LLE with old wound about just distal to tibial tuburcle in a transverse fashion. No purulent drainage. Mild periwound erythema but no signs of nahum infection. 2+ pulses, warm, well-perfused. No calf tenderness. No peripheral edema. BACK: sacral decubitus ulcers clean. Last Vital Signs Temp Pulse Resp BP Pulse Ox 98.0 F 85 22 H 106/46 L 93 L 03/08/20 06:58 03/08/20 06:58 03/08/20 06:58 03/08/20 06:58 03/08/20 08:00 CBC, BMP 03/08/20 06:45 03/08/20 06:00 INR, PTT INR 1.45 (0.83-1.09) H 03/07/20 21:25 Urine Test Results Urine Color Yellow 03/07/20 21:25 Urine Appearance Clear 03/07/20 21:25 Urine pH 5.0 (5.0-8.0) D 03/07/20 21:25 Ur Specific [place] 1.016 (1.010-1.035) 03/07/20 21:25 Urine Protein Trace (NEGATIVE) 03/07/20 21:25 Urine Glucose (UA) Negative (NEGATIVE) 03/07/20 21:25 Urine Ketones Negative (NEGATIVE) 03/07/20 21:25 Urine Blood Negative (NEGATIVE) 03/07/20 21:25 Urine Nitrite Negative (NEGATIVE) 03/07/20 21:25 Urine Bilirubin Negative (NEGATIVE) 03/07/20 21:25 Ur Leukocyte Esterase Negative (NEGATIVE) 03/07/20 21:25 Problem List - Problems (1) Open leg wound Assessment/Plan: -Wash with warm soapy water. -Apply bacitracin to wound and cover with dry dressing daily. -Continue antibiotics per ID/medical team -Elevate the lower extremity above the level of the heart at all times while at rest -f/u in [facility] upon discharge for continued care -reconsult prn Above plan discussed with Dr. Medeiros and agrees. Code(s): S81.809A - UNSPECIFIED OPEN WOUND, UNSPECIFIED LOWER LEG, INIT ENCNTR Qualifiers: Encounter type: initial encounter Laterality: left Qualified Code(s): S81.802A - Unspecified open wound, left lower leg, initial encounter (2) Accidental fall Code(s): W19.XXXA - UNSPECIFIED FALL, INITIAL ENCOUNTER Qualifiers: Encounter type: initial encounter Qualified Code(s): W19.XXXA - Unspecified fall, initial encounter (3) Anxiety Code(s): F41.9 - ANXIETY DISORDER, UNSPECIFIED (4) COPD (chronic obstructive pulmonary disease) Code(s): J44.9 - CHRONIC OBSTRUCTIVE PULMONARY DISEASE, UNSPECIFIED (5) HLD (hyperlipidemia) Code(s): E78.5 - HYPERLIPIDEMIA, UNSPECIFIED (6) HTN (hypertension) Code(s): I10 - ESSENTIAL (PRIMARY) HYPERTENSION (7) LBP (low back pain) Code(s): M54.5 - LOW BACK PAIN Qualifiers: Chronicity: chronic Visit type - Case Type Case Type: ED Admission - Emergency Emergency Visit: Yes ED Registration Date: 03/07/20 Care time: The patient presented to the Emergency Department on the above date and was hospitalized for further evaluation of their emergent condition. - New patient This patient is new to me today: Yes Date on this admission: 03/08/20
--- NOTE | 2020-03-08 10:40 | EKG ---
Test Reason : Blood Pressure : / mmHG Vent. Rate : 090 BPM Atrial Rate : 090 BPM P-R Int : 176 ms QRS Dur : 096 ms QT Int : 344 ms P-R-T Axes : 059 -34 064 degrees QTc Int : 420 ms NORMAL SINUS RHYTHM LEFT AXIS DEVIATION SEPTAL INFARCT (CITED ON OR BEFORE 17-AUG-2018) ABNORMAL ECG WHEN COMPARED WITH ECG OF 07-MAY-2019 17:24, PREMATURE VENTRICULAR COMPLEXES ARE NO LONGER PRESENT QUESTIONABLE CHANGE IN INITIAL FORCES OF ANTEROSEPTAL LEADS Confirmed by MD Daniele, Vamsi ([id number]) on 03/08/2020 10:39:47 AM Referred By: Confirmed By:Vamsi Sanabria MD
[2020-03-08 11:02] LABS: ANISOCYTOSIS 1+; MACROCYTOSIS 0; PLATELET ESTIMATE NORMAL
--- NOTE | 2020-03-08 11:20 | PN ---
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 (short form) - Note 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: ID consult dictated 84 yo female lives in a senior building sent to ED with lethargy and weakness leukocytosis hypoxia cannot r/o pneumonia doubt cellulitis/oopen leg wound cultures urinary antigen covid pcr rocephin/zithromax for CAP wound care management per surgery Problem List - Problems (1) Leukocytosis Code(s): D72.829 - ELEVATED WHITE BLOOD CELL COUNT, UNSPECIFIED (2) Pneumonia Code(s): J18.9 - PNEUMONIA, UNSPECIFIED ORGANISM (3) Open leg wound Code(s): S81.809A - UNSPECIFIED OPEN WOUND, UNSPECIFIED LOWER LEG, INIT ENCNTR Qualifiers: Encounter type: initial encounter Laterality: left Qualified Code(s): S81.802A - Unspecified open wound, left lower leg, initial encounter (4) Allergy to multiple antibiotics Code(s): Z88.1 - ALLERGY STATUS TO OTHER ANTIBIOTIC AGENTS STATUS
[2020-03-08] MEDS ORDERED: BACITRACIN 0.9 GM PACKET ONE (12:07)
--- NOTE | 2020-03-08 12:57 | PN ---
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, Physician Chief Complaint: Lethargy Generalized weakness History of Present Illness: NAD, lethargic, well known to me from the office. Pt was seen my office 2 weeks ago, with c/o lethargy and decreased appetite, pt was encouraged to go to the hospital, however, pt and son refused at that time. Labs drawn in the office 2 weeks ago showed hyperkalemia with K of 6.0, otherwise unremarkable. Pt's son was again instructed to take pt to the hospital. Pt had an unwitnessed fall 2 weeks prior to that which caused mild laceration on her left randle. Pt is severely arthritic, mainly stays in a wheelchair. She sits on a chair at home in the same position for most of the day,which had led to pressure ulcers BL interior aspect of her buttocks. Pt's son was provided with wound care instructions and started on cephalexin po and was also seen by Wound care Physician Vamsi Zaldivar MD at home who also prescribed her topical gentamicin for wound care + allevyn dressing. Pt was highly encouraged to stay off the chair and may be sit in a recliner at home. Pt lives at home alone, son visits her daily. 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 She takes her own medications. Son does meal prep for the pt. Pt takes Oxycodone 5 mg QID PRN for chronic arthritic pain+ Alprazolam 0.5 mg po BID PRN for anxiety. Pt c/o mild SOB upon questioning, which is not her baseline. Concern for aspiration pneumonia given recent change in mental state. She is AxO x 3 with garbled but comprehensible speech. RN notifies pt was coughing when given thin fluids earlier. - Current Medication List Current Medications: Active Medications Atorvastatin Calcium (Lipitor -) 20 mg PO HS RICK Diltiazem HCl (Cardizem Cd -) 120 mg PO DAILY IRCK Last Admin: 03/08/20 09:30 Dose: Not Given Documented by: Donepezil HCl (Aricept -) 5 mg PO HS RICK Vancomycin HCl (Vancomycin (Pre-Docked)) 1,000 mg in 250 mls @ 166.667 mls/hr IVPB Q24H RICK; Protocol Vancomycin HCl (Vancomycin (Pre-Docked)) 1,000 mg in 250 mls @ 166.667 mls/hr IVPB ONCE ONE; Protocol Stop: 03/08/20 23:29 Levothyroxine Sodium (Synthroid -) 25 mcg PO DAILY@0700 [facility] Last Admin: 03/08/20 07:26 Dose: 25 mcg Documented by: Montelukast Sodium (Singulair -) 10 mg PO [facility] - Objective Vital Signs: Vital Signs Temperature 98.0 F 03/08/20 06:58 Pulse Rate 85 03/08/20 06:58 Respiratory Rate 22 H 03/08/20 06:58 Blood Pressure 106/46 L 03/08/20 06:58 O2 Sat by Pulse Oximetry (%) 93 L 03/08/20 08:00 Constitutional: Yes: Well Nourished, No Distress, Calm Cardiovascular: Yes: Tachycardia Respiratory: Yes: Regular, Rhonchi (diffuse), SOB, Other (On NRB) Gastrointestinal: Yes: Normal Bowel Sounds, Soft Genitourinary: Yes: Incontinence Musculoskeletal: Yes: Muscle Weakness Extremities: Yes: Erythema (BLLE chronic vascular changes) Edema: No Peripheral Pulses WNL: No Peripheral Pulses: Left Doralis Pedis: 1+, Right Dorsalis Pedis: 1+ Integumentary: Yes: Erythema (BLLE), Pressure Ulcer (BL buttock, left randle), Venous Stasis Changes (BLLE) Wound/Incision: Yes: Dressing Dry and Intact (BLLE) Neurological: Yes: Alert, Oriented, Lethargy Psychiatric: Yes: Alert, Oriented Labs: CBC, BMP 03/08/20 06:45 03/08/20 06:00 INR, PTT INR 1.45 (0.83-1.09) H 03/07/20 21:25 Problem List - Problems (1) Failure to thrive Assessment/Plan: -NPO excpet medications crushed with apple sauce -Speech apthology consult -Goals of care discussed with son Nomi, wants mother to be DNR/DNI -Palliative care consult Problems reviewed: Yes Code(s): [id number] - Qualifiers: Failure to thrive age range: in adult Qualified Code(s): R62.7 - Adult failure to thrive (2) Generalized weakness Assessment/Plan: -Likely 2/2 to acute metabolic encephalopathy -PT -Hold of any sedatives Problems reviewed: Yes Code(s): R53.1 - WEAKNESS (3) Pneumonia Assessment/Plan: -ID + Pulmonary consult -CXR reviewed -COVID 19 PCR pending -Afebrile -IV abx -Aspirations precautions -Speech pathology to r/o silent aspiration Problems reviewed: Yes Code(s): J18.9 - PNEUMONIA, UNSPECIFIED ORGANISM (4) Sepsis Assessment/Plan: -Mildly hypotensive earlier -LA normal -Leukocytosis noted- follow trend -BC/UC pending Problems reviewed: Yes Code(s): A41.9 - SEPSIS, UNSPECIFIED ORGANISM (5) COPD (chronic obstructive pulmonary disease) Problems reviewed: Yes Code(s): J44.9 - CHRONIC OBSTRUCTIVE PULMONARY DISEASE, UNSPECIFIED (6) Heart failure Assessment/Plan: -Cardiology consult -Furosemide 40 mg IVP daily -Last Echo 2017 with normal LVEF at 69% with mild tricuspid + mitral regurg + mild aortic sclerosis -Repeat Echo -Tele monitor Problems reviewed: Yes Code(s): I50.9 - HEART FAILURE, UNSPECIFIED (7) Arthritis Assessment/Plan: -Hold off Oxycodone for now -Acetaminophen 1000 mg IVPB Q6H PRN Problems reviewed: Yes Code(s): M19.90 - UNSPECIFIED OSTEOARTHRITIS, UNSPECIFIED SITE (8) Altered mental state Assessment/Plan: -CT head moderate atrophy -Check B12, RPR and FA -Thyroid profile normal Problems reviewed: Yes Code(s): R41.82 - ALTERED MENTAL STATUS, UNSPECIFIED Qualifiers: Altered mental status type: unspecified Qualified Code(s): R41.82 - Altered mental status, unspecified (9) Metabolic encephalopathy Problems reviewed: Yes Code(s): G93.41 - METABOLIC ENCEPHALOPATHY Assessment/Plan See problem list Spoke to [place] about pt status
[2020-03-08] MEDS ORDERED: ACETAMINOPHEN 1000 MG/100 ML VIAL (NON FORMULARY) IVPB PRN (13:33)
[2020-03-08] MEDS ORDERED: FUROSEMIDE 40 MG/4 ML INJECTABLE VIAL ONE (14:25)
[2020-03-08] MEDS ORDERED: CEFTRIAXONE 2 GM/100 ML BAG IVPB ONE (14:25)
[2020-03-08] MEDS: FUROSEMIDE 40 MG/4 ML INJECTABLE VIAL IVPUSH SCH (14:30)
[2020-03-08] MEDS: CEFTRIAXONE 2 GM in DEXTROSE 5%-WATER 100 ML IVPB SCH (14:35)
--- NOTE | 2020-03-08 15:09 | CONS ---
DATE OF CONSULTATION: DATE OF DICTATION: 03/08/2020 CHIEF COMPLAINT/HISTORY OF PRESENT ILLNESS: This is an 84-year-old woman. She lives alone in a senior apartment and ambulates with a walker. She sustained a recent fall, sustaining a laceration to her left lower extremity. She was brought to the ER by her son, who reports that she has been getting weaker over the last several weeks and has not been eating properly. She was recently seen by her PMD as well. Patient is awake and alert. She is wearing a nonrebreather mask. She has an occasional cough, but no complaints of shortness of breath and really has no complaints. ALLERGIES: She is allergic to AMOXICILLIN but has taken Keflex before; SILVADENE, LEXAPRO, and LEVOFLOXACIN. MEDICATIONS: Her medications at home include Aricept, Lipitor, Cardizem, Colace, gabapentin, Synthroid, Singulair, nystatin, zinc, Xanax, subcutaneous heparin, and oxycodone p.r.n. PAST MEDICAL HISTORY: Notable for COPD. She has had prior UTIs. She has a history of hypertension, hypercholesterolemia. She has had a cholecystectomy in the past. PAST SURGICAL HISTORY: She has history of a right hip surgery in the past. SOCIAL HISTORY: She stopped smoking in 2016. No history of any substance use. She is living in skilled nursing. Her son visits her daily. REVIEW OF SYSTEMS: As per HPI. PHYSICAL EXAMINATION: Vital Signs: T-max is 100. Current temperature is 98. Pulse is 85, blood pressure 106/46, respiratory rate is 22, saturating 100% on a nonrebreather. HEENT: She is normocephalic. She is awake and conversant. She has no idea why she is wearing a nonrebreather. Lungs: Diminished breath sounds at the bases. Heart: Regular rate and rhythm. Abdomen: Soft, nontender. Extremities: She has a laceration with minimal erythema. 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 She has a small pustule on her right foot. LABORATORY: Urine and blood cultures have been sent. Prior cultures from 2019 MRSA screens were negative, and she had MSSA in a wound culture. Labs are notable for a white count of 21,000, hemoglobin 11.2, platelets are 388. BUN is 12 and creatinine 0.8. LFTs are normal. Urinalysis is negative, and her COVID PCR is pending. She had a head and cervical spine CT because of the history of fall at home, that were notable for no acute intracranial pathology. She has no gross fracture of her cervical spine. Her chest x-ray is notable for diffuse bilateral increased interstitial markings, congestion versus infiltrate. SUMMARY: This is an 84-year-old woman, lives in a senior building in [place], who was sent to the ER with lethargy and weakness. She is noted to have a leukocytosis, and she has hypoxia, cannot rule out pneumonia. Doubt cellulitis as being a cause of her overall symptoms. She has multiple allergies to both penicillins and quinolones. Would obtain blood cultures and a urinary antigen, COVID PCR. Would treat her with Rocephin and Zithromax for CAP at this time. Wound care management per Surgery. Case was discussed with the primary care provider. SUNNY RICHMOND M.D. [id number]
--- NOTE | 2020-03-08 15:27 | CON.CARD ---
Consult Consult Specialty:: Cardiology Reason for Consultation:: CHF - History of Present Illness Chief Complaint: JEWELL, SOB History of Present Illness: This is an 84 year old female with a PMH of HTN, HLD, past TIA's, and chronic LE wound. She presents now to the ED with lethargy for 2 weeks. Last Echocardiogram 11/27/2015 showed an EF of 45%, with trace to mild MR. 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 Cardio/Vascular: Yes: HTN, Hyperlipdemia Pulmonary: Yes: COPD Gastrointestinal: Yes: GERD Musculoskeletal: Yes: Chronic low back pain Endocrine: Yes: Hypothyroidism - Past Surgical History Past Surgical History: Yes: Cholecystectomy - Alcohol/Substance Use Hx Alcohol Use: No History of Substance Use: reports: None - Smoking History Smoking history: Former smoker Have you smoked in the past 12 months: No Aproximately how many cigarettes per day: 20 If you are a former smoker, when did you quit?: 2016 - Social History Usual Living Arrangement: Alone ADL: Support Services History of Recent Travel: No Home Medications - Allergies Allergies/Adverse Reactions: Allergies Allergy/AdvReac Type Severity Reaction Status Date / Time amoxicillin [Amoxicillin] Allergy Verified 03/07/20 20:12 Penicillins Allergy Verified 03/07/20 20:12 silver sulfadiazine Allergy Verified 03/07/20 20:12 [From Silvadene] escitalopram AdvReac Intermediate Verified 03/07/20 20:12 levofloxacin [Levofloxacin] AdvReac Intermediate Verified 03/07/20 20:12 - Home Medications Home Medications: Ambulatory Orders Bacitracin - [Bacitracin Topical Ointment -] 1 applic TP DAILY #1 tube 06/20/16 Donepezil HCl [Aricept -] 5 mg PO DAILY #30 tablet 12/09/16 Atorvastatin Ca [Lipitor] 20 mg PO HS #30 tablet 08/23/18 Diltiazem Cd [Cardizem Cd -] 120 mg PO DAILY #30 cap.cd.24h 08/23/18 Docusate Sodium [Colace -] 300 mg PO HS #90 capsule 08/23/18 Gabapentin 300 mg PO BID #180 capsule 08/23/18 Levothyroxine [Synthroid -] 25 mcg PO DAILY@0700 #30 tablet 08/23/18 Montelukast Na [Singulair -] 10 mg PO HS #30 tablet 08/23/18 Nystatin Powder [Nystop Powder -] 60 gm TP BID #1 powder 08/23/18 Zinc Oxide 1 applic TP BID #1 tube 08/23/18 Acetaminophen [Tylenol .Regular Strength -] 325 mg PO Q8H PRN tablet 02/23/19 Alprazolam [Xanax] 1 mg PO Q12H PRN tablet MDD 2 02/23/19 Heparin - 5,000 unit SQ BID vial 02/23/19 oxyCODONE HCL [Roxicodone -] 5 mg PO Q8H PRN tablet MDD 3 02/23/19 Vital Signs: Vital Signs Temperature 98.0 F 03/08/20 06:58 Pulse Rate 97 H 03/08/20 14:00 Respiratory Rate 20 03/08/20 14:00 Blood Pressure 113/53 L 03/08/20 14:00 O2 Sat by Pulse Oximetry (%) 93 L 03/08/20 14:00 Constitutional: Yes: No Distress HENT: Yes: WNL Neck: Yes: WNL Respiratory: Yes: Diminished, Dullness Gastrointestinal: Yes: Soft Cardiovascular: Yes: Regular Rate and Rhythm Heart Sounds: Yes: S1, S2 Extremities: Yes: Other (Chronic wound as described) Neurological: Yes: Alert - Other Data Labs, Other Data: CBC, BMP 03/08/20 06:45 03/08/20 06:00 INR, PTT INR 1.45 (0.83-1.09) H 03/07/20 21:25 Troponin, BNP 03/07/20 21:25 Troponin I < 0.02 Troponin, BNP 03/07/20 21:25 Troponin I < 0.02 Assessment/Plan 84 year old female with a PMH of HTN, HLD, past TIA's, and chronic LE wound. She presents now to the ED with lethargy for 2 weeks. Last Echocardiogram 11/27/2015 showed an EF of 45%, with trace to mild MR. Trops neg BNP pending Covid pending CHF Agree with Lasix 40 mg IV daily Follow I's/O's/Wt's/Lytes The BNP will be helpful in assessing her fluid status and need for on going diuresis Would obtain a echocardiography (last echo was 2015)
[2020-03-08 15:39] LABS: N-TERMINAL BNP 1929.5 pg/ml (5-450)
[2020-03-08] MEDS ORDERED: VANCOMYCIN 1 GRAM (PRE-DOCKED) 1,000 MG/250 ML BAG IVPB ONE (22:00)
[2020-03-08] MEDS: ATORVASTATIN CA 20 MG TABLET (FP) PO SCH (23:07)
[2020-03-08] MEDS: HEPARIN NA (PORCINE) 5,000 UNITS/ML 1ML VIAL SQ SCH (23:07)
[2020-03-08] MEDS: ZINC OXIDE 20% TOPICAL OINTMENT 30 GM TUBE TP SCH (23:07)
[2020-03-08] MEDS: MONTELUKAST NA 10 MG TABLET PO SCH (23:07)
[2020-03-08] MEDS: GABAPENTIN 100 MG CAPSULE PO SCH (23:07)
[2020-03-08] MEDS: DONEPEZIL HCL 5 MG TABLET (FP) PO SCH (23:07)
[2020-03-08] MEDS: DOXYCYCLINE INJECTION 100 MG in DEXTROSE 5%-WATER - 100 ML IVPB SCH (23:09)
[2020-03-08] MEDS: NYSTATIN POWDER 100,000 UNITS/GM - 15 GM TOPICAL POWDER TP SCH (23:10)
[2020-03-08] MEDS: GENTAMICIN SO4 0.1% TOPICAL OINTMENT 15 GM/TUBE TUBE TP SCH (23:10)
[2020-03-08] MEDS: TRIAMCINOLONE ACET 0.1% OINT 15 GM TUBE TP SCH (23:11)
[2020-03-09 06:55] LABS: ALBUMIN 1.8 g/dl (3.4-5.0); BASO % 0.1 % (0-2.0); BILIRUBIN,TOTAL 0.7 mg/dL (0.2-1); BLOOD UREA NITROGEN 12.3 mg/dL (7-18); CALCIUM 9.1 mg/dL (8.5-10.1); CREATININE 0.7 mg/dL (0.55-1.3); EOS % 0.1 % (0-4.5); HEMATOCRIT 42.8 % (32.4-45.2); HEMOGLOBIN 13.2 GM/dL (10.7-15.3); LYMPH % 0.9 % (8-40); MCH 29.4 pg (25.7-33.7); MCHC 30.8 g/dl (32.0-36.0); MEAN CELL VOLUME 95.5 fl (80-96); MONO % 2.2 % (3.8-10.2); NEUT % 96.7 % (42.8-82.8); PLATELET COUNT 446 K/MM3 (134-434); POTASSIUM 4.3 mmol/L (3.5-5.1); RBC 4.48 M/mm3 (3.60-5.2); RDW 15.5 % (11.6-15.6); TOT PROT 6.5 g/dl (6.4-8.2); WHITE BLOOD COUNT 29.2 K/mm3 (4.0-10.0)
[2020-03-09] MEDS: LEVOTHYROXINE NA 25 MCG TABLET (FP) PO SCH (07:12)
[2020-03-09] MEDS ORDERED: DEXTROSE 5%-WATER 100 ML IVPB ONE ×2 (08:12→16:04)
[2020-03-09] MEDS: ZINC OXIDE 20% TOPICAL OINTMENT 30 GM TUBE TP SCH ×2 (09:50→22:36)
[2020-03-09] MEDS: DOXYCYCLINE INJECTION 100 MG in DEXTROSE 5%-WATER - 100 ML IVPB SCH (09:50)
[2020-03-09] MEDS ORDERED: LORazepam 2 MG/ML SDV VIAL IVPUSH PRN (10:06)
--- NOTE | 2020-03-09 10:09 | PN ---
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, Physician Chief Complaint: Lethargy Generalized weakness History of Present Illness: NAD, lethargic, well known to me from the office. Pt was seen my office 2 weeks ago, with c/o lethargy and decreased appetite, pt was encouraged to go to the hospital, however, pt and son refused at that time. Labs drawn in the office 2 weeks ago showed hyperkalemia with K of 6.0, otherwise unremarkable. Pt's son was again instructed to take pt to the hospital. Pt had an unwitnessed fall 2 weeks prior to that which caused mild laceration on her left randle. Pt is severely arthritic, mainly stays in a wheelchair. She sits on a chair at home in the same position for most of the day,which had led to pressure ulcers BL interior aspect of her buttocks. Pt's son was provided with wound care instructions and started on cephalexin po and was also seen by Wound care Physician Vamsi Zaldivar MD at home who also prescribed her topical gentamicin for wound care + allevyn dressing. Pt was highly encouraged to stay off the chair and may be sit in a recliner at home. Pt lives at home alone, son visits her daily. 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 She takes her own medications. Son does meal prep for the pt. Pt takes Oxycodone 5 mg QID PRN for chronic arthritic pain+ Alprazolam 0.5 mg po BID PRN for anxiety. Pt c/o mild SOB upon questioning, which is not her baseline. Concern for aspiration pneumonia given recent change in mental state. She is AxO x 3 with garbled but comprehensible speech. RN notifies pt was coughing when given thin fluids earlier. Opens her eyes to verbal stimuli, denies any pain or SOB Hypoxic overnight, tried on BIPAP- made pt more anxious, is currently on High stephon Spo2 90% Knows she's in the hospital, her name, it's 2019, president is Dianne. Upon questioning, pt doesn't want to be intubated or resuscitated Spoke to son Nomi, who's in agreement, would be signing official papers on visitation for DNR/DNI - Current Medication List Current Medications: Active Medications Acetaminophen (Ofirmev Injection -) 1,000 mg IVPB Q6H PRN PRN Reason: PAIN Stop: 03/09/20 13:33 Atorvastatin Calcium (Lipitor -) 20 mg PO HS [facility] Last Admin: 03/08/20 23:07 Dose: 20 mg Documented by: Diltiazem HCl (Cardizem Cd -) 120 mg PO DAILY [facility] Last Admin: 03/08/20 09:30 Dose: Not Given Documented by: Donepezil HCl (Aricept -) [address] [facility] Last Admin: 03/08/20 23:07 Dose: 5 mg Documented by: Furosemide (Lasix Injection -) 40 mg IVPUSH DAILY [facility] Last Admin: 03/08/20 14:30 Dose: 40 mg Documented by: Gabapentin (Neurontin -) 300 mg PO BID [facility] Last Admin: 03/08/20 23:07 Dose: 300 mg Documented by: Gentamicin Sulfate (Garamycin 0.1% Ointment -) 1 applic TP BID [facility] Last Admin: 03/08/20 23:10 Dose: 1 applic Documented by: Heparin Sodium (Porcine) (Heparin -) 5,000 unit SQ BID [facility] Last Admin: 03/08/20 23:07 Dose: 5,000 unit Documented by: Ceftriaxone Sodium 2 gm/ (Dextrose) 100 mls @ 200 mls/hr IVPB DAILY [facility]; Protocol Last Admin: 03/08/20 14:35 Dose: 200 mls/hr Documented by: Doxycycline Hyclate 100 mg/ (Dextrose) 100 mls @ 100 mls/hr IVPB BID [facility] Last Admin: 03/08/20 23:09 Dose: 100 mls/hr Documented by: Levothyroxine Sodium (Synthroid -) 25 mcg PO DAILY@0700 [facility] Last Admin: 03/09/20 07:12 Dose: 25 mcg Documented by: Montelukast Sodium (Singulair -) [address] [facility] Last Admin: 03/08/20 23:07 Dose: 10 mg Documented by: Multi-Ingredient Ointment (Zinc Oxide) 1 applic TP BID [facility] Last Admin: 03/08/20 23:07 Dose: 1 applic Documented by: Nystatin (Nystop Powder -) 1 applic TP BID [facility] Last Admin: 03/08/20 23:10 Dose: 1 applic Documented by: Pantoprazole Sodium (Protonix Iv) 40 mg IVPUSH DAILY [facility] Triamcinolone Acetonide (Aristocort 0.1% Ointment -) 1 applic TP BID [facility] Last Admin: 03/08/20 23:11 Dose: 1 applic Documented by: - Objective Vital Signs: Vital Signs Temperature 98.2 F 03/09/20 07:00 Pulse Rate 110 H 03/09/20 07:00 Respiratory Rate 28 H 03/09/20 07:00 Blood Pressure 132/51 L 03/09/20 07:00 O2 Sat by Pulse Oximetry (%) 87 L 03/09/20 08:12 Constitutional: Yes: Well Nourished, No Distress, Calm Cardiovascular: Yes: Tachycardia, Murmur (Grade III/ systolic murmur) Respiratory: Yes: Regular, Rales (BLL), Other (on High Stephon) Gastrointestinal: Yes: Normal Bowel Sounds, Soft Musculoskeletal: Yes: Muscle Weakness Extremities: Yes: Other (generalized atrophy) Edema: No Peripheral Pulses WNL: Yes Wound/Incision: Yes: Dressing Removed (Stage II sacral ulcers) Neurological: Yes: Alert, Oriented Psychiatric: Yes: Alert, Oriented Labs: CBC, BMP 03/09/20 06:05 03/09/20 06:05 INR, PTT INR 1.45 (0.83-1.09) H 03/07/20 21:25 Problem List - Problems (1) Failure to thrive Assessment/Plan: -NPO excpet medications crushed with apple sauce -Speech pathology consult -Goals of care discussed with son Nomi, wants mother to be DNR/DNI -Palliative care consult Problems reviewed: Yes Code(s): HIS2608 - Qualifiers: Failure to thrive age range: in adult Qualified Code(s): R62.7 - Adult fa ilure to thrive (2) Generalized weakness Assessment/Plan: -Likely 2/2 to acute metabolic encephalopathy -PT -Hold of any sedatives -Ativan 0.5 mg TID PRN IVP for any withdrawal symptoms Problems reviewed: Yes Code(s): R53.1 - WEAKNESS (3) Pneumonia Assessment/Plan: -ID + Pulmonary consult -CXR reviewed -COVID 19 PCR pending -Afebrile -IV abx -Aspirations precautions -Speech pathology to r/o silent aspiration Problems reviewed: Yes Code(s): J18.9 - PNEUMONIA, UNSPECIFIED ORGANISM (4) Sepsis Assessment/Plan: -Mildly hypotensive earlier -LA normal -Leukocytosis noted- follow trend -UC negative -BC pending Problems reviewed: Yes Code(s): A41.9 - SEPSIS, UNSPECIFIED ORGANISM (5) COPD (chronic obstructive pulmonary disease) Problems reviewed: Yes Code(s): J44.9 - CHRONIC OBSTRUCTIVE PULMONARY DISEASE, UNSPECIFIED (6) Heart failure Assessment/Plan: -Cardiology consult -Furosemide 40 mg IVP daily -Last Echo 2016 with normal LVEF at 69% with mild tricuspid + mitral regurg + mild aortic sclerosis -Repeat Echo -Tele monitor Problems reviewed: Yes Code(s): I50.9 - HEART FAILURE, UNSPECIFIED (7) Arthritis Assessment/Plan: -Hold off Oxycodone for now -Acetaminophen 1000 mg IVPB Q6H PRN Problems reviewed: Yes Code(s): M19.90 - UNSPECIFIED OSTEOARTHRITIS, UNSPECIFIED SITE (8) Altered mental state Assessment/Plan: -CT head moderate atrophy -B12, RPR and FA normal -Thyroid profile normal Problems reviewed: Yes Code(s): R41.82 - ALTERED MENTAL STATUS, UNSPECIFIED Qualifiers: Altered mental status type: unspecified Qualified Code(s): R41.82 - Altered mental status, unspecified (9) Metabolic encephalopathy Problems reviewed: Yes Code(s): G93.41 - METABOLIC ENCEPHALOPATHY (10) Stage II pressure ulcer of sacral region Problems reviewed: Yes Code(s): L89.152 - PRESSURE ULCER OF SACRAL REGION, STAGE 2 Assessment/Plan See problem list Spoke to eric Mosher about pt status.
[2020-03-09 10:10] LABS: ANISOCYTOSIS 0; MACROCYTOSIS 0; PLATELET ESTIMATE NORMAL
[2020-03-09] MEDS: TRIAMCINOLONE ACET 0.1% OINT 15 GM TUBE TP SCH ×2 (10:21→22:35)
[2020-03-09] MEDS: HEPARIN NA (PORCINE) 5,000 UNITS/ML 1ML VIAL SQ SCH ×2 (10:22→22:35)
[2020-03-09] MEDS: FUROSEMIDE 40 MG/4 ML INJECTABLE VIAL IVPUSH SCH (10:22)
[2020-03-09] MEDS: NYSTATIN POWDER 100,000 UNITS/GM - 15 GM TOPICAL POWDER TP SCH ×2 (10:22→22:33)
[2020-03-09] MEDS: GABAPENTIN 100 MG CAPSULE PO SCH ×2 (10:22→22:32)
[2020-03-09] MEDS: PANTOPRAZOLE SODIUM 40 MG VIAL IVPUSH SCH (10:22)
[2020-03-09] MEDS: GENTAMICIN SO4 0.1% TOPICAL OINTMENT 15 GM/TUBE TUBE TP SCH ×2 (10:22→22:34)
--- NOTE | 2020-03-09 10:58 | CONSULT ---
Admitting History and Physical - Primary Care Physician PCP: Lanie Teresa - Admission History of Present Illness: 84y F with PMH of HLD, HTN, TIA, chronic LE wounds. Admitted to Telemetry for Acute Respiratory Failure with Hypercapnia, Cellulitis, Generalized Weakness Per PNP-Pt c/o mild SOB upon questioning, which is not her baseline. Concern for aspiration pneumonia given recent change in mental state. She is AxO x 3 with garbled but comprehensible speech. RN notifies pt was coughing when given thin fluids earlier. Hypoxic overnight, tried on BIPAP- made pt more anxious, is currently on High stephon Spo2 90% Knows she's in the hospital, her name, it's 2019, president is Dianne. Upon questioning, pt doesn't want to be intubated or resuscitated Spoke to son Nomi, who's in agreement, would be signing official papers on visitation for DNR/DNI Selected Entries 03/08/20 03/08/20 03/08/20 02:53 06:58 10:00 Breakfast Check all that apply Lunch Temperature 98.0 F Pulse Rate Pulse Rate [ 85 93 H Left Radial] Pulse Rate [ 89 Radial] Blood Pressure Blood Pressure 111/65 [Left Arm] Blood Pressure 106/46 L 108/49 L [Right Arm] 03/08/20 03/08/20 03/08/20 14:00 15:26 15:28 Breakfast Check all that Pressure ulcer apply >Stage I Failure to Thrive Lunch Temperature 99.9 F H Pulse Rate 98 H 90 Pulse Rate [ 97 H Left Radial] Pulse Rate [ Radial] Blood Pressure 127/69 127/69 Blood Pressure [Left Arm] Blood Pressure 113/53 L [Right Arm] 03/08/20 03/08/20 03/09/20 17:44 23:00 07:00 Breakfast Check all that apply Lunch Temperature 98.0 F 98.2 F Pulse Rate 108 H 107 H 110 H Pulse Rate [ Left Radial] Pulse Rate [ Radial] Blood Pressure 130/70 128/63 132/51 L Blood Pressure [Left Arm] Blood Pressure [Right Arm] 03/09/20 09:20 Breakfast NPO Check all that apply Lunch NPO Temperature Pulse Rate Pulse Rate [ Left Radial] Pulse Rate [ Radial] Blood Pressure Blood Pressure [Left Arm] Blood Pressure [Right Arm] Laboratory Tests 03/07/20 03/08/20 03/09/20 21:25 06:45 06:05 WBC 24.6 H 21.3 H 29.2 H Laboratory Tests 03/07/20 21:25 COVID-19 (TARY[facility]) Pending History Source: Medical Record Limitations to Obtaining History: Clinical Condition - Past Medical History 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 Cardiovascular: Yes: HTN, Hyperlipdemia Pulmonary: Yes: COPD Gastrointestinal: Yes: GERD Musculoskeletal: Yes: Chronic low back pain Endocrine: Yes: Hypothyroidism - Past Surgical History Past Surgical History: Yes: Cholecystectomy - Smoking History Smoking history: Former smoker Have you smoked in the past 12 months: No Aproximately how many cigarettes per day: 20 If you are a former smoker, when did you quit?: 2016 - Alcohol/Substance Use Hx Alcohol Use: No History of Substance Use: reports: None - Social History ADL: Support Services History of Recent Travel: No History - Admission Reason For Visit: PRESSURE INJURY OF SKIN OF SACRAL REGION,FEVER - Diagnostics X-ray: Report Reviewed (repeat cxr pending) CT Scan: Report Reviewed - General Mental Status: Alert and Oriented, Able to Follow Commands Attention: Intact Ability to Follow Directions: Fair - Hearing Hearing: Normal Hearing Aide: No With Patient: No Speech Evaluation - Communication Primary Language: SWEDISH Communication: Yes: Simple Responses - Speech Production Intelligibility: Yes: Mildly Impaired - Speech Characteristics Speech Pattern: Impaired Speech Clarity: < 75% Articulation: Yes: Imprecise - Swallow Evaluation/Bedside Assessment Current Nutritional Intake: NPO, Other (medication in applesauce) Coughing/Throat Clear: Yes (medication in applesauce, other trials not given) Recommendations - Speech Evaluation, Impression/Plan Impression: On hi-stephon, Cough response on Medication in applesauce,Covid pending. Will reassess as pt improves - Dysphagia Impressions/Plan Dysphagia Impressions: Suspect Aspiration *Silent aspiration: cannot be R/O at bedside - Recommendations Diet Consistency: NPO Liquids: NPO
--- NOTE | 2020-03-09 11:42 | CON.PULM ---
Consult Consult Specialty:: PULMONARY Referred by:: Dr Teresa Reason for Consultation:: shortness of breath - History of Present Illness Chief Complaint: shortness of breath History of Present Illness: 84yo female with h/o HTN, hyperlipidemia, h/o TIA, who was admitted with increasing lethargy for 2 weeks. Pt unable to provide further history at this time given her lethargy. Initial CXR showing chronic changes but today's CXR w ith extensive right sided consolidations. No fevers recorded but with significant leukocytosis. ABG showing respiratory acidosis now on HFOT 90% FiO2. 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 Cardio/Vascular: Yes: HTN, Hyperlipdemia Pulmonary: Yes: COPD Gastrointestinal: Yes: GERD Musculoskeletal: Yes: Chronic low back pain Endocrine: Yes: Hypothyroidism - Past Surgical History Past Surgical History: Yes: Cholecystectomy - Alcohol/Substance Use Hx Alcohol Use: No History of Substance Use: reports: None - Smoking History Smoking history: Former smoker Have you smoked in the past 12 months: No Aproximately how many cigarettes per day: 20 If you are a former smoker, when did you quit?: 2016 - Social History Usual Living Arrangement: Alone ADL: Support Services History of Recent Travel: No Home Medications - Allergies Allergies/Adverse Reactions: Allergies Allergy/AdvReac Type Severity Reaction Status Date / Time amoxicillin [Amoxicillin] Allergy Verified 03/07/20 20:12 Penicillins Allergy Verified 03/07/20 20:12 silver sulfadiazine Allergy Verified 03/07/20 20:12 [From Silvadene] escitalopram AdvReac Intermediate Verified 03/07/20 20:12 levofloxacin [Levofloxacin] AdvReac Intermediate Verified 03/07/20 20:12 - Home Medications Home Medications: Ambulatory Orders Bacitracin - [Bacitracin Topical Ointment -] 1 applic TP DAILY #1 tube 06/20/16 Donepezil HCl [Aricept -] 5 mg PO DAILY #30 tablet 12/09/16 Atorvastatin Ca [Lipitor] 20 mg PO HS #30 tablet 08/23/18 Diltiazem Cd [Cardizem Cd -] 120 mg PO DAILY #30 cap.cd.24h 08/23/18 Docusate Sodium [Colace -] 300 mg PO HS #90 capsule 12/23/18 Gabapentin 300 mg PO BID #180 capsule 08/23/18 Levothyroxine [Synthroid -] 25 mcg PO DAILY@0700 #30 tablet 08/23/18 Montelukast Na [Singulair -] 10 mg PO HS #30 tablet 08/23/18 Nystatin Powder [Nystop Powder -] 60 gm TP BID #1 powder 08/23/18 Zinc Oxide 1 applic TP BID #1 tube 08/23/18 Acetaminophen [Tylenol .Regular Strength -] 325 mg PO Q8H PRN tablet 02/23/19 Alprazolam [Xanax] 1 mg PO Q12H PRN tablet MDD 2 02/23/19 Heparin - 5,000 unit SQ BID vial 02/23/19 oxyCODONE HCL [Roxicodone -] 5 mg PO Q8H PRN tablet MDD 3 02/23/19 Review of Systems Unable to obtain ROS, reason: pt lethargic Physical Exam Vital Sings: Vital Signs Temperature 97.9 F 03/09/20 11:00 Pulse Rate 114 H 03/09/20 11:00 Respiratory Rate 30 H 03/09/20 11:00 Blood Pressure 126/53 L 03/09/20 11:00 O2 Sat by Pulse Oximetry (%) 87 L 03/09/20 09:00 Constitutional: Yes: Other (lethargic) Eyes: Yes: Conjunctiva Clear, EOM Intact HENT: Yes: Atraumatic, Normocephalic Neck: Yes: Supple, Trachea Midline Cardiovascular: Yes: Regular Rate and Rhythm Respiratory: Yes: Rhonchi ...Clubbing: No Gastrointestinal: Yes: Normal Bowel Sounds, Soft. No: Tenderness Edema: No Neurological: Yes: Lethargy Labs: CBC, BMP 03/09/20 06:05 03/09/20 06:05 ABG Results ABG pH 7.308 (7.350-7.450) L 03/07/20 23:55 ABG HCO3 30.4 mmol/L (22-27) H 03/07/20 23:55 ABG O2 Sat (Measured) 94.2 mmHg (95-98) L 03/07/20 23:55 ABG O2 Content No Result Required. 03/07/20 23:55 ABG Base Excess 2.8 mmol/L (-2-2) H 07/07/20 23:55 Imaging - Results Chest X-ray: Report Reviewed, Image Reviewed (right sided consolidation) Assessment/Plan Acute Hypoxic and Hypercapneic Respiratory Failure Pneumonia HTN Hyperlipidemia h/o TIA - IV antibiotics - f/u cultures, serologies - HFOT to keep SpO2 >90% - aspiration precautions - inhaled bronchodilators - DVT prophylaxis - prognosis guarded Thank you for this consult Juan C Arevalo MD
--- NOTE | 2020-03-09 14:40 | PN ---
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 (short form) - Note 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: now on hi flow oxygen weak but talking moist cough Vital Signs Period Temp Pulse Resp BP Sys/Pineda Pulse Ox Last 24 Hr 97.9 F-99.9 F 90-114 20-36 126-132/51-70 87-97 cor-rrr lungs bilateral rhonchi abd soft,nt ext no edema CBC, BMP 03/09/20 06:05 03/09/20 06:05 Microbiology 03/07/20 21:25 Urine - Urine - Catheterized Urine Culture - Final NO GROWTH OBTAINED 03/07/20 21:25 Blood - Peripheral Venous Blood Culture - Preliminary NO GROWTH OBTAINED AFTER 24 HOURS, INCUBATION TO C ONTINUE FOR 4 DAYS. 03/07/20 21:25 Blood - Peripheral Venous Blood Culture - Preliminary NO GROWTH OBTAINED AFTER 24 HOURS, INCUBATION TO CO NTINUE FOR 4 DAYS. a/p extensive right sided pneumonia with hypoxia urinary antigens pen allergy escalate antibioitics to vanco/meropenem/doxycycline-will cover resistant organisms, MRSA and anaerobes overall prognosis is poor sputum culture/mrsa nares swab d/w son at bedside l Problem List - Problems (1) Leukocytosis Code(s): D72.829 - ELEVATED WHITE BLOOD CELL COUNT, UNSPECIFIED (2) Pneumonia Code(s): J18.9 - PNEUMONIA, UNSPECIFIED ORGANISM (3) Open leg wound Code(s): S81.809A - UNSPECIFIED OPEN WOUND, UNSPECIFIED LOWER LEG, INIT ENCNTR Qualifiers: Encounter type: initial encounter Laterality: left Qualified Code(s): S81.802A - Unspecified open wound, left lower leg, initial encounter (4) Allergy to multiple antibiotics Code(s): Z88.1 - ALLERGY STATUS TO OTHER ANTIBIOTIC AGENTS STATUS
[2020-03-09] MEDS ORDERED: MEROPENEM 500 MG in DEXTROSE 5%-WATER 100 ML IVPB SCH (14:45)
--- NOTE | 2020-03-09 14:49 | CON.CARD ---
Consult Consult Specialty:: Cardiology - History of Present Illness History of Present Illness: This is an 84 year old female with a PMH of HTN, HLD, past TIA's, and chronic LE wound. She presents now to the ED with lethargy for 2 weeks. Last Echocardiogram 11/27/2015 showed an EF of 45%, with trace to mild MR. 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 Cardio/Vascular: Yes: HTN, Hyperlipdemia Pulmonary: Yes: COPD Gastrointestinal: Yes: GERD Musculoskeletal: Yes: Chronic low back pain Endocrine: Yes: Hypothyroidism - Past Surgical History Past Surgical History: Yes: Cholecystectomy - Alcohol/Substance Use Hx Alcohol Use: No History of Substance Use: reports: None - Smoking History Smoking history: Former smoker Have you smoked in the past 12 months: No Aproximately how many cigarettes per day: 20 If you are a former smoker, when did you quit?: 2016 - Social History Usual Living Arrangement: Alone ADL: Support Services History of Recent Travel: No Home Medications - Allergies Allergies/Adverse Reactions: Allergies Allergy/AdvReac Type Severity Reaction Status Date / Time amoxicillin [Amoxicillin] Allergy Verified 03/07/20 20:12 Penicillins Allergy Verified 03/07/20 20:12 silver sulfadiazine Allergy Verified 03/07/20 20:12 [From Silvadene] escitalopram AdvReac Intermediate Verified 03/07/20 20:12 levofloxacin [Levofloxacin] AdvReac Intermediate Verified 03/07/20 20:12 - Home Medications Home Medications: Ambulatory Orders Bacitracin - [Bacitracin Topical Ointment -] 1 applic TP DAILY #1 tube 06/20/16 Donepezil HCl [Aricept -] 5 mg PO DAILY #30 tablet 12/09/16 Atorvastatin Ca [Lipitor] 20 mg PO HS #30 tablet 08/23/18 Diltiazem Cd [Cardizem Cd -] 120 mg PO DAILY #30 cap.cd.24h 08/23/18 Docusate Sodium [Colace -] 300 mg PO HS #90 capsule 08/23/18 Gabapentin 300 mg PO BID #180 capsule 08/23/18 Levothyroxine [Synthroid -] 25 mcg PO DAILY@0700 #30 tablet 08/23/18 Montelukast Na [Singulair -] 10 mg PO HS #30 tablet 08/23/18 Nystatin Powder [Nystop Powder -] 60 gm TP BID #1 powder 08/23/18 Zinc Oxide 1 applic TP BID #1 tube 08/23/18 Acetaminophen [Tylenol .Regular Strength -] 325 mg PO Q8H PRN tablet 02/23/19 Alprazolam [Xanax] 1 mg PO Q12H PRN tablet MDD 2 02/23/19 Heparin - 5,000 unit SQ BID vial 02/23/19 oxyCODONE HCL [Roxicodone -] 5 mg PO Q8H PRN tablet MDD 3 02/23/19 Vital Signs: Vital Signs Temperature 97.9 F 03/09/20 11:00 Pulse Rate 114 H 03/09/20 11:00 Respiratory Rate 30 H 03/09/20 11:00 Blood Pressure 126/53 L 03/09/20 11:00 O2 Sat by Pulse Oximetry (%) 97 03/09/20 12:02 Constitutional: Yes: No Distress Eyes: Yes: WNL HENT: Yes: WNL Neck: Yes: WNL Respiratory: Yes: Diminished Cardiovascular: Yes: Regular Rate and Rhythm Heart Sounds: Yes: S1, S2 Edema: No - Other Data Labs, Other Data: CBC, BMP 03/09/20 06:05 03/09/20 06:05 INR, PTT INR 1.45 (0.83-1.09) H 03/07/20 21:25 Troponin, BNP 03/08/20 06:00 B-Natriuretic Peptide 1929.5 H Troponin, BNP 03/08/20 06:00 B-Natriuretic Peptide 1929.5 H Assessment/Plan 84 year old female with a PMH of HTN, HLD, past TIA's, and chronic LE wound. She presents now to the ED with lethargy for 2 weeks. Last Echocardiogram 11/27/2015 showed an EF of 45%, with trace to mild MR. Trops neg BNP 1930 Covid negative CHF Agree with Lasix 40 mg IV daily Follow I's/O's/Wt's/Lytes The BNP elevated Repeat echcoardiogram is pending
--- NOTE | 2020-03-09 15:41 | ECHO ---
Name: YUKO KNOX Exam:Adult Echocardiogram Study Date: 03/09/2020 01:13 PM Age: 84 yrs Reason For Study: Arrhythmia Height: 64 in Weight: 160 lb BSA: 1.8 m2 MMode/2D Measurements & Calculations IVSd: 1.2 cm Ao root diam: 2.9 cm LVIDd: 3.2 cm LA dimension: 1.5 cm LVIDs: 2.4 cm LVPWd: 0.98 cm EDV(Teich): 42.2 ml LVOT diam: 2.0 cm ESV(Teich): 19.4 ml LAV (MOD-bp): 32.2 ml Doppler Measurements & Calculations MV E max davis: 64.0 cm/sec Ao V2 max: 169.7 cm/sec MV A max davis: 107.7 cm/sec Ao max P.5 mmHg MV E/A: 0.59 MV dec time: 0.06 sec LEIF(V,D): 2.3 cm2 LV V1 max P.6 mmHg MR max davis: 236.2 cm/sec LV V1 max: 118.8 cm/sec MR max P.4 mmHg TR max davis: 290.8 cm/sec PA V2 max: 95.0 cm/sec TR max P.0 mmHg PA max P.6 mmHg Med Peak E' Davis: 5.2 cm/sec Med E/e': 12.3 Lat Peak E' Davis: 7.2 cm/sec Lat E/e': 8.9 Procedure A complete two-dimensional transthoracic echocardiogram was performed (2D, M-mode, Doppler and color flow Doppler). Left Ventricle The left ventricular size, thickness and function are normal. Ejection Fraction = 60-65%. The left ve ntricular wall motion is normal. Right Ventricle The right ventricle is normal in size and function. Atria Normal left and right atrial size and function. Mitral Valve There is no mitral regurgitation noted. Tricuspid Valve There is trace tricuspid regurgitation. Right ventricular systolic pressure is normal. Aortic Valve No hemodynamically significant valvular aortic stenosis. No aortic regurgitation is present. Pulmonic Valve There is no pulmonic valvular regurgitation. Great Vessels The aortic root is normal size. Pericardium/Pleura There is no pericardial effusion. Interpretation Summary The left ventricular size, thickness and function are normal The right ventricle is normal in size and function. There is trace tricuspid regurgitation. MD Sai Al 03/09/2020 03:41 PM
[2020-03-09] MEDS ORDERED: MEROPENEM 1 GM VIAL (RESTRICTED TO ID) IVPB ONE (16:04)
[2020-03-09] MEDS: MEROPENEM 1 GM in DEXTROSE 5%-WATER 100 ML IVPB SCH ×2 (16:06→22:32)
[2020-03-09] MEDS ORDERED: AZITHROMYCIN IVPB 500 MG/250 ML BAG IVPB ONE ×2 (17:05→22:30)
[2020-03-09] MEDS ORDERED: MEROPENEM 1 GM in DEXTROSE 5%-WATER 100 ML IVPB SCH (18:00)
[2020-03-09] MEDS ORDERED: VANCOMYCIN 1 GRAM (PRE-DOCKED) 1,000 MG/250 ML BAG IVPB SCH (22:00)
[2020-03-09] MEDS ORDERED: PT OWN MED DRAWER 7, Y5N ONE (22:29)
[2020-03-09] MEDS: MONTELUKAST NA 10 MG TABLET PO SCH (22:32)
[2020-03-09] MEDS: ATORVASTATIN CA 20 MG TABLET (FP) PO SCH (22:32)
[2020-03-09] MEDS: DONEPEZIL HCL 5 MG TABLET (FP) PO SCH (22:35)
[2020-03-09] MEDS: VANCOMYCIN 1 GRAM (PRE-DOCKED) 1,000 MG/250 ML BAG IVPB SCH (22:36)
[2020-03-09] MEDS: CEFTRIAXONE 2 GM in DEXTROSE 5%-WATER 100 ML IVPB SCH (22:44)
[2020-03-10] MEDS ORDERED: FUROSEMIDE 40 MG/4 ML INJECTABLE VIAL IVPUSH ONE (00:04)
[2020-03-10] MEDS ORDERED: FUROSEMIDE 40 MG/4 ML INJECTABLE VIAL ONE (00:04)
[2020-03-10] MEDS ORDERED: MEROPENEM 1 GM VIAL (RESTRICTED TO ID) IVPB ONE ×3 (00:05→17:27)
[2020-03-10] MEDS ORDERED: DEXTROSE 5%-WATER 100 ML IVPB ONE ×3 (00:05→17:27)
[2020-03-10] MEDS: MEROPENEM 1 GM in DEXTROSE 5%-WATER 100 ML IVPB SCH ×3 (01:37→17:30)
[2020-03-10 07:11] LABS: BASO % 0.1 % (0-2.0); EOS % 0.1 % (0-4.5); HEMATOCRIT 43.7 % (32.4-45.2); HEMOGLOBIN 12.7 GM/dL (10.7-15.3); LYMPH % 0.7 % (8-40); MCHC 29.1 g/dl (32.0-36.0); MEAN CELL VOLUME 99.6 fl (80-96); MEAN PLT VOLUME 8.1 fl (7.5-11.1); MONO % 2.9 % (3.8-10.2); NEUT % 96.2 % (42.8-82.8); PLATELET COUNT 531 K/MM3 (134-434); RBC 4.39 M/mm3 (3.60-5.2); RDW 16.2 % (11.6-15.6)
[2020-03-10] MEDS: LEVOTHYROXINE NA 25 MCG TABLET (FP) PO SCH (07:33)
[2020-03-10 07:40] LABS: ALBUMIN 1.7 g/dl (3.4-5.0); BILIRUBIN,TOTAL 0.5 mg/dL (0.2-1); BLOOD UREA NITROGEN 26.9 mg/dL (7-18); CALCIUM 9.7 mg/dL (8.5-10.1); CREATININE 1.5 mg/dL (0.55-1.3); POTASSIUM 4.1 mmol/L (3.5-5.1); TOT PROT 6.6 g/dl (6.4-8.2)
[2020-03-10 07:58] LABS: WHITE BLOOD COUNT 38.4 K/mm3 (4.0-10.0)
[2020-03-10] MEDS: GABAPENTIN 100 MG CAPSULE PO SCH ×2 (09:03→21:25)
[2020-03-10] MEDS: TRIAMCINOLONE ACET 0.1% OINT 15 GM TUBE TP SCH ×2 (09:13→21:47)
[2020-03-10] MEDS: GENTAMICIN SO4 0.1% TOPICAL OINTMENT 15 GM/TUBE TUBE TP SCH ×2 (09:14→21:47)
[2020-03-10] MEDS: HEPARIN NA (PORCINE) 5,000 UNITS/ML 1ML VIAL SQ SCH ×2 (09:14→21:34)
[2020-03-10] MEDS: NYSTATIN POWDER 100,000 UNITS/GM - 15 GM TOPICAL POWDER TP SCH ×2 (09:14→21:47)
[2020-03-10] MEDS: PANTOPRAZOLE SODIUM 40 MG VIAL IVPUSH SCH (09:15)
[2020-03-10] MEDS: ZINC OXIDE 20% TOPICAL OINTMENT 30 GM TUBE TP SCH ×2 (09:15→21:48)
[2020-03-10 09:31] LABS: ANISOCYTOSIS 1+; MACROCYTOSIS 1+; PLATELET ESTIMATE INCREASED
--- NOTE | 2020-03-10 09:45 | PN ---
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: Selected Entries 03/09/20 03/09/20 03/09/20 07:00 09:00 11:00 Breakfast Temperature Pulse Rate Respiratory 28 H 28 H 30 H Rate Respiratory Short of Breath Effort Blood Pressure O2 Sat by Pulse Oximetry (%) Fraction of Inspired Oxygen (FIO2) 03/09/20 03/09/20 03/09/20 14:45 15:00 19:00 Breakfast Temperature Pulse Rate Respiratory 30 H 31 H 30 H Rate Respiratory Effort Blood Pressure O2 Sat by Pulse Oximetry (%) Fraction of Inspired Oxygen (FIO2) 03/09/20 03/09/20 03/10/20 21:00 22:00 00:00 Breakfast Temperature Pulse Rate 98 H Respiratory 24 H 16 Rate Respiratory Short of Breath Effort Blood Pressure 139/58 L O2 Sat by Pulse Oximetry (%) Fraction of Inspired Oxygen (FIO2) 03/10/20 03/10/20 03/10/20 00:40 02:12 06:00 Breakfast Temperature 98.2 F 98.9 F Pulse Rate 92 H 98 H Respiratory 24 H 22 H Rate Respiratory Effort Blood Pressure 139/58 L 113/60 O2 Sat by Pulse 90 L Oximetry (%) Fraction of 90 Inspired Oxygen (FIO2) 03/10/20 03/10/20 03/10/20 06:36 08:00 08:30 Breakfast Temperature 98.2 F Pulse Rate 97 H Respiratory 38 H Rate Respiratory Effort Blood Pressure 81/44 L O2 Sat by Pulse Oximetry (%) Fraction of 90 91 Inspired Oxygen (FIO2) 03/10/20 08:53 Breakfast NPO Temperature Pulse Rate Respiratory Rate Respiratory Effort Blood Pressure O2 Sat by Pulse Oximetry (%) Fraction of Inspired Oxygen (FIO2) Laboratory Tests 03/07/20 03/07/20 03/08/20 21:25 21:25 06:45 WBC 24.6 H 21.3 H Syphilis Serology COVID-19 (TARYN) Not detected 03/09/20 03/09/20 03/10/20 06:05 06:05 06:05 WBC 29.2 H 38.4 H* Syphilis Serology Non-reactive COVID-19 (TARYN) Obtunded. WBC elevated.BP noted. NPO. To follow, if appropriate
[2020-03-10] MEDS ORDERED: LACTATED RINGERS SOLUTION 1,000 ML/1,000 ML INFUS.BAG IV SCH (10:30)
--- NOTE | 2020-03-10 10:42 | PN ---
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 (short form) - Note 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: doing poorly lethargic now on bipap Vital Signs Period Temp Pulse Resp BP Sys/Pineda Pulse Ox Last 24 Hr 97.9 F-98.9 F 82-114 16-38 81-139/39-62 77-97 cor-rrr lungs- bilateral rhonchi abd soft,nt ext no edema lacerations dry CBC, BMP 03/10/20 06:05 03/10/20 06:05 Microbiology 03/07/20 21:25 Blood - Peripheral Venous Blood Culture - Preliminary NO GROWTH OBTAINED AFTER 48 HOURS, INCUBATION TO CONTINUE FOR 3 DAYS. 03/07/20 21:25 Blood - Peripheral Venous Blood Culture - Preliminary NO GROWTH OBTAINED AFTER 48 HOURS, INCUBATION TO CONTINUE FOR 3 DAYS. 03/07/20 21:25 Urine - Urine - Catheterized Urine Culture - Final NO GROWTH OBTAINED a/p respiratory failure extensive right sided pneumonia with hypoxia urinary antigens-pending pen allergy escalate antibioitics to vanco/meropenem/zithromax- overall prognosis is poor DNR/DNI l Problem List - Problems (1) Leukocytosis Code(s): D72.829 - ELEVATED WHITE BLOOD CELL COUNT, UNSPECIFIED (2) Pneumonia Code(s): J18.9 - PNEUMONIA, UNSPECIFIED ORGANISM (3) Open leg wound Code(s): S81.809A - UNSPECIFIED OPEN WOUND, UNSPECIFIED LOWER LEG, INIT ENCNTR Qualifiers: Encounter type: initial encounter Laterality: left Qualified Code(s): S81.802A - Unspecified open wound, left lower leg, initial encounter (4) Allergy to multiple antibiotics Code(s): Z88.1 - ALLERGY STATUS TO OTHER ANTIBIOTIC AGENTS STATUS
--- NOTE | 2020-03-10 10:50 | PN ---
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, Physician Chief Complaint: Lethargy Generalized weakness History of Present Illness: Pt was seen my office 2 weeks ago, with c/o lethargy and decreased appetite, pt was encouraged to go to the hospital, however, pt and son refused at that time. Labs drawn in the office 2 weeks ago showed hyperkalemia with K of 6.0, otherwise unremarkable. Pt's son was again instructed to take pt to the hospital. Pt had an unwitnessed fall 2 weeks prior to that which caused mild laceration on her left randle. Pt is severely arthritic, mainly stays in a wheelchair. She sits on a chair at home in the same position for most of the day,which had led to pressure ulcers BL interior aspect of her buttocks. Pt's son was provided with wound care instructions and started on cephalexin po and was also seen by Wound care Physician Vamsi Zaldivar MD at home who also prescribed her topical gentamicin for wound care + allevyn dressing. Pt was highly encouraged to stay off the chair and may be sit in a recliner at home. Pt lives at home alone, son visits her daily. 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 She takes her own medications. Son does meal prep for the pt. Pt takes Oxycodone 5 mg QID PRN for chronic arthritic pain+ Alprazolam 0.5 mg po BID PRN for anxiety. Pt c/o mild SOB upon questioning, which is not her baseline. Concern for aspiration pneumonia given recent change in mental state. She is AxO x 3 with garbled but comprehensible speech. RN notifies pt was coughing when given thin fluids earlier. Obtunded, raises her eyebrows to verbal stimuli, shallow breathing, hypoxic on High stephon 100%. BP trending down Pt has not made any urine since last night Pt did not want any cardiac compressions or intubation DNR/DNI signed- verbal consent obtained over the phone - Current Medication List Current Medications: Active Medications Atorvastatin Calcium (Lipitor -) 20 mg PO HS [facility] Last Admin: 03/09/20 22:32 Dose: 20 mg Documented by: Diltiazem HCl (Cardizem Cd -) 120 mg PO DAILY [facility] Last Admin: 03/10/20 09:03 Dose: Not Given Documented by: Donepezil HCl (Aricept -) 5 mg PO HS [facility] Last Admin: 03/09/20 22:35 Dose: 5 mg Documented by: Furosemide (Lasix Injection -) 40 mg IVPUSH DAILY [facility] Last Admin: 03/09/20 10:22 Dose: 40 mg Documented by: Gabapentin (Neurontin -) 300 mg PO BID [facility] Last Admin: 03/10/20 09:03 Dose: Not Given Documented by: Gentamicin Sulfate (Garamycin 0.1% Ointment -) 1 applic TP BID [facility] Last Admin: 03/10/20 09:14 Dose: 1 applic Documented by: Heparin Sodium (Porcine) (Heparin -) 5,000 unit SQ BID [facility] Last Admin: 03/10/20 09:14 Dose: 5,000 unit Documented by: Vancomycin HCl (Vancomycin (Pre-Docked)) 1,000 mg in 250 mls @ 200 mls/hr IVPB Q24H [facility]; Protocol Last Admin: 03/09/20 22:36 Dose: 200 mls/hr Documented by: Meropenem 1 gm/ Dextrose 100 mls @ 200 mls/hr IVPB Q8H-IV [facility] Last Admin: 03/10/20 09:14 Dose: 200 mls/hr Documented by: Lactated Ringer's (Lactated Ringers Solution) 1,000 ml in 1,000 mls @ 50 mls/hr IV ASDIR [facility] Levothyroxine Sodium (Synthroid -) 25 mcg PO DAILY@0700 [facility] Last Admin: 03/10/20 07:33 Dose: Not Given Documented by: Montelukast Sodium (Singulair -) 10 mg PO [facility] Last Admin: 03/09/20 22:32 Dose: 10 mg Documented by: Multi-Ingredient Ointment (Zinc Oxide) 1 applic TP BID [facility] Last Admin: 03/10/20 09:15 Dose: 1 applic Documented by: Nystatin (Nystop Powder -) 1 applic TP BID [facility] Last Admin: 03/10/20 09:14 Dose: 1 applic Documented by: Pantoprazole Sodium (Protonix Iv) 40 mg IVPUSH DAILY [facility] Last Admin: 03/10/20 09:15 Dose: 40 mg Documented by: Triamcinolone Acetonide (Aristocort 0.1% Ointment -) 1 applic TP BID [facility] Last Admin: 03/10/20 09:13 Dose: 1 applic Documented by: - Objective Vital Signs: Vital Signs Temperature 98.2 F 03/10/20 08:00 Pulse Rate 82 03/10/20 10:26 Respiratory Rate 36 H 03/10/20 10:26 Blood Pressure 91/39 L 03/10/20 10:26 O2 Sat by Pulse Oximetry (%) 77 L 03/10/20 09:00 Constitutional: Yes: Well Nourished, No Distress, Calm Cardiovascular: Yes: Tachycardia Respiratory: Yes: Bradypnea, Diminished, On BiPap Gastrointestinal: Yes: Soft, Hypoactive Bowel Sounds Genitourinary: Yes: Oliguria Musculoskeletal: Yes: Muscle Weakness Edema: No Peripheral Pulses WNL: Yes Wound/Incision: Yes: Dressing Dry and Intact Neurological: Yes: Other (obtunded) Labs: CBC, BMP 03/10/20 06:05 03/10/20 06:05 INR, PTT INR 1.45 (0.83-1.09) H 03/07/20 21:25 Problem List - Problems (1) Failure to thrive Assessment/Plan: -NPO -Speech pathology consult -Goals of care discussed with son Nomi, wants mother to be DNR/DNI -Palliative care consult Problems reviewed: Yes Code(s): GUG7531 - Qualifiers: Failure to thrive age range: in adult Qualified Code(s): R62.7 - Adult failure to thrive (2) Generalized weakness Assessment/Plan: -Likely 2/2 to acute metabolic encephalopathy -Hold of any sedatives Problems reviewed: Yes Code(s): R53.1 - WEAKNESS (3) Pneumonia Assessment/Plan: -ID + Pulmonary consult -CXR reviewed -COVID 19 PCR negative -Afebrile -IV abx -Aspirations precautions -Speech pathology to r/o silent aspiration Problems reviewed: Yes Code(s): J18.9 - PNEUMONIA, UNSPECIFIED ORGANISM (4) Sepsis Assessment/Plan: -ID consult -repeat LA -Leukocytosis noted- follow trend -UC negative -BC: Microbiology 03/07/20 21:25 Blood - Peripheral Venous Blood Culture - Preliminary NO GROWTH OBTAINED AFTER 48 HOURS, INCUBATION TO CONTINUE FOR 3 DAYS. 03/07/20 21:25 Blood - Peripheral Venous Blood Culture - Preliminary NO GROWTH OBTAINED AFTER 48 HOURS, INCUBATION TO CONTINUE FOR 3 DAYS. 03/07/20 21:25 Urine - Urine - Catheterized Urine Culture - Final NO GROWTH OBTAINED Code(s): A41.9 - SEPSIS, UNSPECIFIED ORGANISM (5) COPD (chronic obstructive pulmonary disease) Problems reviewed: Yes Code(s): J44.9 - CHRONIC OBSTRUCTIVE PULMONARY DISEASE, UNSPECIFIED (6) Heart failure Assessment/Plan: -Cardiology consult -Furosemide 40 mg IVP daily -Last Echo 2016 with normal LVEF at 69% with mild tricuspid + mitral regurg + mild aortic sclerosis -Repeat Echo noted -Tele monitor Problems reviewed: Yes Code(s): I50.9 - HEART FAILURE, UNSPECIFIED (7) Arthritis Assessment/Plan: -Hold off Oxycodone for now -Acetaminophen 1000 mg IVPB Q6H PRN Problems reviewed: Yes Code(s): M19.90 - UNSPECIFIED OSTEOARTHRITIS, UNSPECIFIED SITE (8) Altered mental state Assessment/Plan: -CT head moderate atrophy -B12, RPR and FA normal -Thyroid profile normal Problems reviewed: Yes Code(s): R41.82 - ALTERED MENTAL STATUS, UNSPECIFIED Qualifiers: Altered mental status type: unspecified Qualified Code(s): R41.82 - Altered mental status, unspecified (9) Metabolic encephalopathy Problems reviewed: Yes Code(s): G93.41 - METABOLIC ENCEPHALOPATHY (10) Stage II pressure ulcer of sacral region Problems reviewed: Yes Code(s): L89.152 - PRESSURE ULCER OF SACRAL REGION, STAGE 2 Assessment/Plan See problem list Spoke to son Nomi about pt status. will be coming in to see his mother shortly. Palliative care on board
[2020-03-10] MEDS: FUROSEMIDE 40 MG/4 ML INJECTABLE VIAL IVPUSH SCH (10:56)
[2020-03-10] MEDS: LEVOTHYROXINE SODIUM 100 MCG VIAL IVPUSH SCH (12:05)
--- NOTE | 2020-03-10 12:59 | CON.NEP ---
Consult Consult Specialty:: Nephrology Referred by:: LAURA Gar Reason for Consultation:: Acute kidney injury - History of Present Illness Chief Complaint: Weakness/AMS History of Present Illness: This is a 84 year old woman with history of hypertension, hyperlipideia, TIA, chronic lower extremity wounds who presented from [place] with generalized weakness and found to have respiratory failure from PNA and developed STEVEN during her hospital stay. Pt seen and examined at the bedside. She is non-responsive on BIPAP. Son at the bedside. S/p Lasix overnight. Not making much urine as per nurse. BP is low. On Gentle IVF. No fever. No oral intake. 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 Cardio/Vascular: Yes: HTN, Hyperlipdemia Pulmonary: Yes: COPD Gastrointestinal: Yes: GERD Musculoskeletal: Yes: Chronic low back pain Endocrine: Yes: Hypothyroidism - Past Surgical History Past Surgical History: Yes: Cholecystectomy - Alcohol/Substance Use Hx Alcohol Use: No History of Substance Use: reports: None - Smoking History Smoking history: Former smoker Have you smoked in the past 12 months: No Aproximately how many cigarettes per day: 20 If you are a former smoker, when did you quit?: 2016 - Social History Usual Living Arrangement: Alone ADL: Support Services History of Recent Travel: No Home Medications - Allergies Allergies/Adverse Reactions: Allergies Allergy/AdvReac Type Severity Reaction Status Date / Time amoxicillin [Amoxicillin] Allergy Verified 03/07/20 20:12 Penicillins Allergy Verified 03/07/20 20:12 silver sulfadiazine Allergy Verified 03/07/20 20:12 [From Silvadene] escitalopram AdvReac Intermediate Verified 03/07/20 20:12 levofloxacin [Levofloxacin] AdvReac Intermediate Verified 03/07/20 20:12 - Home Medications Home Medications: Ambulatory Orders Bacitracin - [Bacitracin Topical Ointment -] 1 applic TP DAILY #1 tube 06/20/16 Donepezil HCl [Aricept -] 5 mg PO DAILY #30 tablet 12/09/16 Atorvastatin Ca [Lipitor] 20 mg PO HS #30 tablet 08/23/18 Diltiazem Cd [Cardizem Cd -] 120 mg PO DAILY #30 cap.cd.24h 08/23/18 Docusate Sodium [Colace -] 300 mg PO HS #90 capsule 08/23/18 Gabapentin 300 mg PO BID #180 capsule 08/23/18 Levothyroxine [Synthroid -] 25 mcg PO DAILY@0700 #30 tablet 08/23/18 Montelukast Na [Singulair -] 10 mg PO HS #30 tablet 08/23/18 Nystatin Powder [Nystop Powder -] 60 gm TP BID #1 powder 08/23/18 Zinc Oxide 1 applic TP BID #1 tube 08/23/18 Acetaminophen [Tylenol .Regular Strength -] 325 mg PO Q8H PRN tablet 02/23/19 Alprazolam [Xanax] 1 mg PO Q12H PRN tablet MDD 2 02/23/19 Heparin - 5,000 unit SQ BID vial 02/23/19 oxyCODONE HCL [Roxicodone -] 5 mg PO Q8H PRN tablet MDD 3 02/23/19 Family Medical History Family History: Unremarkable Review of Systems Unable to obtain ROS, reason: clinical status Nephrology Consult - Height Height: 5 ft 4 in - Weight Weight: 72.575 kg - BMI Body Mass Index (BMI): 27.4 - Lab Results CBC,BMP: CBC, BMP 03/10/20 06:05 03/10/20 06:05 Anion Gap: Anion Gap Anion Gap 6 MMOL/L (8-16) L 03/10/20 06:05 - Imaging Chest X-ray: Report Reviewed, Image Reviewed - Physical Examination Vital Signs: Vital Signs Temperature 98.2 F 03/10/20 08:00 Pulse Rate 78 03/10/20 12:00 Respiratory Rate 27 H 03/10/20 12:00 Blood Pressure 80/39 L 03/10/20 12:00 O2 Sat by Pulse Oximetry (%) 77 L 03/10/20 09:00 Constitutional: Yes: Well Nourished, No Distress, Calm HENT: Yes: Atraumatic, Normocephalic Neck: Yes: Supple Cardiovascular: Yes: Regular Rate and Rhythm. No: Murmur, Rub Respiratory: Yes: Diminished, On BiPap, Rales Gastrointestinal: Yes: Soft. No: Tenderness Renal/: No: Bladder Distention Extremities: Yes: Erythema. No: Cold, Cool, Cyanosis Edema: No Neurological: Yes: Alert, Oriented Assessment/Plan 84 year old woman with history of hypertension, hyperlipideia, TIA, chronic lower extremity wounds who presented [place] with generalized weakness and found to have respiratory failure from PNA and developed STEVEN during her hospital stay. 1. Acute kidney injury likely from hypoprofusion/hypovolemia 2. Right sided PNA 3. Respiratory failure/Hypercarbic respiratory failure 4. Hypotension/Sepsis 5. Hx of hypertension Check urine studies for STEVEN Give Albumin x 4 to increase circulating volume Increase IVF rate to 2L per day Keep MAP > 65 Hold Lasix for now (low BP, serum bicarb trending up) Supportive care overall prognosis is poor. Thank you Cong Rosa DO
[2020-03-10] MEDS: LACTATED RINGERS SOLUTION 1,000 ML/1,000 ML INFUS.BAG IV SCH (13:08)
[2020-03-10] MEDS: ALBUMIN HUMAN 25% 12.5 GM/50 ML VIAL IVPB SCH ×4 (15:01→16:16)
--- NOTE | 2020-03-10 15:10 | PN ---
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 (short form) - Note 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: Lethargic but arousable on NIPPV support. DNR/DNI No overall improvement in her condition. Intake & Output 03/07/20 03/08/20 03/09/20 03/10/20 23:59 23:59 23:59 23:59 Intake Total 600 Balance 600 Weight 160 lb 160 lb 160 lb 160 lb Last Vital Signs Temp Pulse Resp BP Pulse Ox 98.2 F 88 32 H 101/43 L 77 L 03/10/20 08:00 03/10/20 14:00 03/10/20 14:00 03/10/20 14:00 03/10/20 09:00 Active Medications Atorvastatin Calcium (Lipitor -) 20 mg PO HS [facility] Last Admin: 03/09/20 22:32 Dose: 20 mg Documented by: Diltiazem HCl (Cardizem Cd -) 120 mg PO DAILY [facility] Last Admin: 03/10/20 09:03 Dose: Not Given Documented by: Donepezil HCl (Aricept -) 5 mg PO HS [facility] Last Admin: 03/09/20 22:35 Dose: 5 mg Documented by: Furosemide (Lasix Injection -) 40 mg IVPUSH DAILY [facility] Last Admin: 03/10/20 10:56 Dose: Not Given Documented by: Gabapentin (Neurontin -) 300 mg PO BID [facility] Last Admin: 03/10/20 09:03 Dose: Not Given Documented by: Gentamicin Sulfate (Garamycin 0.1% Ointment -) 1 applic TP BID [facility] Last Admin: 03/10/20 09:14 Dose: 1 applic Documented by: Heparin Sodium (Porcine) (Heparin -) 5,000 unit SQ BID [facility] Last Admin: 03/10/20 09:14 Dose: 5,000 unit Documented by: Vancomycin HCl (Vancomycin (Pre-Docked)) 1,000 mg in 250 mls @ 200 mls/hr IVPB Q24H [facility]; Protocol Last Admin: 03/09/20 22:36 Dose: 200 mls/hr Documented by: Meropenem 1 gm/ Dextrose 100 mls @ 200 mls/hr IVPB Q8H-IV [facility] Last Admin: 03/10/20 09:14 Dose: 200 mls/hr Documented by: Lactated Ringer's (Lactated Ringers Solution) 1,000 ml in 1,000 mls @ 84 mls/hr IV ASDIR [facility] Last Admin: 03/10/20 13:08 Dose: 84 mls/hr Documented by: Levothyroxine Sodium (Synthroid Injection -) 12.5 mcg IVPUSH 0700 [facility] Last Admin: 03/10/20 12:05 Dose: 12.5 mcg Documented by: Montelukast Sodium (Singulair -) 10 mg PO HS [facility] Last Admin: 03/09/20 22:32 Dose: 10 mg Documented by: Multi-Ingredient Ointment (Zinc Oxide) 1 applic TP BID [facility] Last Admin: 03/10/20 09:15 Dose: 1 applic Documented by: Nystatin (Nystop Powder -) 1 applic TP BID [facility] Last Admin: 03/10/20 09:14 Dose: 1 applic Documented by: Pantoprazole Sodium (Protonix Iv) 40 mg IVPUSH DAILY [facility] Last Admin: 03/10/20 09:15 Dose: 40 mg Documented by: Triamcinolone Acetonide (Aristocort 0.1% Ointment -) 1 applic TP BID [facility] Last Admin: 03/10/20 09:13 Dose: 1 applic Documented by: Constitutional: Yes: Lethargic on NIPPV Eyes: Yes: Conjunctiva Clear, EOM Intact HENT: Yes: Atraumatic, Normocephalic Neck: Yes: Supple, Trachea Midline Cardiovascular: Yes: Regular Rate and Rhythm Respiratory: Yes: NIPPV support, bilateral scattered Rhonchi ...Clubbing: No Gastrointestinal: Yes: Normal Bowel Sounds, Soft. No: Tenderness Edema: No Neurological: Yes: Lethargy Labs: Laboratory Results - last 24 hr 03/10/20 03/10/20 06:05 06:05 WBC 38.4 H* RBC 4.39 Hgb 12.7 Hct 43.7 MCV 99.6 H MCH 29.0 MCHC 29.1 L RDW 16.2 H Plt Count 531 H MPV 8.1 Absolute Neuts (auto) 37.0 H Neutrophils % 96.2 H Neutrophils % (Manual) 41.9 L Band Neutrophils % 40.0 Lymphocytes % 0.7 L Lymphocytes % (Manual) 0.9 L Monocytes % 2.9 L Monocytes % (Manual) 3 L Eosinophils % 0.1 Eosinophils % (Manual) 0.0 Basophils % 0.1 Basophils % (Manual) 0.0 Myelocytes % (Man) 2 D Promyelocytes % (Man) 0 Blast Cells % (Manual) 0 Nucleated RBC % 0 Metamyelocytes 12 H D Hypochromia 0 Platelet Estimate Increased Platelet Comment Present Polychromasia 1+ Poikilocytosis 0 Anisocytosis 1+ Microcytosis 0 Macrocytosis 1+ Sodium 139 Potassium 4.1 Chloride 95 L Carbon Dioxide 38 H Anion Gap 6 L BUN 26.9 H Creatinine 1.5 H Est GFR (CKD-EPI)AfAm 36.70 Est GFR (CKD-EPI)NonAf 31.66 Random Glucose 137 H Calcium 9.7 Total Bilirubin 0.5 AST 42 H ALT 14 Alkaline Phosphatase 103 Total Protein 6.6 Albumin 1.7 L Imaging - Results Chest X-ray: Report Reviewed, Image Reviewed (right sided consolidation) Assessment/Plan Acute Hypoxic and Hypercapneic Respiratory Failure Pneumonia HTN Hyperlipidemia h/o TIA - NIPPV support - IV antibiotics - f/u cultures, serologies - aspiration precautions - inhaled bronchodilators - DVT prophylaxis - prognosis guarded - DNR / DNI Continue family discussions for GOC Dr Coulter
[2020-03-10] MEDS: DONEPEZIL HCL 5 MG TABLET (FP) PO SCH (21:24)
[2020-03-10] MEDS: MONTELUKAST NA 10 MG TABLET PO SCH (21:25)
[2020-03-10] MEDS: ATORVASTATIN CA 20 MG TABLET (FP) PO SCH (21:25)
[2020-03-10] MEDS: VANCOMYCIN 1 GRAM (PRE-DOCKED) 1,000 MG/250 ML BAG IVPB SCH (21:45)
[2020-03-11] MEDS: MEROPENEM 1 GM in DEXTROSE 5%-WATER 100 ML IVPB SCH ×2 (01:25→09:29)
[2020-03-11] MEDS ORDERED: SODIUM CHLORIDE 0.9% 500 ML INFUS.BAG IV ONE (04:52)
[2020-03-11] MEDS ORDERED: PT OWN MED DRAWER 7, Y5N ONE (06:16)
[2020-03-11] MEDS: LEVOTHYROXINE SODIUM 100 MCG VIAL IVPUSH SCH (06:17)
[2020-03-11 07:00] LABS: BASO % 0.2 % (0-2.0); EOS % 2.5 % (0-4.5); HEMATOCRIT 41.1 % (32.4-45.2); HEMOGLOBIN 11.8 GM/dL (10.7-15.3); LYMPH % 1.8 % (8-40); MCH 29.5 pg (25.7-33.7); MCHC 28.6 g/dl (32.0-36.0); MEAN CELL VOLUME 103.1 fl (80-96); MEAN PLT VOLUME 8.5 fl (7.5-11.1); MONO % 4.2 % (3.8-10.2); NEUT % 91.3 % (42.8-82.8); PLATELET COUNT 341 K/MM3 (134-434); RBC 3.99 M/mm3 (3.60-5.2); RDW 16.1 % (11.6-15.6)
--- NOTE | 2020-03-11 07:25 | PN ---
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, Physician History of Present Illness: pulmonary unresponsive on bipap,-resp distress - Current Medication List Current Medications: Active Medications Gentamicin Sulfate (Garamycin 0.1% Ointment -) 1 applic TP BID [facility] Last Admin: 03/10/20 21:47 Dose: 1 applic Documented by: Heparin Sodium (Porcine) (Heparin -) 5,000 unit SQ BID [facility] Last Admin: 03/10/20 21:34 Dose: 5,000 unit Documented by: Vancomycin HCl (Vancomycin (Pre-Docked)) 1,000 mg in 250 mls @ 200 mls/hr IVPB Q24H [facility]; Protocol Last Admin: 03/10/20 21:45 Dose: 200 mls/hr Documented by: Meropenem 1 gm/ Dextrose 100 mls @ 200 mls/hr IVPB Q8H-IV [facility] Last Admin: 03/11/20 01:25 Dose: 200 mls/hr Documented by: Lactated Ringer's (Lactated Ringers Solution) 1,000 ml in 1,000 mls @ 84 mls/hr IV ASDIR [facility] Last Admin: 03/10/20 13:08 Dose: 84 mls/hr Documented by: Levothyroxine Sodium (Synthroid Injection -) 12.5 mcg IVPUSH 0700 [facility] Last Admin: 03/11/20 06:17 Dose: 12.5 mcg Documented by: Multi-Ingredient Ointment (Zinc Oxide) 1 applic TP BID [facility] Last Admin: 03/10/20 21:48 Dose: 1 applic Documented by: Nystatin (Nystop Powder -) 1 applic TP BID [facility] Last Admin: 03/10/20 21:47 Dose: 1 applic Documented by: Pantoprazole Sodium (Protonix Iv) 40 mg IVPUSH DAILY [facility] Last Admin: 03/10/20 09:15 Dose: 40 mg Documented by: Triamcinolone Acetonide (Aristocort 0.1% Ointment -) 1 applic TP BID [facility] Last Admin: 03/10/20 21:47 Dose: 1 applic Documented by: - Objective Vital Signs: Vital Signs Temperature 96.8 F L 03/11/20 06:22 Pulse Rate 69 03/11/20 06:22 Respiratory Rate 28 H 03/11/20 06:22 Blood Pressure 78/43 L 03/11/20 06:22 O2 Sat by Pulse Oximetry (%) 91 L 03/11/20 04:34 Constitutional: Yes: Well Nourished, Other (unresponsive) Eyes: Yes: WNL HENT: Yes: WNL Neck: Yes: WNL Cardiovascular: Yes: Regular Rate and Rhythm, S1, S2 Respiratory: Yes: On BiPap Gastrointestinal: Yes: Normal Bowel Sounds, Soft Extremities: Yes: WNL Edema: No Labs: CBC, BMP Laboratory Tests 03/11/20 10:07 BUN 47.5 H Creatinine 3.1 H AST 223 H ALT 65 H Alkaline Phosphatase 118 H Assessment/Plan Assessment/Plan Acute Hypoxic and Hypercapneic Respiratory Failure Pneumonia HTN Hyperlipidemia h/o TIA STEVEN - NIPPV support - IV antibiotics - aspiration precautions - inhaled bronchodilators - DVT prophylaxis - prognosis poor - DNR / DNI - COMFORT MEASURES DR HURD
[2020-03-11] MEDS ORDERED: MEROPENEM 1 GM VIAL (RESTRICTED TO ID) IVPB ONE (09:10)
[2020-03-11] MEDS ORDERED: DEXTROSE 5%-WATER 100 ML IVPB ONE ×2 (09:11→21:02)
[2020-03-11] MEDS: GENTAMICIN SO4 0.1% TOPICAL OINTMENT 15 GM/TUBE TUBE TP SCH ×2 (09:28→21:21)
[2020-03-11] MEDS: TRIAMCINOLONE ACET 0.1% OINT 15 GM TUBE TP SCH ×2 (09:28→21:21)
[2020-03-11] MEDS: HEPARIN NA (PORCINE) 5,000 UNITS/ML 1ML VIAL SQ SCH ×2 (09:28→21:08)
[2020-03-11] MEDS: PANTOPRAZOLE SODIUM 40 MG VIAL IVPUSH SCH (09:29)
[2020-03-11] MEDS: ZINC OXIDE 20% TOPICAL OINTMENT 30 GM TUBE TP SCH ×2 (09:29→21:21)
[2020-03-11] MEDS: NYSTATIN POWDER 100,000 UNITS/GM - 15 GM TOPICAL POWDER TP SCH ×2 (09:29→21:21)
[2020-03-11 10:49] LABS: ALBUMIN 2.3 g/dl (3.4-5.0); BILIRUBIN,TOTAL 0.6 mg/dL (0.2-1); BLOOD UREA NITROGEN 47.5 mg/dL (7-18); CALCIUM 9.2 mg/dL (8.5-10.1); CREATININE 3.1 mg/dL (0.55-1.3); POTASSIUM 4.5 mmol/L (3.5-5.1); TOT PROT 6.1 g/dl (6.4-8.2)
[2020-03-11 11:02] LABS: ANISOCYTOSIS 1+; MACROCYTOSIS 1+; OVALOCYTE 1+; PLATELET ESTIMATE NORMAL
--- NOTE | 2020-03-11 11:29 | PN ---
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 (short form) - Note 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: doing poorly unresponsive now on bipap son at bedside Vital Signs Period Temp Pulse Resp BP Sys/Pineda Pulse Ox Last 24 Hr 96.2 F-97.1 F 45-88 18-39 78-105/35-64 91-96 cor-rrr lungs bilateral rhonchi abd soft,nt ext no edema CBC, BMP 03/11/20 06:00 03/11/20 10:07 Microbiology 03/10/20 08:05 Nares - Mrsa Screen - Left MRSA Screen - Final NO MRSA ISOLATED 03/10/20 08:05 Nares - Mrsa Screen - Right MRSA Screen - Final NO MRSA ISOLATED 03/07/20 21:25 Blood - Peripheral Venous Blood Culture - Preliminary NO GROWTH OBTAINED AFTER 72 HOURS, INCUBATION TO CONTINUE FOR 2 DAYS. 03/07/20 21:25 Blood - Peripheral Venous Blood Culture - Preliminary NO GROWTH OBTAINED AFTER 72 HOURS, INCUBATION TO CONTINUE FOR 2 DAYS. 03/09/20 17:30 Urine For Antigen Detection Legionella Antigen - Preliminary 03/09/20 17:30 Urine For Antigen Detection Streptococcus pneumoniae Antigen (M - Preliminary 03/07/20 21:25 Urine - Urine - Catheterized Urine Culture - Final NO GROWTH OBTAINED a/p respiratory failure extensive right sided pneumonia with hypoxia acute renal failure urinary antigens-negative pen allergy adjust antibiotics for renal failure d/w son at bedside DNR/DNI l Problem List - Problems (1) Leukocytosis Code(s): D72.829 - ELEVATED WHITE BLOOD CELL COUNT, UNSPECIFIED (2) Pneumonia Code(s): J18.9 - PNEUMONIA, UNSPECIFIED ORGANISM (3) Open leg wound Code(s): S81.809A - UNSPECIFIED OPEN WOUND, UNSPECIFIED LOWER LEG, INIT ENCNTR Qualifiers: Encounter type: initial encounter Laterality: left Qualified Code(s): S81.802A - Unspecified open wound, left lower leg, initial encounter (4) Allergy to multiple antibiotics Code(s): Z88.1 - ALLERGY STATUS TO OTHER ANTIBIOTIC AGENTS STATUS
--- NOTE | 2020-03-11 11:36 | PN ---
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, Physician Chief Complaint: Acute Kidney injury History of Present Illness: Seen and examined in the ICU On BIPAP at 100% FiO2 not making much urine as per nurse on IVF Family at the bedside - Current Medication List Current Medications: Active Medications Gentamicin Sulfate (Garamycin 0.1% Ointment -) 1 applic TP BID [facility] Last Admin: 03/11/20 09:28 Dose: 1 applic Documented by: Heparin Sodium (Porcine) (Heparin -) 5,000 unit SQ BID [facility] Last Admin: 03/11/20 09:28 Dose: 5,000 unit Documented by: Lactated Ringer's (Lactated Ringers Solution) 1,000 ml in 1,000 mls @ 84 mls/hr IV ASDIR [facility] Last Admin: 03/10/20 13:08 Dose: 84 mls/hr Documented by: Meropenem 500 mg/ Dextrose 100 mls @ 200 mls/hr IVPB Q12H [facility] Levothyroxine Sodium (Synthroid Injection -) 12.5 mcg IVPUSH 0700 [facility] Last Admin: 03/11/20 06:17 Dose: 12.5 mcg Documented by: Multi-Ingredient Ointment (Zinc Oxide) 1 applic TP BID [facility] Last Admin: 03/11/20 09:29 Dose: 1 applic Documented by: Nystatin (Nystop Powder -) 1 applic TP BID [facility] Last Admin: 03/11/20 09:29 Dose: 1 applic Documented by: Pantoprazole Sodium (Protonix Iv) 40 mg IVPUSH DAILY [facility] Last Admin: 03/11/20 09:29 Dose: 40 mg Documented by: Triamcinolone Acetonide (Aristocort 0.1% Ointment -) 1 applic TP BID [facility] Last Admin: 03/11/20 09:28 Dose: 1 applic Documented by: - Objective Vital Signs: Vital Signs Temperature 96.2 F L 03/11/20 10:00 Pulse Rate 65 03/11/20 10:00 Respiratory Rate 35 H 03/11/20 10:00 Blood Pressure 98/39 L 03/11/20 10:00 O2 Sat by Pulse Oximetry (%) 95 03/11/20 09:00 Constitutional: Yes: No Distress Cardiovascular: Yes: Regular Rate and Rhythm Respiratory: Yes: Diminished, On BiPap Gastrointestinal: Yes: Soft Extremities: No: Cyanosis Edema: No Neurological: Yes: Lethargy Labs: CBC, BMP 03/11/20 06:00 03/11/20 10:07 INR, PTT INR 1.45 (0.83-1.09) H 03/07/20 21:25 Assessment/Plan 84 year old woman with history of hypertension, hyperlipideia, TIA, chronic lower extremity wounds who presented [place] with generalized weakness and found to have respiratory failure from PNA and developed STEVEN during her hospital stay. 1. Acute kidney injury likely from hypoprofusion/hypovolemia 2. Right sided PNA 3. Respiratory failure/Hypercarbic respiratory failure 4. Hypotension/Sepsis 5. Hx of hypertension Renal function continues to worsen and urine output is poor (no actual recorded value) no over electrolyte or acid/base disturbances noted as per family wishes there will be no aggressive measures continue LR at present rate, can also give small bolus if MAP dips below 65 supportive care continue antibiotics as per ID prognosis remains poor Thank you Cong Rosa DO
--- NOTE | 2020-03-11 12:06 | PN ---
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 (short form) - Note 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: Seen and examined in SDU Pt remains on NIPPV 100% DNR/DNI No aggressive measures per Family GOC decreased u/o, increased Scr Son bedside Pt looks comfortable Active Medications Gentamicin Sulfate (Garamycin 0.1% Ointment -) 1 applic TP BID [facility] Last Admin: 03/11/20 09:28 Dose: 1 applic Documented by: Heparin Sodium (Porcine) (Heparin -) 5,000 unit SQ BID [facility] Last Admin: 03/11/20 09:28 Dose: 5,000 unit Documented by: Lactated Ringer's (Lactated Ringers Solution) 1,000 ml in 1,000 mls @ 84 mls/hr IV ASDIR [facility] Last Admin: 03/10/20 13:08 Dose: 84 mls/hr Documented by: Meropenem 500 mg/ Dextrose 100 mls @ 200 mls/hr IVPB Q12H [facility] Levothyroxine Sodium (Synthroid Injection -) 12.5 mcg IVPUSH 0700 [facility] Last Admin: 03/11/20 06:17 Dose: 12.5 mcg Documented by: Multi-Ingredient Ointment (Zinc Oxide) 1 applic TP BID [facility] Last Admin: 03/11/20 09:29 Dose: 1 applic Documented by: Nystatin (Nystop Powder -) 1 applic TP BID [facility] Last Admin: 03/11/20 09:29 Dose: 1 applic Documented by: Pantoprazole Sodium (Protonix Iv) 40 mg IVPUSH DAILY [facility] Last Admin: 03/11/20 09:29 Dose: 40 mg Documented by: Triamcinolone Acetonide (Aristocort 0.1% Ointment -) 1 applic TP BID [facility] Last Admin: 03/11/20 09:28 Dose: 1 applic Documented by: Vital Signs Period Temp Pulse Resp BP Sys/Pineda Pulse Ox Last 24 Hr 96.2 F-97.1 F 45-88 18-39 78-105/35-64 91-96 Intake & Output 03/08/20 03/09/20 03/10/20 03/11/20 23:59 23:59 23:59 23:59 Intake Total 1554 1558 Balance 1554 1558 Weight 72.575 kg 72.575 kg 72.575 kg CBC, BMP 03/11/20 06:00 07/11/20 10:07 Exam: on NIPPV, asleep, comfortable Neuro: RASS -4 Pulm: coarse rhonchi cv: RRR Abd: SNTND Ext: WWP Assessment/Plan Acute Hypoxic and Hypercapneic Respiratory Failure Pneumonia HTN Hyperlipidemia h/o TIA - NIPPV support - IV antibiotics - f/u cultures, serologies - aspiration precautions - inhaled bronchodilators - DVT prophylaxis - prognosis poor given progressive renal failure - DNR / DNI. no invasive procedures Boerem ACNP Pulm/CCM
--- NOTE | 2020-03-11 14:56 | PN ---
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, Physician Chief Complaint: PATIENT SEEN IN AM ON BIPAP CUAUHTEMOC LARSON IN THE ROOM DISCUSSED CASE - Current Medication List Current Medications: Active Medications Gentamicin Sulfate (Garamycin 0.1% Ointment -) 1 applic TP BID [facility] Last Admin: 03/11/20 09:28 Dose: 1 applic Documented by: Heparin Sodium (Porcine) (Heparin -) 5,000 unit SQ BID [facility] Last Admin: 03/11/20 09:28 Dose: 5,000 unit Documented by: Lactated Ringer's (Lactated Ringers Solution) 1,000 ml in 1,000 mls @ 84 mls/hr IV ASDIR [facility] Last Admin: 03/10/20 13:08 Dose: 84 mls/hr Documented by: Meropenem 500 mg/ Dextrose 100 mls @ 200 mls/hr IVPB Q12H [facility] Levothyroxine Sodium (Synthroid Injection -) 12.5 mcg IVPUSH 0700 [facility] Last Admin: 03/11/20 06:17 Dose: 12.5 mcg Documented by: Multi-Ingredient Ointment (Zinc Oxide) 1 applic TP BID [facility] Last Admin: 03/11/20 09:29 Dose: 1 applic Documented by: Nystatin (Nystop Powder -) 1 applic TP BID [facility] Last Admin: 03/11/20 09:29 Dose: 1 applic Documented by: Pantoprazole Sodium (Protonix Iv) 40 mg IVPUSH DAILY [facility] Last Admin: 03/11/20 09:29 Dose: 40 mg Documented by: Triamcinolone Acetonide (Aristocort 0.1% Ointment -) 1 applic TP BID [facility] Last Admin: 03/11/20 09:28 Dose: 1 applic Documented by: - Objective Vital Signs: Vital Signs Temperature 96.2 F L 03/11/20 10:00 Pulse Rate 64 03/11/20 14:00 Respiratory Rate 35 H 03/11/20 14:00 Blood Pressure 96/40 L 03/11/20 14:00 O2 Sat by Pulse Oximetry (%) 95 03/11/20 11:54 Constitutional: Yes: Severe Distress Cardiovascular: Yes: Pulse Irregular Respiratory: Yes: Diminished, On BiPap Gastrointestinal: Yes: Soft Genitourinary: Yes: Roper Present Musculoskeletal: Yes: Muscle Weakness Labs: CBC, BMP 03/11/20 06:00 03/11/20 10:07 INR, PTT INR 1.45 (0.83-1.09) H 03/07/20 21:25 Problem List - Problems (1) Failure to thrive Code(s): [id number] - Qualifiers: Failure to thrive age range: in adult Qualified Code(s): R62.7 - Adult failure to thrive (2) Generalized weakness Code(s): R53.1 - WEAKNESS (3) Metabolic encephalopathy Code(s): G93.41 - METABOLIC ENCEPHALOPATHY (4) Pneumonia Code(s): J18.9 - PNEUMONIA, UNSPECIFIED ORGANISM Assessment/Plan POOR OVERALL PROGNOSIS DISCUSSED WITH CUAUHTEMOC LARSON WHO DOES NOT WANT ANY AGGRESSIVE INTERVENTIONS NO LABS OR IV. BIPAP SUPPORT PAIN CONTROL
[2020-03-11] MEDS: LACTATED RINGERS SOLUTION 1,000 ML/1,000 ML INFUS.BAG IV SCH (18:34)
[2020-03-11] MEDS ORDERED: MEROPENEM 500 MG VIAL (RESTRICTED TO ID) IVPB ONE (21:02)
[2020-03-11] MEDS: MEROPENEM 500 MG in DEXTROSE 5%-WATER 100 ML IVPB SCH (21:22)
[2020-03-12 06:23] LABS: BASO % 0.1 % (0-2.0); EOS % 15.4 % (0-4.5); HEMATOCRIT 38.8 % (32.4-45.2); LYMPH % 1.3 % (8-40); MCH 29.4 pg (25.7-33.7); MCHC 28.5 g/dl (32.0-36.0); MEAN CELL VOLUME 103.1 fl (80-96); MEAN PLT VOLUME 8.2 fl (7.5-11.1); MONO % 0.9 % (3.8-10.2); NEUT % 82.3 % (42.8-82.8); PLATELET COUNT 300 K/MM3 (134-434); RBC 3.76 M/mm3 (3.60-5.2); WHITE BLOOD COUNT 27.8 K/mm3 (4.0-10.0)
[2020-03-12] MEDS ORDERED: PT OWN MED DRAWER 7, Y5N ONE (06:28)
[2020-03-12] MEDS: LEVOTHYROXINE SODIUM 100 MCG VIAL IVPUSH SCH (06:29)
[2020-03-12 06:48] LABS: ALBUMIN 2.1 g/dl (3.4-5.0); BILIRUBIN,TOTAL 0.7 mg/dL (0.2-1); CALCIUM 8.9 mg/dL (8.5-10.1); CREATININE 3.8 mg/dL (0.55-1.3); POTASSIUM 4.1 mmol/L (3.5-5.1); TOT PROT 5.7 g/dl (6.4-8.2)
--- NOTE | 2020-03-12 07:41 | PN ---
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 (short form) - Note 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: 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: Seen and examined in ICU Pt remains on NIPPV 100% DNR/DNI No aggressive measures per Family GOC decreased u/o, increased Scr Pt looks comfortable Active Medications Gentamicin Sulfate (Garamycin 0.1% Ointment -) 1 applic TP BID [facility] Last Admin: 03/12/20 09:40 Dose: 1 applic Documented by: Heparin Sodium (Porcine) (Heparin -) 5,000 unit SQ BID [facility] Last Admin: 03/12/20 09:38 Dose: 5,000 unit Documented by: Meropenem 500 mg/ Dextrose 100 mls @ 200 mls/hr IVPB Q12H [facility] Last Admin: 03/12/20 09:38 Dose: 200 mls/hr Documented by: Lactated Ringer's (Lactated Ringers Solution) 1,000 ml in 1,000 mls @ 100 mls/hr IV ASDIR [facility] Levothyroxine Sodium (Synthroid Injection -) 12.5 mcg IVPUSH 0700 [facility] Last Admin: 03/12/20 06:29 Dose: 12.5 mcg Documented by: Multi-Ingredient Ointment (Zinc Oxide) 1 applic TP BID [facility] Last Admin: 03/12/20 09:40 Dose: 1 applic Documented by: Nystatin (Nystop Powder -) 1 applic TP BID [facility] Last Admin: 03/12/20 09:40 Dose: 1 applic Documented by: Pantoprazole Sodium (Protonix Iv) 40 mg IVPUSH DAILY [facility] Last Admin: 03/12/20 09:38 Dose: 40 mg Documented by: Triamcinolone Acetonide (Aristocort 0.1% Ointment -) 1 applic TP BID [facility] Last Admin: 03/12/20 09:39 Dose: 1 applic Documented by: Vital Signs Period Temp Pulse Resp BP Sys/Pineda Pulse Ox Last 24 Hr 90.7 F-97.9 F 64-81 22-38 84-109/37-43 94-98 Intake & Output 03/09/20 03/10/20 03/11/20 03/12/20 23:59 23:59 23:59 23:59 Intake Total 1554 2766 1024 Balance 1554 2766 1024 Weight 72.575 kg 72.575 kg CBC, BMP 03/12/20 06:00 03/12/20 06:00 Exam: on NIPPV, asleep, comfortable Neuro: unresponsive Pulm: coarse rhonchi cv: RRR Abd: SNTND Ext: WWP Assessment/Plan Acute Hypoxic and Hypercapneic Respiratory Failure Pneumonia HTN Hyperlipidemia h/o TIA STEVEN - NIPPV support - IV antibiotics - f/u cultures, serologies - aspiration precautions - inhaled bronchodilators - DVT prophylaxis - IVF as per renal - Monitor I/O - Renal recs appreciated - DNR / DNI. no invasive procedures Nita Contreras ACNP Pulm/CCM
[2020-03-12 09:09] LABS: ANISOCYTOSIS 1+; MACROCYTOSIS 0; OVALOCYTE 1+; PLATELET ESTIMATE NORMAL; TEAR DROP CELLS 1+; TOXIC GRANULATION 2+
[2020-03-12] MEDS ORDERED: MEROPENEM 500 MG VIAL (RESTRICTED TO ID) IVPB ONE ×2 (09:36→20:54)
[2020-03-12] MEDS ORDERED: DEXTROSE 5%-WATER 100 ML IVPB ONE ×2 (09:36→20:54)
[2020-03-12] MEDS: MEROPENEM 500 MG in DEXTROSE 5%-WATER 100 ML IVPB SCH ×2 (09:38→21:11)
[2020-03-12] MEDS: HEPARIN NA (PORCINE) 5,000 UNITS/ML 1ML VIAL SQ SCH ×2 (09:38→21:11)
[2020-03-12] MEDS: PANTOPRAZOLE SODIUM 40 MG VIAL IVPUSH SCH (09:38)
[2020-03-12] MEDS: TRIAMCINOLONE ACET 0.1% OINT 15 GM TUBE TP SCH ×2 (09:39→21:11)
[2020-03-12] MEDS: ZINC OXIDE 20% TOPICAL OINTMENT 30 GM TUBE TP SCH ×2 (09:40→21:11)
[2020-03-12] MEDS: NYSTATIN POWDER 100,000 UNITS/GM - 15 GM TOPICAL POWDER TP SCH ×2 (09:40→21:11)
[2020-03-12] MEDS: GENTAMICIN SO4 0.1% TOPICAL OINTMENT 15 GM/TUBE TUBE TP SCH ×2 (09:40→21:11)
[2020-03-12] MEDS: LACTATED RINGERS SOLUTION 1,000 ML/1,000 ML INFUS.BAG IV SCH (09:41)
--- NOTE | 2020-03-12 09:45 | PN ---
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 (short form) - Note 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: remains on bipap unresponsive Vital Signs Period Temp Pulse Resp BP Sys/Pineda Pulse Ox Last 24 Hr 96.0 F-97.9 F 64-81 22-38 84-109/37-43 94-97 cor-rrr llungs clear abd soft,nt ext no edema CBC, BMP 03/12/20 06:00 03/12/20 06:00 Microbiology 03/07/20 21:25 Blood - Peripheral Venous Blood Culture - Preliminary NO GROWTH OBTAINED AFTER 96 HOURS, INCUBATION TO CONTINUE FOR 1 DAYS. 03/07/20 21:25 Blood - Peripheral Venous Blood Culture - Preliminary NO GROWTH OBTAINED AFTER 96 HOURS, INCUBATION TO CONTINUE FOR 1 DAYS. 03/10/20 08:05 Nares - Mrsa Screen - Left MRSA Screen - Final NO MRSA ISOLATED 03/10/20 08:05 Nares - Mrsa Screen - Right MRSA Screen - Final NO MRSA ISOLATED a/p respiratory failure extensive right sided pneumonia with hypoxia acute renal failure pen allergy continue meropenem adjusted for renal failure dnr/dni continue supportive care l Problem List - Problems (1) Leukocytosis Code(s): D72.829 - ELEVATED WHITE BLOOD CELL COUNT, UNSPECIFIED (2) Pneumonia Code(s): J18.9 - PNEUMONIA, UNSPECIFIED ORGANISM (3) Open leg wound Code(s): S81.809A - UNSPECIFIED OPEN WOUND, UNSPECIFIED LOWER LEG, INIT ENCNTR Qualifiers: Encounter type: initial encounter Laterality: left Qualified Code(s): S81.802A - Unspecified open wound, left lower leg, initial encounter (4) Allergy to multiple antibiotics Code(s): Z88.1 - ALLERGY STATUS TO OTHER ANTIBIOTIC AGENTS STATUS
--- NOTE | 2020-03-12 10:32 | PN ---
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, Physician Chief Complaint: Acute Kidney injury History of Present Illness: Seen and examined in the ICU On BIPAP at 100% FiO2 unresponsive on IVF - Current Medication List Current Medications: Active Medications Gentamicin Sulfate (Garamycin 0.1% Ointment -) 1 applic TP BID [facility] Last Admin: 03/12/20 09:40 Dose: 1 applic Documented by: Heparin Sodium (Porcine) (Heparin -) 5,000 unit SQ BID [facility] Last Admin: 03/12/20 09:38 Dose: 5,000 unit Documented by: Lactated Ringer's (Lactated Ringers Solution) 1,000 ml in 1,000 mls @ 84 mls/hr IV ASDIR [facility] Last Admin: 03/12/20 09:41 Dose: 84 mls/hr Documented by: Meropenem 500 mg/ Dextrose 100 mls @ 200 mls/hr IVPB Q12H [facility] Last Admin: 03/12/20 09:38 Dose: 200 mls/hr Documented by: Levothyroxine Sodium (Synthroid Injection -) 12.5 mcg IVPUSH 0700 [facility] Last Admin: 03/12/20 06:29 Dose: 12.5 mcg Documented by: Multi-Ingredient Ointment (Zinc Oxide) 1 applic TP BID [facility] Last Admin: 03/12/20 09:40 Dose: 1 applic Documented by: Nystatin (Nystop Powder -) 1 applic TP BID [facility] Last Admin: 03/12/20 09:40 Dose: 1 applic Documented by: Pantoprazole Sodium (Protonix Iv) 40 mg IVPUSH DAILY [facility] Last Admin: 03/12/20 09:38 Dose: 40 mg Documented by: Triamcinolone Acetonide (Aristocort 0.1% Ointment -) 1 applic TP BID [facility] Last Admin: 03/12/20 09:39 Dose: 1 applic Documented by: - Objective Vital Signs: Vital Signs Temperature 90.7 F L 03/12/20 10:00 Pulse Rate 74 03/12/20 08:37 Respiratory Rate 28 H 03/12/20 10:00 Blood Pressure 108/43 L 03/12/20 10:00 O2 Sat by Pulse Oximetry (%) 98 03/12/20 09:00 Constitutional: Yes: No Distress HENT: Yes: Atraumatic, Tonsillar Exudate Cardiovascular: Yes: Regular Rate and Rhythm Respiratory: Yes: Diminished, On BiPap Extremities: No: Cyanosis Edema: No Labs: CBC, BMP 03/12/20 06:00 03/12/20 06:00 INR, PTT INR 1.45 (0.83-1.09) H 03/07/20 21:25 Assessment/Plan 84 year old woman with history of hypertension, hyperlipideia, TIA, chronic lower extremity wounds who presented from [place] with generalized weakness and found to have respiratory failure from PNA and developed STEVEN during her hospital stay. 1. Acute kidney injury likely from hypoprofusion/hypovolemia 2. Right sided PNA 3. Respiratory failure/Hypercarbic respiratory failure 4. Hypotension/Sepsis 5. Hx of hypertension Renal function w/o improvement no over electrolyte or acid/base disturbances noted as per family wishes there will be no aggressive measures Increase LR to 100cc per hour supportive care continue antibiotics as per ID prognosis remains poor DNR/DNI Thank you Cong Rosa DO
[2020-03-12] MEDS ORDERED: LACTATED RINGERS SOLUTION 1,000 ML/1,000 ML INFUS.BAG IV SCH (10:34)
--- NOTE | 2020-03-12 11:30 | PN ---
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, Physician Chief Complaint: UNRESPONSIVE ON BIPAP DNR/DNI NO EVENTS OVERNIGHT - Current Medication List Current Medications: Active Medications Gentamicin Sulfate (Garamycin 0.1% Ointment -) 1 applic TP BID [facility] Last Admin: 03/12/20 09:40 Dose: 1 applic Documented by: Heparin Sodium (Porcine) (Heparin -) 5,000 unit SQ BID [facility] Last Admin: 03/12/20 09:38 Dose: 5,000 unit Documented by: Meropenem 500 mg/ Dextrose 100 mls @ 200 mls/hr IVPB Q12H [facility] Last Admin: 03/12/20 09:38 Dose: 200 mls/hr Documented by: Lactated Ringer's (Lactated Ringers Solution) 1,000 ml in 1,000 mls @ 100 mls/hr IV ASDIR [facility] Levothyroxine Sodium (Synthroid Injection -) 12.5 mcg IVPUSH 0700 [facility] Last Admin: 03/12/20 06:29 Dose: 12.5 mcg Documented by: Multi-Ingredient Ointment (Zinc Oxide) 1 applic TP BID [facility] Last Admin: 03/12/20 09:40 Dose: 1 applic Documented by: Nystatin (Nystop Powder -) 1 applic TP BID [facility] Last Admin: 03/12/20 09:40 Dose: 1 applic Documented by: Pantoprazole Sodium (Protonix Iv) 40 mg IVPUSH DAILY [facility] Last Admin: 03/12/20 09:38 Dose: 40 mg Documented by: Triamcinolone Acetonide (Aristocort 0.1% Ointment -) 1 applic TP BID [facility] Last Admin: 03/12/20 09:39 Dose: 1 applic Documented by: - Objective Vital Signs: Vital Signs Temperature 91.9 F L 03/12/20 11:00 Pulse Rate 77 03/12/20 11:00 Respiratory Rate 28 H 03/12/20 11:00 Blood Pressure 97/43 L 03/12/20 11:00 O2 Sat by Pulse Oximetry (%) 98 03/12/20 09:00 Constitutional: Yes: Moderate Distress Cardiovascular: Yes: Bradycardia, Pulse Irregular Respiratory: Yes: Diminished, On BiPap Gastrointestinal: Yes: Soft Genitourinary: Yes: Incontinence Wound/Incision: Yes: Dressing Dry and Intact Neurological: Yes: Lethargy Psychiatric: Yes: Other Labs: CBC, BMP 03/12/20 06:00 03/12/20 06:00 INR, PTT INR 1.45 (0.83-1.09) H 03/07/20 21:25 Problem List - Problems (1) Failure to thrive Code(s): [id number] - Qualifiers: Failure to thrive age range: in adult Qualified Code(s): R62.7 - Adult failure to thrive (2) Generalized weakness Code(s): R53.1 - WEAKNESS (3) Metabolic encephalopathy Code(s): G93.41 - METABOLIC ENCEPHALOPATHY (4) Pneumonia Code(s): J18.9 - PNEUMONIA, UNSPECIFIED ORGANISM Assessment/Plan POOR OVERALL PROGNOSIS DISCUSSED WITH CUAUHTEMOC LARSON WHO DOES NOT WANT ANY AGGRESSIVE INTERVENTIONS NO LABS OR IV. BIPAP SUPPORT PAIN CONTROL
[2020-03-12] MEDS ORDERED: morphine SULFATE 4 MG/ML VIAL IVPUSH ONE (14:28)
[2020-03-12] MEDS ORDERED: MORPHINE SULFATE/0.9% NACL/PF 100 MG/100 ML BAG IVPB SCH (14:30)
[2020-03-12 21:41] VITALS: BP 40/25; PULSE 65; TEMP 95.6
== END 2020-03-12 23:16 | disposition expired | DRG 871 ==
LOC: JER 20:02 → JERBED 22:11 → JICU 03-08 15:08
PROVIDERS: ADMIT Internal Medicine; ATTEND Family Medicine
PROC: 5A09457 Assistance with Respiratory Ventilation, 24-96 Consecutive Hours, Continuous Positive Airway Pressure (ICD-10-PCS; principal; 2020-03-10)
DX: A41.9 Sepsis, unspecified organism (principal); G93.41 Metabolic encephalopathy; J96.02 Acute respiratory failure with hypercapnia; J96.01 Acute respiratory failure with hypoxia; J18.9 Pneumonia, unspecified organism; N17.9 Acute kidney failure, unspecified; L03.116 Cellulitis of left lower limb; E78.5 Hyperlipidemia, unspecified; Z88.0 Allergy status to penicillin; E87.5 Hyperkalemia; K21.9 Gastro-esophageal reflux disease without esophagitis; Z87.891 Personal history of nicotine dependence; E03.9 Hypothyroidism, unspecified; J44.9 Chronic obstructive pulmonary disease, unspecified; M54.5 Low back pain; F41.9 Anxiety disorder, unspecified; I34.0 Nonrheumatic mitral (valve) insufficiency; I36.1 Nonrheumatic tricuspid (valve) insufficiency; L89.152 Pressure ulcer of sacral region, stage 2; Z11.59 Encounter for screening for other viral diseases; Z86.73 Personal history of transient ischemic attack (TIA), and cerebral infarction without residual deficits; E86.1 Hypovolemia; I11.0 Hypertensive heart disease with heart failure; I50.9 Heart failure, unspecified
CPT/HCPCS: 36415; 36600; 70450-TC; 71045-TC-FY; 72125-TC; 72170-TC-FY; 80053; 81003; 82550; 82607; 82746; 82803; 83605; 83735; 83880; 84100; 84439; 84443; 84484; 85025; 85610; 85730; 86780; 86850; 86900; 86901; 87040; 87081; 87086; 87899; 93005; 93010; 93306-TC; 94660; 97161-GP; 99285-25; J0131; J1644; P9047; U0003